=== PATIENT | male | born 1960 | race Caucasian/White ===

== ENCOUNTER 2021-05-10 09:22 | Outpatient (REF) | payer BC, SELFPAY ==
[2021-05-10 09:41] LABS: MANUAL DIFF FLAG NO
[2021-05-10 10:06] LABS: Basophils Percent Auto 0.4 % (0-2); Eosinophils Absolute Auto 0.1 X10*3/uL (0.0-0.4); Hematocrit 44.9 % (42.0-52.0); Hemoglobin 14.9 g/dl (14.0-18.0); Imm Gran Abs Auto 0.01 X10*3/uL (0.00-0.03); Imm Gran Pct Auto 0.2 % (0.0-0.4); Lymphocytes Absolute Auto 2.3 X10*3/uL (1.2-4.9); Lymphocytes Percent Auto 45.9 % (20-40); Mean Corpuscular HGB Conc 33.2 g/dl (31.0-36.0); Mean Corpuscular Hemoglobin 28.5 pg (27.0-33.0); Mean Corpuscular Volume 85.9 fL (80.0-98.0); Mean Platelet Volume 10.4 fL (9.4-12.4); Monocytes Absolute Auto 0.5 X10*3/uL (0.1-1.2); Monocytes Percent Auto 9.1 % (2-11); Neutrophils Absolute Auto 2.16 x10*3/uL (2.0-8.3); Neutrophils Percent Auto 43.4 % (45-73); Platelet Count 250 X10*3/uL (160-400); Red Blood Count 5.23 X10*6/uL (4.60-5.80); Red Cell Distribution Width 13.2 % (11.0-16.0)
[2021-05-10 10:42] LABS: Alanine Aminotransferase 31 U/L (0-40); Albumin Level 4.7 g/dL (3.5-5.0); Alkaline Phosphatase 50 U/L (39-117); Anion Gap 12 (12-20); Aspartate Amino Transferase 18 U/L (5-37); Blood Urea Nitrogen 14 mg/dL (9-16); Calcium 9.2 mg/dL (8.4-10.2); Carbon Dioxide 28 mmol/L (22-29); Chloride 105 mmol/L (96-108); Cholesterol 190 mg/dL; Estimated Glomerular Filt Rate > 60; Glucose Fasting 135 mg/dL (60-99); HDL Cholesterol 40 mg/dL; LDL Cholesterol Calculated 129 mg/dl; Potassium 4.9 mmol/L (3.3-5.1); Sodium 140 mmol/L (135-145); Total Protein 7.2 g/dL (6.5-8.0); Triglycerides 106 mg/dL
[2021-05-10 10:45] LABS: Thyroid Stimulating Hormone 2.31 uIU/mL (0.32-4.0)
== END 2021-05-10 09:23 | disposition home or self-care (01) ==
LOC: HO.LAB 09:22
PROVIDERS: PCP Internal Medicine; Visit Provider Internal Medicine
DX: Z00.00 Encounter for general adult medical examination without abnormal findings (principal); E11.9 Type 2 diabetes mellitus without complications; E03.9 Hypothyroidism, unspecified
CPT/HCPCS: 36415; 80053; 80061; 84443; 85025

== ENCOUNTER → 2021-06-27 12:52 | Outpatient (REF) | payer BC, SELFPAY | LOC: HO.SL 12:52 | PROVIDERS: PCP Internal Medicine; Visit Provider Internal Medicine | DX: R06.81 Apnea, not elsewhere classified (principal) | CPT/HCPCS: 95806 ==

== ENCOUNTER 2021-06-27 13:04 | Outpatient (REF) | payer BC, SELFPAY ==
[2021-06-27 16:11] LABS: COVID-19 Test Negative (Negative); IDNOW Serial# 16C4AD1C
== END 2021-06-27 13:05 | disposition home or self-care (01) ==
LOC: HO.LAB 13:04
PROVIDERS: Visit Provider Internal Medicine
DX: Z20.822 Contact with and (suspected) exposure to COVID-19 (principal)
CPT/HCPCS: 36415; 87635; C9803

== ENCOUNTER 2021-11-23 12:41 | Outpatient (REF) | payer BC, SELFPAY ==
--- NOTE | ~2021-11-23 | CT_ITS ---
CT SINUS WITHOUT CONTRAST CLINICAL INFORMATION: Deviated septum. Snoring. COMPARISON: Sinus CT 04/11/2018. TECHNIQUE: Multidetector CT acquisition of the maxillofacial region is obtained without contrast. Multiplanar reformats are acquired and utilized for image interpretation. This CT examination was performed using dose optimization techniques as appropriate, variously including the following: *Automated exposure control *Adjustment of mA and/or kV according to patient size (this includes techniques or standardized protocols for targeted exams where dose is matched to indication/reason for exam; i.e. extremities or head) *Use of iterative reconstruction technique FINDINGS: Significant polypoid opacification of the right maxillary sinus which also exhibits moderate mucosal thickening. There is mild mucosal thickening within the left maxillary sinus. The sphenoid sinuses are clear. The posterior right ethmoid air cell is opacified and there is mild mucosal thickening within the ethmoid air cells bilaterally. The frontal sinuses are clear. There is rightward deviation of the cartilaginous nasal septum and the bony cartilaginous nasal septal junction and there is leftward deviation of the bony nasal septum with a leftward directed nasal septal spur. Right maxillary ostium and infundibulum are opacified. No polypoid soft tissue within the nasal cavities. Left fovea ethmoidalis is 3 mm deeper than the right side. The bony orbits are intact. Internal carotid arteries remain well covered with bone. Mastoid air cells and middle ear cavities are clear. The TMJs are normal. Significant periapical lucency surrounding the roots of the right first maxillary molar with associated focal dehiscence of the right maxillary sinus floor, predisposing to odontogenic sinusitis. Possible superior semicircular canal dehiscence bilaterally that can be correlated for clinical signs of third window phenomenon. No significant soft tissue findings. CT/CT sinus wo con IMPRESSION: - Significant polypoid opacification of the right maxillary sinus which also exhibits moderate mucosal thickening. Right maxillary ostium and infundibulum are opacified. Additional mild sinus mucosal disease as described. - There is rightward deviation of the cartilaginous nasal septum and the bony cartilaginous nasal septal junction and there is leftward deviation of the bony nasal septum with a leftward directed nasal septal spur. - Significant periapical lucency surrounding the roots of the right first maxillary molar with associated focal dehiscence of the right maxillary sinus floor, predisposing to odontogenic sinusitis. - Possible superior semicircular canal dehiscence bilaterally that can be correlated for clinical signs of third window phenomenon.
== END 2021-11-23 12:42 | disposition home or self-care (01) ==
LOC: HO.CT 12:41
PROVIDERS: PCP Internal Medicine; Visit Provider Otolaryngology
DX: J34.2 Deviated nasal septum (principal); R06.83 Snoring
CPT/HCPCS: 70486

== ENCOUNTER 2022-05-23 09:00 | Outpatient (REF) | payer BC, SELFPAY ==
[2022-05-23 09:15] LABS: MANUAL DIFF FLAG NO
[2022-05-23 10:09] LABS: Basophils Percent Auto 0.5 % (0-2); Eosinophils Absolute Auto 0.1 X10*3/uL (0.0-0.4); Eosinophils Percent Auto 0.8 % (0-4); Hematocrit 43.7 % (42.0-52.0); Hemoglobin 14.9 g/dl (14.0-18.0); Imm Gran Abs Auto 0.02 X10*3/uL (0.00-0.03); Imm Gran Pct Auto 0.3 % (0.0-0.4); Lymphocytes Absolute Auto 2.5 X10*3/uL (1.2-4.9); Lymphocytes Percent Auto 42.2 % (20-40); Mean Corpuscular HGB Conc 34.1 g/dl (31.0-36.0); Mean Corpuscular Hemoglobin 29.3 pg (27.0-33.0); Mean Corpuscular Volume 85.9 fL (80.0-98.0); Mean Platelet Volume 9.9 fL (9.4-12.4); Monocytes Absolute Auto 0.5 X10*3/uL (0.1-1.2); Monocytes Percent Auto 7.5 % (2-11); Neutrophils Absolute Auto 2.9 x10*3/uL (2.0-8.3); Neutrophils Percent Auto 48.7 % (45-73); Platelet Count 240 X10*3/uL (160-400); Red Blood Count 5.09 X10*6/uL (4.60-5.80)
[2022-05-23 10:22] LABS: Alanine Aminotransferase 38 U/L (0-40); Albumin Level 4.5 g/dL (3.5-5.0); Alkaline Phosphatase 56 U/L (39-117); Anion Gap 13 (12-20); Aspartate Amino Transferase 20 U/L (5-37); Bilirubin Total 0.4 mg/dL (0.0-1.0); Blood Urea Nitrogen 10 mg/dL (9-16); Calcium 9.1 mg/dL (8.4-10.2); Carbon Dioxide 27 mmol/L (22-29); Chloride 103 mmol/L (96-108); Cholesterol 209 mg/dL; Estimated Glomerular Filt Rate > 60; Glucose Fasting 164 mg/dL (60-99); HDL Cholesterol 40 mg/dL; LDL Cholesterol Calculated 130 mg/dl; Potassium 4.3 mmol/L (3.3-5.1); Sodium 139 mmol/L (135-145); Total Protein 7.1 g/dL (6.5-8.0); Triglycerides 196 mg/dL
[2022-05-23 10:44] LABS: Thyroid Stimulating Hormone 3.12 uIU/mL (0.32-4.0)
[2022-05-23 10:47] LABS: Estimated Average Glucose 146 mg/dL; Hemoglobin A1c % 6.7 %
== END 2022-05-23 09:01 | disposition home or self-care (01) ==
LOC: HO.LAB 09:00
PROVIDERS: PCP Internal Medicine; Visit Provider Internal Medicine
DX: E78.5 Hyperlipidemia, unspecified (principal); E03.9 Hypothyroidism, unspecified; E11.9 Type 2 diabetes mellitus without complications; I10 Essential (primary) hypertension; Z13.0 Encounter for screening for diseases of the blood and blood-forming organs and certain disorders involving the immune mechanism
CPT/HCPCS: 36415; 80053; 80061; 83036; 84443; 85025

== ENCOUNTER 2023-02-06 13:25 | Outpatient (AMB) | payer BC, SELFPAY ==
--- NOTE | 2023-02-06 13:26 | MHC.PC.OV ---
Vital Signs 02/06/23 13:27 Height 5 ft 11 in Weight 211 lb 6 oz BMI 29.5 BP 140/90 H Blood Pressure Location Lt brachial Position Sitting Pulse 85 Pulse Source Pulse Oximeter Pulse Oximetry (%) 96 Oxygen Delivery Method Room Air Intake Visit Reasons: Med Review Intake Note: Patient is here to follow up on medication review. 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 Sister No problems noted. Daughter No problems noted. Daughter No problems noted. Social History Housing: House Alcohol intake: current Alcohol intake frequency: a few times a week Alcohol type: beer Patient Tobacco Use Status: Never used Tobacco e-Cigarette/Vaping Use: Never Used Second Hand Smoke Exposure: Yes service: No Current occupational status: employed Current occupational exposures/hazards: No Cognitive needs: No Hearing needs: No Vision needs: No Questionnaire PHQ-9 Over the last 2 weeks, how often have you been bothered by any of the following problems? Depression Screening Interpretation: Negative Source: Developed by Drs. Scot Ruiz, Michael Ocampo and colleagues, with an educational tito from [employer]. Thrive Questionnaire Date Thrive assessed: 11/17/22 Currently or been in a relationship where the following occur: no concerns reported SUZANNE-7 AMB Questionnaire SUZANNE-7 Date SUZANNE - 7 assessed: 11/17/22 Source: Developed by Drs. Scot Ruiz, Michael Ocampo and colleagues, with an educational tito from [employer]. Review of Systems Const Denies chills, Denies headache(s) and Denies weight loss ENT Denies headache(s) Card Denies chest pain, Denies syncope, Denies irregular heart rhythm and Denies dyspnea Resp Denies chest congestion, Denies cough and Denies dyspnea GI Denies abdominal pain, Denies change in stool character, Denies nausea and Denies vomiting Musc Denies deformity and Denies joint swelling Neuro Denies syncope and Denies headache(s) Physical exam (Primary Care) Vital Signs: Last Vital Signs Pulse 85 02/06/23 13:27 BP 140/90 H 02/06/23 13:27 Pulse Ox 96 02/06/23 13:27 Oxygen Delivery Method Room Air 02/06/23 13:27 BMI result Body Mass Index 29.5 Tobacco/Smoking Status: Tobacco use Status Tobacco use date assessed 02/06/23 02/06/23 13:31 Patient Tobacco Use Status Never used Tobacco 02/06/23 13:31 e-Cigarette/Vaping Use Never Used 02/06/23 13:31 Depression Screening Interpretation: Negative Thrive Assessment: Date of Thrive Assessment Date Thrive assessed 11/17/22 02/06/23 13:31 Currently or been in a relationship where the following occur: no concerns reported Const General: cooperative, comfortable and no acute distress Resp Effort & Inspection: normal respiratory effort Auscultation: clear to auscultation bilaterally Percussion: percussion normal Cardio Jugular venous distension: no JVD Rate: regular rate Rhythm: regular rhythm GI Inspection: Yes normal to inspection Assessment and Plan Assessment & Plan (1) Back pain: Code(s): M54.9 - Dorsalgia, unspecified Plan: stable; same rx Medications: Refilled oxycodone 5 mg PO Q6H PRN 112 tabs 0RF pain 28 days sildenafil administer 30 minutes to 4 hours before activity 50 mg PO DAILY PRN 60 tabs 8RF sexual activity Coding Level of Care Code Est Pt Level 3 (49970) Diagnoses Back pain M54.9
[2023-02-06 13:27] VITALS: BP 140/90; PULSE 85; O2SAT 96; BMI 29.5
== END 2023-02-06 13:55 | disposition home or self-care (01) ==
PROVIDERS: PCP Internal Medicine; Visit Provider Internal Medicine
DX: M54.9 Dorsalgia, unspecified (principal)
CPT/HCPCS: 99213

== ENCOUNTER 2023-03-06 13:04 | Outpatient (AMB) | payer BC, SELFPAY ==
--- NOTE | 2023-03-06 13:05 | A.OFFPC_ITS ---
Vital Signs 03/06/23 13:06 Height 5 ft 11 in Weight 208 lb 8 oz BMI 29.1 BP 136/82 Blood Pressure Location Lt brachial Position Sitting Pulse 104 H Pulse Source Pulse Oximeter Pulse Oximetry (%) 96 Oxygen Delivery Method Room Air Intake Visit Reasons: Med Review Intake Note: Patient is here to follow up on med review. 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 Sister No problems noted. Daughter No problems noted. Daughter No problems noted. Social History Housing: House Alcohol intake: current Alcohol intake frequency: a few times a week Alcohol type: beer Patient Tobacco Use Status: Never used Tobacco e-Cigarette/Vaping Use: Never Used Second Hand Smoke Exposure: Yes service: No Current occupational status: employed Current occupational exposures/hazards: No Cognitive needs: No Hearing needs: No Vision needs: No Questionnaire PHQ-9 Over the last 2 weeks, how often have you been bothered by any of the following problems? Depression Screening Interpretation: Negative Source: Developed by Drs. Scot Ruiz, Michael Ocampo and colleagues, with an educational tito from [employer] Thrive Questionnaire Date Thrive assessed: 11/17/22 Currently or been in a relationship where the following occur: no concerns reported SUZANNE-7 AMB Questionnaire SUZANNE-7 Date SUZANNE - 7 assessed: 11/17/22 Source: Developed by Drs. Scot Ruiz, Michael Ocampo and colleagues, with an educational tito from [employer] Review of Systems Const Denies chills, Denies headache(s) and Denies weight loss ENT Denies headache(s) Card Denies chest pain, Denies syncope, Denies irregular heart rhythm and Denies dyspnea Resp Denies chest congestion, Denies cough and Denies dyspnea GI Denies abdominal pain, Denies change in stool character, Denies nausea and Denies vomiting Musc Denies deformity and Denies joint swelling Neuro Denies syncope and Denies headache(s) Physical exam (Primary Care) Vital Signs: Last Vital Signs Pulse 104 H 03/06/23 13:06 BP 136/82 03/06/23 13:06 Pulse Ox 96 03/06/23 13:06 Oxygen Delivery Method Room Air 03/06/23 13:06 BMI result Body Mass Index 29.1 Tobacco/Smoking Status: Tobacco use Status Tobacco use date assessed 03/06/23 03/06/23 13:10 Patient Tobacco Use Status Never used Tobacco 03/06/23 13:10 e-Cigarette/Vaping Use Never Used 03/06/23 13:10 Depression Screening Interpretation: Negative Thrive Assessment: Date of Thrive Assessment Date Thrive assessed 11/17/22 03/06/23 13:10 Currently or been in a relationship where the following occur: no concerns repo rted Const General: cooperative, comfortable and no acute distress Resp Effort & Inspection: normal respiratory effort Auscultation: clear to auscultation bilaterally Percussion: percussion normal Cardio Jugular venous distension: no JVD Rate: regular rate Rhythm: regular rhythm GI Inspection: Yes normal to inspection Assessment and Plan Assessment & Plan (1) Back pain: Code(s): M54.9 - Dorsalgia, unspecified Plan: stable; same rx Medications: Refilled oxycodone 5 mg PO Q6H PRN 112 tabs 0RF pain 28 days Coding Level of Care Code Est Pt Level 3 (05411) Diagnoses Back pain M54.9
[2023-03-06 13:06] VITALS: BP 136/82; PULSE 104; O2SAT 96; BMI 29.1
== END 2023-03-06 13:24 | disposition home or self-care (01) ==
PROVIDERS: PCP Internal Medicine; Visit Provider Internal Medicine
DX: M54.9 Dorsalgia, unspecified (principal)
CPT/HCPCS: 99213

== ENCOUNTER 2023-04-03 13:21 | Outpatient (AMB) | payer BC, SELFPAY ==
[2023-04-03 14:00] VITALS: BP 132/62; PULSE 67; O2SAT 98; BMI 29.0
--- NOTE | 2023-04-03 14:00 | A.OFFPC_ITS ---
Vital Signs 04/03/23 14:00 Height 5 ft 11 in Weight 208 lb BMI 29.0 BP 132/62 Blood Pressure Location Lt brachial Position Sitting Pulse 67 Pulse Source Pulse Oximeter Pulse Oximetry (%) 98 Oxygen Delivery Method Room Air Intake Visit Reasons: Med Management Utility Specialist: Not Required per policy Accompanied by: Self / Same As Patient Allergies No Known Allergies Allergy (Verified 04/03/23 14:00) Medication List - Last Reconciled 04/03/23 by Juaquin Martin MD oxycodone 5 mg PO Q6H PRN 28 days sildenafil 50 mg PO DAILY PRN Tobacco use date assessed: 03/06/23 Dental Screening Dental Screen Date: 04/03/23 Did you have a dental visit in the last 12 months?: No Did you have a dental problem in the last 6 months where you did not have access to dental care?: No Was dental information given to patient?: Patient has dentist HPI Med Management HPI Details f/u chronic back pain; doing well; compliant [facility] Medical History Back pain Surgical History History of vasectomy Family History Father Heart disease Mother Diabetes Brother No problems noted. Sister No problems noted. Daughter No problems noted. Daughter No problems noted. Social History Housing: House Alcohol intake: current Alcohol intake frequency: a few times a week Alcohol type: beer Patient Tobacco Use Status: Never used Tobacco e-Cigarette/Vaping Use: Never Used Second Hand Smoke Exposure: Yes service: No Current occupational status: employed Current occupational exposures/hazards: No Cognitive needs: No Hearing needs: No Vision needs: No Questionnaire PHQ-9 Over the last 2 weeks, how often have you been bothered by any of the following problems? 1. Little interest or pleasure in doing things: not at all 2. Feeling down, depressed, or hopeless: not at all 3. Trouble falling or staying asleep, or sleeping too much: not at all 4. Feeling tired or having little energy: not at all 5. Poor appetite or overeating: not at all 6. Feeling bad about yourself - or that you are a failure or have let yourself or your family down: not at all 7. Trouble concentrating on things, such as reading the newspaper or watching television: not at all 8. Moving or speaking so slowly that other people could have noticed. Or the opposite - being so fidgety or restless that you have been moving around a lot more than usual: not at all 9. Thoughts that you would be better off or of hurting yourself in some way: not at all Total score: 0 Depression Screening Interpretation: Negative 22336 - PHQ-9 Billing: Yes Source: Developed by Drs. Scot Ruiz, Jessica Shelton, Michael Martinez and colleagues, with an educational tito from [employer]. Thrive Questionnaire Date Thrive assessed: 11/17/22 AUDIT C Alcohol Use Questionnaire (AUDIT-C) 1. How often do you have a drink containing alcohol?: 4 or more times a week 2. How many drinks containing alcohol do you have on a typical day when you are drinking?: 1 or 2 3. How often do you have six or more drinks on one occasion?: Never Total Score: 4 Score Reviewed/Action Taken: Yes SUZANNE-7 AMB Questionnaire SUZANNE-7 Date SUZANNE - 7 assessed: 11/17/22 Source: Developed by Drs. Scot Ruiz, Jessica Shelton, Michael Martinez and colleagues, with an educational tito from [employer]. SUZANNE-7 Assessment Billing SUZANNE-7 Assessment Tool: SUZANNE-7 Assessment 94110 Review of Systems Const Denies chills, Denies headache(s) and Denies weight loss ENT Denies headache(s) Card Denies chest pain, Denies syncope, Denies irregular heart rhythm and Denies dyspnea Resp Denies chest congestion, Denies cough and Denies dyspnea GI Denies abdominal pain, Denies change in stool character, Denies nausea and Denies vomiting Musc Denies deformity and Denies joint swelling Neuro Denies syncope and Denies headache(s) Physical exam (Primary Care) Vital Signs: Last Vital Signs Pulse 67 04/03/23 14:00 BP 132/62 04/03/23 14:00 Pulse Ox 98 04/03/23 14:00 Oxygen Delivery Method Room Air 04/03/23 14:00 BMI result Body Mass Index 29.0 Tobacco/Smoking Status: Tobacco use Status Tobacco use date assessed 03/06/23 04/03/23 14:01 Patient Tobacco Use Status Never used Tobacco 04/03/23 14:01 e-Cigarette/Vaping Use Never Used 04/03/23 14:01 PHQ-9: PHQ-9 Score PHQ-9: Total score 0 04/03/23 14:47 Depression Screening Interpretation: Negative Thrive Assessment: Date of Thrive Assessment Date Thrive assessed 11/17/22 04/03/23 14:01 Const General: cooperative, comfortable, no acute distress and alert Neck Neck: Yes no lymphadenopathy Thyroid: Thyroid normal Resp Effort & Inspection: normal respiratory effort Auscultation: clear to auscultation bilaterally Percussion: percussion normal Cardio Jugular venous distension: no JVD Palpation: normal PMI Rate: regular rate Rhythm: regular rhythm Heart sounds: S1 normal heart sound present and S2 normal heart sound present GI Inspection: Yes normal to inspection Palpation (GI): No hepatosplenomegaly present Skin General skin exam: no rashes or lesions noted Extrem General: Yes no clubbing, cyanosis or edema Assessment and Plan Assessment & Plan (1) Back pain: Code(s): M54.9 - Dorsalgia, unspecified Plan: stable; same rx Medications: New loratadine (Allergy Relief (loratadine)) 10 mg PO DAILY PRN 60 tabs 3RF allergy symptoms Refilled oxycodone 5 mg PO Q6H PRN 112 tabs 0RF pain 28 days Coding Level of Care Code Est Pt Level 3 (37110) Diagnoses Back pain M54.9 Additional Codes SUZANNE-7 Assessment Billing - SUZANNE-7 Assessment Tool: SUZANNE-7 Assessment [id number] ([id number])
== END 2023-04-03 15:42 | disposition home or self-care (01) ==
PROVIDERS: PCP Internal Medicine; Visit Provider Internal Medicine
DX: M54.9 Dorsalgia, unspecified (principal)
CPT/HCPCS: 99213

== ENCOUNTER 2023-05-01 13:54 | Outpatient (AMB) | payer BC, SELFPAY ==
--- NOTE | 2023-05-01 13:57 | A.OFFPC_ITS ---
Vital Signs 05/01/23 13:58 Height 5 ft 11 in Weight 208 lb BMI 29.0 BP 154/94 H Blood Pressure Location Lt brachial Position Sitting Pulse 68 Pulse Source Pulse Oximeter Pulse Oximetry (%) 98 Oxygen Delivery Method Room Air Intake Visit Reasons: Med Management Allergies No Known Allergies Allergy (Verified 05/01/23 13:58) Medication List - Last Reconciled 05/01/23 by Juaquin Martin MD loratadine (Allergy Relief (loratadine)) 10 mg PO DAILY PRN oxycodone 5 mg PO Q6H PRN 28 days sildenafil 50 mg PO DAILY PRN Tobacco use date assessed: 03/06/23 Dental Screening Dental Screen Date: 05/01/23 Did you have a dental visit in the last 12 months?: No Did you have a dental problem in the last 6 months where you did not have access to dental care?: No Was dental information given to patient?: Patient has dentist HPI Med Management HPI Details chronic back pain; doing well and compliant [facility] Medical History Back pain Surgical History History of vasectomy Family History Father Heart disease Mother Diabetes Brother No problems noted. Sister No problems noted. Daughter No problems noted. Daughter No problems noted. Social History Housing: House Alcohol intake: current Alcohol intake frequency: a few times a week Alcohol type: beer Patient Tobacco Use Status: Never used Tobacco e-Cigarette/Vaping Use: Never Used Second Hand Smoke Exposure: Yes service: No Current occupational status: employed Current occupational exposures/hazards: No Cognitive needs: No Hearing needs: No Vision needs: No Questionnaire PHQ-9 Over the last 2 weeks, how often have you been bothered by any of the following problems? 1. Little interest or pleasure in doing things: not at all 2. Feeling down, depressed, or hopeless: not at all 3. Trouble falling or staying asleep, or sleeping too much: not at all 4. Feeling tired or having little energy: not at all 5. Poor appetite or overeating: not at all 6. Feeling bad about yourself - or that you are a failure or have let yourself or your family down: not at all 7. Trouble concentrating on things, such as reading the newspaper or watching television: not at all 8. Moving or speaking so slowly that other people could have noticed. Or the opposite - being so fidgety or restless that you have been moving around a lot more than usual: not at all 9. Thoughts that you would be better off or of hurting yourself in some way: not at all Total score: 0 Depression Screening Interpretation: Negative Depression Screening Done: Yes [id number] - PHQ-9 Billing: Yes Source: Developed by Drs. Scot Ruiz, Jessica Shelton, Michael Martinez and colleagues, with an educational tito from [employer]. Thrive Questionnaire Date Thrive assessed: 11/17/22 AUDIT C Alcohol Use Questionnaire (AUDIT-C) 1. How often do you have a drink containing alcohol?: 4 or more times a week 2. How many drinks containing alcohol do you have on a typical day when you are drinking?: 1 or 2 3. How often do you have six or more drinks on one occasion?: Never Total Score: 4 Score Reviewed/Action Taken: Yes SUZANNE-7 AMB Questionnaire SUZANNE-7 Date SUZANNE - 7 assessed: 11/17/22 Source: Developed by Drs. Scot Ruiz, Michael Ocampo and colleagues, with an educational tito from [employer]. Review of Systems Const Denies chills, Denies headache(s) and Denies weight loss ENT Denies headache(s) Card Denies chest pain, Denies syncope, Denies irregular heart rhythm and Denies dyspnea Resp Denies chest congestion, Denies cough and Denies dyspnea GI Denies abdominal pain, Denies change in stool character, Denies nausea and Denies vomiting Musc Denies deformity and Denies joint swelling Neuro Denies syncope and Denies headache(s) Physical exam (Primary Care) Vital Signs: Last Vital Signs Pulse 68 05/01/23 13:58 BP 154/94 H 05/01/23 13:58 Pulse Ox 98 05/01/23 13:58 Oxygen Delivery Method Room Air 05/01/23 13:58 BMI result Body Mass Index 29.0 Tobacco/Smoking Status: Tobacco use Status Tobacco use date assessed 03/06/23 05/01/23 13:59 Patient Tobacco Use Status Never used Tobacco 05/01/23 13:59 e-Cigarette/Vaping Use Never Used 05/01/23 13:59 PHQ-9: PHQ-9 Score PHQ-9: Total score 0 05/01/23 14:05 Depression Screening Interpretation: Negative Thrive Assessment: Date of Thrive Assessment Date Thrive assessed 11/17/22 05/01/23 13:59 Const General: cooperative, comfortable, no acute distress and alert Neck Neck: Yes no lymphadenopathy Thyroid: Thyroid normal Resp Effort & Inspection: normal respiratory effort Auscultation: clear to auscultation bilaterally Percussion: percussion normal Cardio Jugular venous distension: no JVD Palpation: normal PMI Rate: regular rate Rhythm: regular rhythm Heart sounds: S1 normal heart sound present and S2 normal heart sound present GI Inspection: Yes normal to inspection Palpation (GI): No hepatosplenomegaly present Skin General skin exam: no rashes or lesions noted Extrem General: Yes no clubbing, cyanosis or edema Assessment and Plan Assessment & Plan (1) Back pain: Code(s): M54.9 - Dorsalgia, unspecified Plan: stable; same rx Medications: New azithromycin take 500 mg today (day 1), then 250 mg for 4 days (days 2-5) PO 6 tabs 0RF Refilled oxycodone 5 mg PO Q6H PRN 112 tabs 0RF pain 28 days Coding Level of Care Code Est Pt Level 3 (51579) Diagnoses Back pain M54.9
[2023-05-01 13:58] VITALS: BP 154/94; PULSE 68; O2SAT 98; BMI 29.0
== END 2023-05-01 14:11 | disposition home or self-care (01) ==
PROVIDERS: PCP Internal Medicine; Visit Provider Internal Medicine
DX: M54.9 Dorsalgia, unspecified (principal)
CPT/HCPCS: 99213

== ENCOUNTER 2023-05-23 10:14 | Outpatient (AMB) | payer OTHER, BC, SELFPAY ==
--- NOTE | 2023-05-23 10:45 | AM.OFFWIN_ITS ---
Intake Vital Signs 05/23/23 10:51 Height 5 ft 11 in Weight 95.254 kg BMI 29.3 BP 160/80 H Blood Pressure Location Rt brachial Position Sitting Pulse 83 Pulse Source Pulse Oximeter Temp 97.8 F Temp Source Temporal Artery Scan Pulse Oximetry (%) 98 Intake Visit Reasons: EP Work Comp injured lft low back lifting Intake Note: pt is here for c/o back pain due to lifting this morning Patient Tobacco Use Status: Never used Tobacco Allergies No Known Allergies Allergy (Verified 05/23/23 10:53) Do you need a note to return to daycare/school/sports/work: Yes HPI HPI Comments History of Present Illness Details [id number] 62-year-old male without significant medical history presents for evaluation of lower back pain that started at around 9 this morning at his workplace, patient reports he was lifting and 90 lb box, after lifting the box he reports he immediately started experiencing left lower back pain without radiation, reports an aching pain, worse with movement and ambulation better at rest. Patient had a remote history of back issues in the past however this feels slightly different. Denies red flag symptoms such as urinary /bowel incontinence /retention, numbness, tingling, weakness of fevers, chills. No midline tenderness, no C-spine tenderness, full range of motion, no CVA tenderness bilaterally + TTP to left lumbar paraspinous muscles throughout + straight leg raise on the left Likely lumbar paraspinous muscle spasms versus herniated disc versus lumbar radiculopathy versus sciatica. Unlikely cord compression, epidural abscess, cauda equina. Plan will discharge with naproxen, Lidoderm patch, prednisone. Will obtain x- ray of lower back. Educated patient on diagnosis and treatment plan, answered all question, patient verbalizes understanding. At this time patient will be discharged home, advised to return with new or worsening symptoms. Educated on worrisome signs and symptoms and when to return. At this time I feel comfortable discharge home. [facility] Medical History Back pain Surgical History History of vasectomy Family History Father Heart disease Mother Diabetes Brother No problems noted. Sister No problems noted. Daughter No problems noted. Daughter No problems noted. Social History Housing: House Alcohol intake: current Alcohol intake frequency: a few times a week Alcohol type: beer Patient Tobacco Use Status: Never used Tobacco e-Cigarette/Vaping Use: Never Used Second Hand Smoke Exposure: Yes service: No Current occupational status: employed Current occupational exposures/hazards: No Cognitive needs: No Hearing needs: No Vision needs: No Review of Systems Const Details: Constitutional : No Weight loss, No Fever, No Chills, ENT/Mouth : No Hearing loss, No Ear Pain, No Nasal Congestion, No Sinus Pain, No Hoarseness, No sore throat, No Rhinorrhea, No Swallowing Difficulty Cardiovascular : No Chest Pain, No SOB Respiratory : No Cough, No Dyspnea Gastrointestinal : No Nausea, No Vomiting, No Diarrhea, No abdominal Pain, No Hematochezia, No Melena Genitourinary : No Dysuria, No Urinary Frequency, No Hematuria, No Urinary Incontinence, Musculoskeletal : positive back pain Skin : No Skin Lesions, No rash Neuro : No Weakness, No Numbness, No Paresthesias, no loss of bowel or bladder incontinence, no saddle anesthesia All systems reviewed & are unremarkable except as noted in HPI and below Physical Exam Vital Signs: Last Vital Signs Temp 97.8 F 05/23/23 10:51 Pulse 83 05/23/23 10:51 BP 160/80 H 05/23/23 10:51 Pulse Ox 98 05/23/23 10:51 BMI result Body Mass Index 29.3 vss Appearance: Alert.? Oriented X3.? No acute distress.? Head: Normocephalic, atraumatic, no step-offs or deformities Eyes: Pupils equal, round and reactive to light.? CVS: Normal heart rate and rhythm.? Pulses normal.? Respiratory: No respiratory distress.? Breath sounds normal.? Abdomen: Soft and nontender.? Skin: Skin warm and dry.? Normal skin color.? Normal skin turgor.? Extremities: No lower extremity edema.? No calf ttp. 5/5 strength to bilateral upper and lower extremities Back: No midline tenderness, no C-spine tenderness, full range of motion, no CVA tenderness bilaterally + TTP to left lumbar paraspinous muscles throughout + straight leg raise on the left Neuro: Oriented X 3.? No motor deficit.? No sensory deficit. CN 2-12 intact . Ambulating with steady gait normal coordination. No saddle paresthesias. Assessment & Plan Assessment & Plan (1) Lower back pain: Code(s): M54.50 - Low back pain, unspecified (2) Work related injury: Code(s): Y99.0 - Civilian activity done for income or pay Plan Take your medications as prescribed. If you were prescribed antibiotics today, it is important that you take your medication to their entirety, do not skip any doses, do not finish them early. Follow-up with your primary care provider this week. Return to the emergency department with new or worsening symptoms. Such as fevers, chills, chest pain, shortness of breath, nausea, vomiting, dizziness, headache, vision changes, lethargy In case of emergency call 911 Follow-up with the work connection Orders: Orders XR lumbar spine 2-3V Today M54.50 - Low back pain, unspecified Medications: New prednisone 40 mg (2 x 20 mg) PO DAILY 10 tabs 0RF 5 days lidocaine 4% (AsperFlex (lidocaine)) 1 patch topical DAILY PRN 15 ea 0RF pain naproxen 500 mg PO BID PRN 14 tabs 0RF pain Coding Level of Care Code Est Pt Level 3 (15961) Diagnoses Lower back pain M54.50 Work related injury Y99.0
[2023-05-23 10:51] VITALS: BP 160/80; PULSE 83; TEMP 36.6; O2SAT 98; BMI 29.3
== END 2023-05-23 11:40 | disposition home or self-care (01) ==
PROVIDERS: PCP Internal Medicine; Visit Provider Physician Assistant
DX: M54.50 Low back pain, unspecified (principal); Y99.0 Civilian activity done for income or pay
CPT/HCPCS: 99213

== ENCOUNTER 2023-05-23 11:16 | Outpatient (REF) | payer OTHER, SELFPAY ==
--- NOTE | ~2023-05-23 | XR_ITS ---
EXAMINATION: XR LUMBOSACRAL SPINE CLINICAL INFORMATION: Low back pain COMPARISON: None available. TECHNIQUE: Three views of the lumbosacral spine. FINDINGS: There is anterior spondylitic change observed L2-L4. No fracture or destructive process. Vertebral body heights preserved. SI joints are symmetric. XR/XR lumbar spine 2-3V IMPRESSION: Degenerative changes noted.
== END 2023-05-23 11:17 | disposition home or self-care (01) ==
LOC: HO.HMGCX 11:16
PROVIDERS: Visit Provider Physician Assistant
DX: M54.50 Low back pain, unspecified (principal)
CPT/HCPCS: 72100

== ENCOUNTER 2023-05-25 07:53 | Outpatient (REF) | payer BC, SELFPAY ==
[2023-05-25 08:10] LABS: MANUAL DIFF FLAG NO
[2023-05-25 08:22] LABS: Basophils Percent Auto 0.3 % (0-2); Eosinophils Percent Auto 0.3 % (0-4); Hematocrit 42.8 % (42.0-52.0); Hemoglobin 14.8 g/dl (14.0-18.0); Imm Gran Abs Auto 0.02 X10*3/uL (0.00-0.03); Imm Gran Pct Auto 0.2 % (0.0-0.4); Lymphocytes Absolute Auto 2.8 X10*3/uL (1.2-4.9); Lymphocytes Percent Auto 30.3 % (20-40); Mean Corpuscular HGB Conc 34.6 g/dl (31.0-36.0); Mean Corpuscular Volume 83.9 fL (80.0-98.0); Mean Platelet Volume 9.7 fL (9.4-12.4); Monocytes Absolute Auto 0.7 X10*3/uL (0.1-1.2); Monocytes Percent Auto 7.2 % (2-11); Neutrophils Absolute Auto 5.7 x10*3/uL (2.0-8.3); Neutrophils Percent Auto 61.7 % (45-73); Platelet Count 251 X10*3/uL (160-400); Red Cell Distribution Width 13.2 % (11.0-16.0); White Blood Count 9.3 X10*3/uL (4.8-10.8)
[2023-05-25 08:42] LABS: Alanine Aminotransferase 20 U/L (0-40); Albumin Level 4.3 g/dL (3.5-5.0); Alkaline Phosphatase 57 U/L (39-117); Anion Gap 11 (12-20); Aspartate Amino Transferase 13 U/L (5-37); Bilirubin Total 0.6 mg/dL (0.0-1.0); Blood Urea Nitrogen 14 mg/dL (9-16); Calcium 8.8 mg/dL (8.4-10.2); Carbon Dioxide 26 mmol/L (22-29); Chloride 105 mmol/L (96-108); Cholesterol 190 mg/dL (<200); Estimated Glomerular Filt Rate > 60; Glucose Fasting 167 mg/dL (60-99); HDL Cholesterol 47 mg/dL (>40); LDL Cholesterol Calculated 124 mg/dL (<100); Sodium 138 mmol/L (135-145); Total Protein 7.3 g/dL (6.5-8.0); Triglycerides 95 mg/dL (<150)
[2023-05-25 08:57] LABS: Prostate Specific Antigen Scr 1.21 ng/mL (<0.05-4.0)
[2023-05-25 08:58] LABS: Thyroid Stimulating Hormone 3.16 uIU/mL (0.32-4.0)
== END 2023-05-25 07:54 | disposition home or self-care (01) ==
LOC: HO.LAB 07:53
PROVIDERS: PCP Internal Medicine; Visit Provider Internal Medicine
DX: Z00.00 Encounter for general adult medical examination without abnormal findings (principal); D64.9 Anemia, unspecified; N28.9 Disorder of kidney and ureter, unspecified; E78.5 Hyperlipidemia, unspecified; E03.9 Hypothyroidism, unspecified; Z12.5 Encounter for screening for malignant neoplasm of prostate
CPT/HCPCS: 36415; 80053; 80061; 84153; 84443; 85025

== ENCOUNTER 2023-05-28 12:34 | Outpatient (AMB) | payer BC, SELFPAY ==
--- NOTE | 2023-05-28 12:36 | MHC.PC.OV ---
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 per policy Accompanied by: Self / Same As Patient Allergies No Known Allergies Allergy (Verified 05/28/23 12:37) Medication List - Last Reconciled 05/28/23 by Juaquin Martin MD lidocaine 4% (AsperFlex (lidocaine)) 1 patch topical DAILY PRN loratadine (Allergy Relief (loratadine)) 10 mg PO DAILY PRN naproxen 500 mg PO BID PRN oxycodone 5 mg PO Q6H PRN 28 days prednisone 40 mg (2 x 20 mg) PO DAILY 5 days sildenafil 50 mg PO DAILY PRN Tobacco use date assessed: 03/06/23 Dental Screening Dental Screen Date: 05/28/23 Did you have a dental visit in the last 12 months?: Yes Did you have a dental problem in the last 6 months where you did not have access to dental care?: No Was dental information given to patient?: Patient has dentist HPI Annual Exam HPI Details chronic lumbar pain due to LDD; injured last week at work lifting with worse left paralumbar and pelvic pain; also has hyperglycemia with last A1C 6.7 PFSH Medical History Back pain Surgical History History of vasectomy Family History Father Heart disease Mother Diabetes Brother No problems noted. Sister No problems noted. Daughter No problems noted. Daughter No problems noted. Social History Housing: House Alcohol intake: current Alcohol intake frequency: a few times a week Alcohol type: beer Patient Tobacco Use Status: Never used Tobacco e-Cigarette/Vaping Use: Never Used Second Hand Smoke Exposure: Yes service: No Current occupational status: employed Current occupational exposures/hazards: No Cognitive needs: No Hearing needs: No Vision needs: No Questionnaire PHQ-9 Over the last 2 weeks, how often have you been bothered by any of the following problems? 1. Little interest or pleasure in doing things: not at all 2. Feeling down, depressed, or hopeless: not at all 3. Trouble falling or staying asleep, or sleeping too much: not at all 4. Feeling tired or having little energy: not at all 5. Poor appetite or overeating: not at all 6. Feeling bad about yourself - or that you are a failure or have let yourself or your family down: not at all 7. Trouble concentrating on things, such as reading the newspaper or watching television: not at all 8. Moving or speaking so slowly that other people could have noticed. Or the opposite - being so fidgety or restless that you have been moving around a lot more than usual: not at all 9. Thoughts that you would be better off or of hurting yourself in some way: not at all Total score: 0 Depression Screening Interpretation: Negative Depression Screening Done: Yes 25340 - PHQ-9 Billing: Yes Source: Developed by Drs. Scot Ruiz, Michael Ocampo and colleagues, with an educational tito from [employer]. Thrive Questionnaire Date Thrive assessed: 11/17/22 AUDIT C Alcohol Use Questionnaire (AUDIT-C) 1. How often do you have a drink containing alcohol?: 4 or more times a week 2. How many drinks containing alcohol do you have on a typical day when you are drinking?: 1 or 2 3. How often do you have six or more drinks on one occasion?: Never Total Score: 4 Score Reviewed/Action Taken: Yes SUZANNE-7 AMB Questionnaire SUZANNE-7 Date SUZANNE - 7 assessed: 11/17/22 Source: Developed by Drs. Scot Ruiz, Michael Ocampo and colleagues, with an educational tito from [employer]. Review of Systems Const Denies chills, Denies fatigue, Denies headache(s) and Denies weight loss Eyes Denies change in vision, Denies diplopia and Denies eye pain ENT Denies vertigo, Denies dizziness, Denies headache(s) and Denies nasal discharge Card Denies chest pain, Denies rapid heart rate and Denies dyspnea on exertion Resp Denies chest congestion, Denies cough, Denies pain with cough and Denies dyspnea on exertion GI Denies abdominal pain, Denies hematochezia and Denies change in bowel habits Musc Denies myalgias, Denies arthralgias and Denies joint swelling Skin/Breast Denies lesions and Denies unusual bruising Neuro Denies vertigo, Denies dizziness, Denies headache(s) and Denies focal weakness Endo Denies fatigue Physical exam (Primary Care) Vital Signs: Last Vital Signs Pulse 95 05/28/23 12:37 BP 152/90 H 05/28/23 12:37 Pulse Ox 98 05/28/23 12:37 Oxygen Delivery Method Room Air 05/28/23 12:37 BMI result Body Mass Index 29.7 Tobacco/Smoking Status: Tobacco use Status Tobacco use date assessed 03/06/23 05/28/23 12:38 Patient Tobacco Use Status Never used Tobacco 05/28/23 12:38 e-Cigarette/Vaping Use Never Used 05/28/23 12:38 PHQ-9: PHQ-9 Score PHQ-9: Total score 0 05/28/23 12:38 Depression Screening Interpretation: Negative Thrive Assessment: Date of Thrive Assessment Date Thrive assessed 11/17/22 05/28/23 12:38 Const General: cooperative, healthy appearing and no acute distress Orientation/consciousness: oriented to person, oriented to place and oriented to time HENPA Head: Yes normal to inspection, Yes normocephalic and Yes atraumatic Mouth: Normal oral and palatal mucosa present and tongue normal Throat: Yes posterior oropharynx normal and Yes uvula midline Eyes General: appearance normal, both eyes and all related structures Neck Neck: Yes normal visual inspection, Yes full ROM and Yes no lymphadenopathy Thyroid: Thyroid normal Carotids: normal carotid upstroke Chest Chest palpation & inspection: normal inspection of the chest Resp Effort & Inspection: normal respiratory effort and able to speak in complete sentences Auscultation: clear to auscultation bilaterally Cardio Jugular venous distension: no JVD Palpation: normal PMI Rate: regular rate Rhythm: regular rhythm Heart sounds: S1 normal heart sound present and S2 normal heart sound present GI Inspection: Yes normal to inspection Palpation (GI): Soft to palpation and No hepatosplenomegaly present Auscultation: normal bowel sounds General: Yes no CVA tenderness Back/Spine/Pelvis Back: no CVA tenderness Skin General skin exam: no rashes or lesions noted Neuro General: oriented to person, oriented to place and oriented to time Extrem General: Yes normal to inspection and Yes full ROM Assessment and Plan Assessment & Plan (1) Physical exam: Code(s): Z00.00 - Encounter for general adult medical examination without abnormal findings Plan: stable (2) Back pain: Code(s): M54.9 - Dorsalgia, unspecified Plan: add muscle relaxer for now; cont other rx (3) Hyperglycemia: Code(s): R73.9 - Hyperglycemia, unspecified Plan: recheck A1C Orders: Orders Glucose Fasting Today R73.9 - Hyperglycemia, unspecified Hemoglobin A1c Today R73.9 - Hyperglycemia, unspecified Medications: New cyclobenzaprine 10 mg PO TID PRN 30 tabs 2RF muscle spasm Refilled oxycodone 5 mg PO Q6H 28 days PRN 112 tabs 0RF pain Coding Level of Care Code Est Pt Prev Care 40-64y(49005) Diagnoses Physical exam Z00.00 Back pain M54.9 Hyperglycemia R73.9
[2023-05-28 12:37] VITALS: BP 152/90; PULSE 95; O2SAT 98; BMI 29.7
== END 2023-05-28 13:08 | disposition home or self-care (01) ==
PROVIDERS: PCP Internal Medicine; Visit Provider Internal Medicine
DX: Z00.00 Encounter for general adult medical examination without abnormal findings (principal); M54.9 Dorsalgia, unspecified; R73.9 Hyperglycemia, unspecified
CPT/HCPCS: 99396

== ENCOUNTER 2023-06-11 11:08 | Outpatient (AMB) | payer OTHER, BC, SELFPAY ==
[2023-06-11 11:18] VITALS: BP 162/90; PULSE 90; O2SAT 98; BMI 30.1
--- NOTE | 2023-06-11 11:18 | A.OFFPC_ITS ---
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 per policy Accompanied by: Self / Same As Patient Allergies No Known Allergies Allergy (Verified 06/11/23 11:19) Medication List - Last Reconciled 06/11/23 by Juaquin Martin MD cyclobenzaprine 10 mg PO TID PRN lidocaine 4% (AsperFlex (lidocaine)) 1 patch topical DAILY PRN loratadine (Allergy Relief (loratadine)) 10 mg PO DAILY PRN naproxen 500 mg PO BID PRN oxycodone 5 mg PO Q6H PRN 28 days prednisone 40 mg (2 x 20 mg) PO DAILY 5 days sildenafil 50 mg PO DAILY PRN Tobacco use date assessed: 03/06/23 Dental Screening Dental Screen Date: 06/11/23 Did you have a dental visit in the last 12 months?: Yes Did you have a dental problem in the last 6 months where you did not have access to dental care?: No Was dental information given to patient?: Patient has dentist HPI Back Pain F/U HPI Details back pain for a week; left lumbar PFSH Medical History Back pain Surgical History History of vasectomy Family History Father Heart disease Mother Diabetes Brother No problems noted. Sister No problems noted. Daughter No problems noted. Daughter No problems noted. Social History Housing: House Alcohol intake: current Alcohol intake frequency: a few times a week Alcohol type: beer Patient Tobacco Use Status: Never used Tobacco e-Cigarette/Vaping Use: Never Used Second Hand Smoke Exposure: Yes service: No Current occupational status: employed Current occupational exposures/hazards: No Cognitive needs: No Hearing needs: No Vision needs: No Questionnaire Thrive Questionnaire Date Thrive assessed: 11/17/22 SUZANNE-7 AMB Questionnaire SUZANNE-7 Date SUZANNE - 7 assessed: 11/17/22 Source: Developed by Drs. Scot Ruiz, Jessica Shelton, Michael Martinez and colleagues, with an educational tito from [employer] Review of Systems Const Denies chills, Denies headache(s) and Denies weight loss ENT Denies headache(s) Card Denies chest pain, Denies syncope, Denies irregular heart rhythm and Denies dyspnea Resp Denies chest congestion, Denies cough and Denies dyspnea GI Denies abdominal pain, Denies change in stool character, Denies nausea and Denies vomiting Musc Denies deformity and Denies joint swelling Neuro Denies syncope and Denies headache(s) Physical exam (Primary Care) Vital Signs: Last Vital Signs Pulse 90 06/11/23 11:18 BP 162/90 H 06/11/23 11:18 Pulse Ox 98 06/11/23 11:18 Oxygen Delivery Method Room Air 06/11/23 11:18 BMI result Body Mass Index 30.1 Tobacco/Smoking Status: Tobacco use Status Tobacco use date assessed 03/06/23 06/11/23 11:22 Patient Tobacco Use Status Never used Tobacco 06/11/23 11:22 e-Cigarette/Vaping Use Never Used 06/11/23 11:22 Thrive Assessment: Date of Thrive Assessment Date Thrive assessed 11/17/22 06/11/23 11:22 Const General: cooperative, comfortable, no acute distress and alert Neck Neck: Yes no lymphadenopathy Thyroid: Thyroid normal Resp Effort & Inspection: normal respiratory effort Auscultation: clear to auscultation bilaterally Percussion: percussion normal Cardio Jugular venous distension: no JVD Palpation: normal PMI Rate: regular rate Rhythm: regular rhythm Heart sounds: S1 normal heart sound present and S2 normal heart sound present GI Inspection: Yes normal to inspection Palpation (GI): No hepatosplenomegaly present Skin General skin exam: no rashes or lesions noted Extrem General: Yes no clubbing, cyanosis or edema Assessment and Plan Assessment & Plan (1) Lower back pain: Code(s): M54.50 - Low back pain, unspecified Plan: pt and pssp ref Orders: Orders PT Evaluation and Treatment Today M54.50 - Low back pain, unspecified Referrals Pain Management Referral M54.50 - Low back pain, unspecified Coding Level of Care Code Est Pt Level 3 (69546) Diagnoses Lower back pain M54.50
== END 2023-06-11 11:32 | disposition home or self-care (01) ==
PROVIDERS: PCP Internal Medicine; Visit Provider Internal Medicine
DX: M54.50 Low back pain, unspecified (principal)
CPT/HCPCS: 99213

== ENCOUNTER 2023-06-25 09:23 | Outpatient (AMB) | payer BC, SELFPAY ==
[2023-06-25 09:25] VITALS: BP 160/90; PULSE 85; O2SAT 98; BMI 29.7
--- NOTE | 2023-06-25 09:25 | A.OFFPC_ITS ---
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: Not Required per policy Accompanied by: Self / Same As Patient Allergies No Known Allergies Allergy (Verified 06/25/23 09:25) Medication List - Last Reconciled 06/25/23 by Juaquin Martin MD cyclobenzaprine 10 mg PO TID PRN lidocaine 4% (AsperFlex (lidocaine)) 1 patch topical DAILY PRN loratadine (Allergy Relief (loratadine)) 10 mg PO DAILY PRN naproxen 500 mg PO BID PRN oxycodone 5 mg PO Q6H PRN 28 days prednisone 40 mg (2 x 20 mg) PO DAILY 5 days sildenafil 50 mg PO DAILY PRN Tobacco use date assessed: 03/06/23 Dental Screening Dental Screen Date: 06/25/23 Did you have a dental visit in the last 12 months?: Yes Did you have a dental problem in the last 6 months where you did not have access to dental care?: No Was dental information given to patient?: Patient has dentist HPI 4 week f/u HPI Details f/u chronic back pain; doing well on rx PFSH Medical History Back pain Surgical History History of vasectomy Family History Father Heart disease Mother Diabetes Brother No problems noted. Sister No problems noted. Daughter No problems noted. Daughter No problems noted. Social History Housing: House Alcohol intake: current Alcohol intake frequency: a few times a week Alcohol type: beer Patient Tobacco Use Status: Never used Tobacco e-Cigarette/Vaping Use: Never Used Second Hand Smoke Exposure: Yes service: No Current occupational status: employed Current occupational exposures/hazards: No Cognitive needs: No Hearing needs: No Vision needs: No Questionnaire Thrive Questionnaire Date Thrive assessed: 11/17/22 SUZANNE-7 AMB Questionnaire SUZANNE-7 Date SUZANNE - 7 assessed: 11/17/22 Source: Developed by Drs. Scot Ruiz, Jessica Shelton, Michael Martinez and colleagues, with an educational tito from [email or web address]. Review of Systems Const Denies chills, Denies headache(s) and Denies weight loss ENT Denies headache(s) Card Denies chest pain, Denies syncope, Denies irregular heart rhythm and Denies dyspnea Resp Denies chest congestion, Denies cough and Denies dyspnea GI Denies abdominal pain, Denies change in stool character, Denies nausea and Denies vomiting Musc Denies deformity and Denies joint swelling Neuro Denies syncope and Denies headache(s) Physical exam (Primary Care) Vital Signs: Last Vital Signs Pulse 85 06/25/23 09:25 BP 160/90 H 06/25/23 09:25 Pulse Ox 98 06/25/23 09:25 Oxygen Delivery Method Room Air 06/25/23 09:25 BMI result Body Mass Index 29.7 Tobacco/Smoking Status: Tobacco use Status Tobacco use date assessed 03/06/23 06/25/23 09:26 Patient Tobacco Use Status Never used Tobacco 06/25/23 09:26 e-Cigarette/Vaping Use Never Used 06/25/23 09:26 Thrive Assessment: Date of Thrive Assessment Date Thrive assessed 11/17/22 06/25/23 09:26 Const General: cooperative, comfortable, no acute distress and alert Neck Neck: Yes no lymphadenopathy Thyroid: Thyroid normal Resp Effort & Inspection: normal respiratory effort Auscultation: clear to auscultation bilaterally Percussion: percussion normal Cardio Jugular venous distension: no JVD Palpation: normal PMI Rate: regular rate Rhythm: regular rhythm Heart sounds: S1 normal heart sound present and S2 normal heart sound present GI Inspection: Yes normal to inspection Palpation (GI): No hepatosplenomegaly present Skin General skin exam: no rashes or lesions noted Extrem General: Yes no clubbing, cyanosis or edema Assessment and Plan Assessment & Plan (1) Low Back Pain: Code(s): M54.50 - Low back pain, unspecified Plan: stable; same rx Medications: Refilled oxycodone 5 mg PO Q6H PRN 112 tabs 0RF pain 28 days Coding Level of Care Code Est Pt Level 3 (83950) Diagnoses Low Back Pain M54.50
== END 2023-06-25 09:40 | disposition home or self-care (01) ==
PROVIDERS: PCP Internal Medicine; Visit Provider Internal Medicine
DX: M54.50 Low back pain, unspecified (principal)
CPT/HCPCS: 99213

== ENCOUNTER 2023-07-23 13:04 | Outpatient (AMB) | payer BC, SELFPAY ==
[2023-07-23 13:07] VITALS: BP 160/90; PULSE 90; O2SAT 100; BMI 30.4
--- NOTE | 2023-07-23 13:07 | A.OFFPC_ITS ---
Vital Signs 07/23/23 13:07 Height 5 ft 11 in Weight 218 lb BMI 30.4 BP 160/90 H Blood Pressure Location Lt brachial Position Sitting Pulse 90 Pulse Source Pulse Oximeter Pulse Oximetry (%) 100 Oxygen Delivery Method Room Air Intake Visit Reasons: Med F/U Neurosurgical Nurse Practitioner Required: No Licensing Manager: Not Required per policy Accompanied by: Self / Same As Patient Allergies No Known Allergies Allergy (Verified 07/23/23 13:07) Medication List - Last Reconciled 07/23/23 by Juaquin Martin MD cyclobenzaprine 10 mg PO TID PRN lidocaine 4% (AsperFlex (lidocaine)) 1 patch topical DAILY PRN loratadine (Allergy Relief (loratadine)) 10 mg PO DAILY PRN naproxen 500 mg PO BID PRN oxycodone 5 mg PO Q6H PRN 28 days prednisone 40 mg (2 x 20 mg) PO DAILY 5 days sildenafil 50 mg PO DAILY PRN Tobacco use date assessed: 07/23/23 Dental Screening Dental Screen Date: 07/23/23 Did you have a dental visit in the last 12 months?: Yes Did you have a dental problem in the last 6 months where you did not have access to dental care?: No Was dental information given to patient?: Patient has dentist HPI Med F/U HPI Details chronic back pain on rx; stable and compliant [facility] Medical History Back pain Surgical History History of vasectomy Family History Father Heart disease Mother Diabetes Brother No problems noted. Sister No problems noted. Daughter No problems noted. Daughter No problems noted. Social History Housing: House Alcohol intake: current Alcohol intake frequency: a few times a week Alcohol type: beer Patient Tobacco Use Status: Never used Tobacco e-Cigarette/Vaping Use: Never Used Second Hand Smoke Exposure: Yes service: No Current occupational status: employed Current occupational exposures/hazards: No Cognitive needs: No Hearing needs: No Vision needs: No Questionnaire PHQ-9 Over the last 2 weeks, how often have you been bothered by any of the following problems? 1. Little interest or pleasure in doing things: not at all 2. Feeling down, depressed, or hopeless: not at all 3. Trouble falling or staying asleep, or sleeping too much: not at all 4. Feeling tired or having little energy: not at all 5. Poor appetite or overeating: not at all 6. Feeling bad about yourself - or that you are a failure or have let yourself or your family down: not at all 7. Trouble concentrating on things, such as reading the newspaper or watching television: not at all 8. Moving or speaking so slowly that other people could have noticed. Or the opposite - being so fidgety or restless that you have been moving around a lot more than usual: not at all 9. Thoughts that you would be better off or of hurting yourself in some way: not at all Total score: 0 Depression Screening Interpretation: Negative Depression Screening Done: Yes 50195 - PHQ-9 Billing: Yes Source: Developed by Drs. Scot Ruiz, Jessica Shelton, Michael Martinez and colleagues, with an educational tito from [employer] Thrive Questionnaire Date Thrive assessed: 07/23/23 I am a: Patient What is your living situation today?: I have a steady place to live Within the past 12 months, did the food you bought not last and you didn't have the money to get more?: Never true Within the past 12 months, did you worry whether your food would run out before you got money to buy more?: Never true Do you have trouble paying for medicines?: No Do you have trouble getting transportation to medical appointments?: No Do you have trouble paying your heating and electricity bill?: No Do you have trouble taking care of your child, family member or friend?: No Do you have trouble with day-to-day activities such as bathing, preparing meals, shopping, managing finances, etc.?: No Are you currently unemployed and looking for a job?: No Are you interested in more education?: No Please select the resources that you would like help with: None AUDIT C Alcohol Use Questionnaire (AUDIT-C) 1. How often do you have a drink containing alcohol?: 4 or more times a week 2. How many drinks containing alcohol do you have on a typical day when you are drinking?: 1 or 2 3. How often do you have six or more drinks on one occasion?: Never Total Score: 4 Score Reviewed/Action Taken: Yes SUZANNE-7 AMB Questionnaire SUZANNE-7 Date SUZANNE - 7 assessed: 07/23/23 Feeling nervous, anxious, or on edge: 0 = Not at all Not being able to stop or control worryin = Not at all Worrying too much about different things: 0 = Not at all Trouble relaxin = Not at all Being so restless that it is hard to sit still: 0 = Not at all Becoming easily annoyed or irritable: 0 = Not at all Feeling afraid as if something awful might happen: 0 = Not at all Total SUZANNE-7 score (0-4 normal; 5-9 mild; 10-14 moderate; 15-21 severe): 0 Source: Developed by Drs. Scot Ruiz, Jessica Shelton, Michael Martinez and colleagues, with an educational tito from [employer] SUZANNE-7 Assessment Billing SUZANNE-7 Assessment Tool: SUZANNE-7 Assessment [id number] Review of Systems Const Denies chills, Denies headache(s) and Denies weight loss ENT Denies headache(s) Card Denies chest pain, Denies syncope, Denies irregular heart rhythm and Denies dyspnea Resp Denies chest congestion, Denies cough and Denies dyspnea GI Denies abdominal pain, Denies change in stool character, Denies nausea and Denies vomiting Musc Denies deformity and Denies joint swelling Neuro Denies syncope and Denies headache(s) Physical exam (Primary Care) Vital Signs: Last Vital Signs Pulse 90 07/23/23 13:07 BP 160/90 H 07/23/23 13:07 Pulse Ox 100 07/23/23 13:07 Oxygen Delivery Method Room Air 07/23/23 13:07 BMI result Body Mass Index 30.4 Tobacco/Smoking Status: Tobacco use Status Tobacco use date assessed 07/23/23 07/23/23 13:08 Patient Tobacco Use Status Never used Tobacco 07/23/23 13:08 e-Cigarette/Vaping Use Never Used 07/23/23 13:08 PHQ-9: PHQ-9 Score PHQ-9: Total score 0 07/23/23 13:08 Depression Screening Interpretation: Negative Thrive Assessment: Date of Thrive Assessment Date Thrive assessed 07/23/23 07/23/23 13:08 Const General: cooperative, comfortable, no acute distress and alert Neck Neck: Yes no lymphadenopathy Thyroid: Thyroid normal Resp Effort & Inspection: normal respiratory effort Auscultation: clear to auscultation bilaterally Percussion: percussion normal Cardio Jugular venous distension: no JVD Palpation: normal PMI Rate: regular rate Rhythm: regular rhythm Heart sounds: S1 normal heart sound present and S2 normal heart sound present GI Inspection: Yes normal to inspection Palpation (GI): No hepatosplenomegaly present Skin General skin exam: no rashes or lesions noted Extrem General: Yes no clubbing, cyanosis or edema Assessment and Plan Assessment & Plan (1) Low Back Pain: Code(s): M54.50 - Low back pain, unspecified Plan: stable; same rx Medications: Refilled oxycodone 5 mg PO Q6H PRN 112 tabs 0RF pain 28 days cyclobenzaprine 10 mg PO TID PRN 30 tabs 2RF muscle spasm Coding Level of Care Code Est Pt Level 3 (28426) Diagnoses Low Back Pain M54.50 Additional Codes SUZANNE-7 Assessment Billing - SUZANNE-7 Assessment Tool: SUZANNE-7 Assessment [id number] ([id number])
== END 2023-07-23 14:37 | disposition home or self-care (01) ==
PROVIDERS: PCP Internal Medicine; Visit Provider Internal Medicine
DX: M54.50 Low back pain, unspecified (principal)
CPT/HCPCS: 99213

== ENCOUNTER 2023-08-20 13:48 | Outpatient (AMB) | payer BC, SELFPAY ==
[2023-08-20 13:59] VITALS: BP 148/88; PULSE 75; O2SAT 98
--- NOTE | 2023-08-20 13:59 | MHC.PC.OV ---
Vital Signs 08/20/23 13:59 Height 5 ft 11 in Weight 215 lb BMI 30.0 BP 148/88 H Blood Pressure Location Lt brachial Position Sitting Pulse 75 Pulse Source Pulse Oximeter Pulse Oximetry (%) 98 Oxygen Delivery Method Room Air Intake Visit Reasons: medication follow up Industrial Machine Assembler Required: No Nailing Machine Feeder: Not Required per policy Accompanied by: Self / Same As Patient Allergies No Known Allergies Allergy (Verified 08/20/23 14:00) Tobacco use date assessed: 07/23/23 Dental Screening Dental Screen Date: 08/20/23 Did you have a dental visit in the last 12 months?: Yes Did you have a dental problem in the last 6 months where you did not have access to dental care?: No Was dental information given to patient?: Patient has dentist HPI medication follow up HPI Details chronic back pain on rx; doing well [facility] Medical History Back pain Surgical History History of vasectomy Family History Father Heart disease Mother Diabetes Brother No problems noted. Sister No problems noted. Daughter No problems noted. Daughter No problems noted. Social History Housing: House Alcohol intake: current Alcohol intake frequency: a few times a week Alcohol type: beer Patient Tobacco Use Status: Never used Tobacco e-Cigarette/Vaping Use: Never Used Second Hand Smoke Exposure: Yes service: No Current occupational status: employed Current occupational exposures/hazards: No Cognitive needs: No Hearing needs: No Vision needs: No Questionnaire Thrive Questionnaire Date Thrive assessed: 07/23/23 SUZANNE-7 AMB Questionnaire SUZANNE-7 Date SUZANNE - 7 assessed: 07/23/23 Source: Developed by Drs. Scot Ruiz, Jessica Shelton, Michale Martinez and colleagues, with an educational tito from [employer]. Review of Systems Const Denies chills, Denies headache(s) and Denies weight loss ENT Denies headache(s) Card Denies chest pain, Denies syncope, Denies irregular heart rhythm and Denies dyspnea Resp Denies chest congestion, Denies cough and Denies dyspnea GI Denies abdominal pain, Denies change in stool character, Denies nausea and Denies vomiting Musc Denies deformity and Denies joint swelling Neuro Denies syncope and Denies headache(s) Physical exam (Primary Care) Vital Signs: Last Vital Signs Pulse 75 08/20/23 13:59 BP 148/88 H 08/20/23 13:59 Pulse Ox 98 08/20/23 13:59 Oxygen Delivery Method Room Air 08/20/23 13:59 BMI result Body Mass Index 30.0 Tobacco/Smoking Status: Tobacco use Status Tobacco use date assessed 07/23/23 08/20/23 14:00 Patient Tobacco Use Status Never used Tobacco 08/20/23 14:00 e-Cigarette/Vaping Use Never Used 08/20/23 14:00 Thrive Assessment: Date of Thrive Assessment Date Thrive assessed 07/23/23 08/20/23 14:00 Const General: cooperative, comfortable, no acute distress and alert Neck Neck: Yes no lymphadenopathy Thyroid: Thyroid normal Resp Effort & Inspection: normal respiratory effort Auscultation: clear to auscultation bilaterally Percussion: percussion normal Cardio Jugular venous distension: no JVD Palpation: normal PMI Rate: regular rate Rhythm: regular rhythm Heart sounds: S1 normal heart sound present and S2 normal heart sound present GI Inspection: Yes normal to inspection Palpation (GI): No hepatosplenomegaly present Skin General skin exam: no rashes or lesions noted Extrem General: Yes no clubbing, cyanosis or edema Assessment and Plan Assessment & Plan (1) Low Back Pain: Code(s): M54.50 - Low back pain, unspecified Plan: stable; same rx Medications: New azithromycin take 500 mg today (day 1), then 250 mg for 4 days (days 2-5) PO 6 tabs 0RF Refilled oxycodone 5 mg PO Q6H PRN 112 tabs 0RF pain 28 days Coding Level of Care Code Est Pt Level 3 (31785) Diagnoses Low Back Pain M54.50
== END 2023-08-20 16:00 | disposition home or self-care (01) ==
PROVIDERS: PCP Internal Medicine; Visit Provider Internal Medicine
DX: M54.50 Low back pain, unspecified (principal)
CPT/HCPCS: 99213

== ENCOUNTER 2023-09-17 10:32 | Outpatient (AMB) | payer BC, SELFPAY ==
[2023-09-17 10:35] VITALS: BP 144/82; PULSE 70; O2SAT 99; BMI 30.1
--- NOTE | 2023-09-17 10:35 | A.OFFPC_ITS ---
Vital Signs 09/17/23 10:35 Height 5 ft 11 in Weight 216 lb BMI 30.1 BP 144/82 H Blood Pressure Location Lt brachial Position Sitting Pulse 70 Pulse Source Pulse Oximeter Pulse Oximetry (%) 99 Oxygen Delivery Method Room Air Intake Visit Reasons: medication follow up Civil Engineering Designer Required: No Coil Former: Not Required per policy Accompanied by: Self / Same As Patient Allergies No Known Allergies Allergy (Verified 09/17/23 10:35) Medication List - Last Reconciled 09/17/23 by Juaquin Martin MD azithromycin take 500 mg today (day 1), then 250 mg for 4 days (days 2-5) PO cyclobenzaprine 10 mg PO TID PRN lidocaine 4% (AsperFlex (lidocaine)) 1 patch topical DAILY PRN lisinopril 20 mg PO DAILY loratadine (Allergy Relief (loratadine)) 10 mg PO DAILY PRN naproxen 500 mg PO BID PRN oxycodone 5 mg PO Q6H PRN 28 days prednisone 40 mg (2 x 20 mg) PO DAILY 5 days sildenafil 50 mg PO DAILY PRN Tobacco use date assessed: 07/23/23 HPI medication follow up HPI Details f/u chronic low back pain; doing well on regimen; compliant [facility] Medical History Back pain Surgical History History of vasectomy Family History Father Heart disease Mother Diabetes Brother No problems noted. Sister No problems noted. Daughter No problems noted. Daughter No problems noted. Social History Housing: House Alcohol intake: current Alcohol intake frequency: a few times a week Alcohol type: beer Patient Tobacco Use Status: Never used Tobacco e-Cigarette/Vaping Use: Never Used Second Hand Smoke Exposure: Yes service: No Current occupational status: employed Current occupational exposures/hazards: No Cognitive needs: No Hearing needs: No Vision needs: No Questionnaire Thrive Questionnaire Date Thrive assessed: 07/23/23 SUZANNE-7 AMB Questionnaire SUZANNE-7 Date SUZANNE - 7 assessed: 07/23/23 Source: Developed by Drs. Scot Ruiz, Jessica Shelton, Michael Martinez and colleagues, with an educational tito from [employer] Review of Systems Const Denies chills, Denies headache(s) and Denies weight loss ENT Denies headache(s) Card Denies chest pain, Denies syncope, Denies irregular heart rhythm and Denies dyspnea Resp Denies chest congestion, Denies cough and Denies dyspnea GI Denies abdominal pain, Denies change in stool character, Denies nausea and Denies vomiting Musc Denies deformity and Denies joint swelling Neuro Denies syncope and Denies headache(s) Physical exam (Primary Care) Vital Signs: Last Vital Signs Pulse 70 09/17/23 10:35 BP 144/82 H 09/17/23 10:35 Pulse Ox 99 09/17/23 10:35 Oxygen Delivery Method Room Air 09/17/23 10:35 BMI result Body Mass Index 30.1 Tobacco/Smoking Status: Tobacco use Status Tobacco use date assessed 07/23/23 09/17/23 10:36 Patient Tobacco Use Status Never used Tobacco 09/17/23 10:36 e-Cigarette/Vaping Use Never Used 09/17/23 10:36 Thrive Assessment: Date of Thrive Assessment Date Thrive assessed 07/23/23 09/17/23 10:36 Const General: cooperative, comfortable, no acute distress and alert Neck Neck: Yes no lymphadenopathy Thyroid: Thyroid normal Resp Effort & Inspection: normal respiratory effort Auscultation: clear to auscultation bilaterally Percussion: percussion normal Cardio Jugular venous distension: no JVD Palpation: normal PMI Rate: regular rate Rhythm: regular rhythm Heart sounds: S1 normal heart sound present and S2 normal heart sound present GI Inspection: Yes normal to inspection Palpation (GI): No hepatosplenomegaly present Skin General skin exam: no rashes or lesions noted Extrem General: Yes no clubbing, cyanosis or edema Assessment and Plan Assessment & Plan (1) Low Back Pain: Code(s): M54.50 - Low back pain, unspecified Plan: stable; same rx Medications: Refilled cyclobenzaprine 10 mg PO TID PRN 30 tabs 2RF muscle spasm oxycodone 5 mg PO Q6H PRN 112 tabs 0RF pain 28 days Coding Level of Care Code Est Pt Level 3 (98898) Diagnoses Low Back Pain M54.50
== END 2023-09-17 10:56 | disposition home or self-care (01) ==
PROVIDERS: PCP Internal Medicine; Visit Provider Internal Medicine
DX: M54.50 Low back pain, unspecified (principal)
CPT/HCPCS: 99213

== ENCOUNTER 2023-10-15 10:13 | Outpatient (AMB) | payer BC, SELFPAY ==
[2023-10-15 10:18] VITALS: BP 158/86; PULSE 73; O2SAT 96; BMI 29.2
--- NOTE | 2023-10-15 10:18 | MHC.PC.OV ---
Vital Signs 10/15/23 10:18 Height 5 ft 11 in Weight 209 lb 0.6 oz BMI 29.2 BP 158/86 H Blood Pressure Location Lt brachial Position Sitting Pulse 73 Pulse Source Pulse Oximeter Pulse Oximetry (%) 96 Oxygen Delivery Method Room Air Intake Visit Reasons: 4 week f/u Intake Note: Patient is here to follow up on 4 weeks Shipping Services Sales Representative Required: No Allergies No Known Allergies Allergy (Verified 10/15/23 10:18) Tobacco use date assessed: 10/15/23 Dental Screening Dental Screen Date: 08/20/23 HPI 4 week f/u HPI Details chronic back pain on rx; doing well on regimen; compliant [facility] Medical History Back pain Surgical History History of vasectomy Family History Father Heart disease Mother Diabetes Brother No problems noted. Sister No problems noted. Daughter No problems noted. Daughter No problems noted. Social History Housing: House Alcohol intake: current Alcohol intake frequency: a few times a week Alcohol type: beer Patient Tobacco Use Status: Never used Tobacco e-Cigarette/Vaping Use: Never Used Second Hand Smoke Exposure: Yes service: No Current occupational status: employed Current occupational exposures/hazards: No Cognitive needs: No Hearing needs: No Vision needs: No Questionnaire Thrive Questionnaire Date Thrive assessed: 07/23/23 AUDIT C Alcohol Use Questionnaire (AUDIT-C) 1. How often do you have a drink containing alcohol?: 4 or more times a week 2. How many drinks containing alcohol do you have on a typical day when you are drinking?: 1 or 2 3. How often do you have six or more drinks on one occasion?: Never Total Score: 4 Score Reviewed/Action Taken: Yes SUZANNE-7 AMB Questionnaire SUZANNE-7 Date SUZANNE - 7 assessed: 07/23/23 Source: Developed by Drs. Scot Ruiz, Jessica Shelton, Michael Martinez and colleagues, with an educational tito from [employer]. Review of Systems Const Denies chills, Denies headache(s) and Denies weight loss ENT Denies headache(s) Card Denies chest pain, Denies syncope, Denies irregular heart rhythm and Denies dyspnea Resp Denies chest congestion, Denies cough and Denies dyspnea GI Denies abdominal pain, Denies change in stool character, Denies nausea and Denies vomiting Musc Denies deformity and Denies joint swelling Neuro Denies syncope and Denies headache(s) Physical exam (Primary Care) Vital Signs: Last Vital Signs Pulse 73 10/15/23 10:18 BP 158/86 H 10/15/23 10:18 Pulse Ox 96 10/15/23 10:18 Oxygen Delivery Method Room Air 10/15/23 10:18 BMI result Body Mass Index 29.2 Tobacco/Smoking Status: Tobacco use Status Tobacco use date assessed 10/15/23 10/15/23 10:18 Patient Tobacco Use Status Never used Tobacco 10/15/23 10:18 e-Cigarette/Vaping Use Never Used 10/15/23 10:18 Thrive Assessment: Date of Thrive Assessment Date Thrive assessed 07/23/23 10/15/23 10:18 Const General: cooperative, comfortable, no acute distress and alert Neck Neck: Yes no lymphadenopathy Thyroid: Thyroid normal Resp Effort & Inspection: normal respiratory effort Auscultation: clear to auscultation bilaterally Percussion: percussion normal Cardio Jugular venous distension: no JVD Palpation: normal PMI Rate: regular rate Rhythm: regular rhythm Heart sounds: S1 normal heart sound present and S2 normal heart sound present GI Inspection: Yes normal to inspection Palpation (GI): No hepatosplenomegaly present Skin General skin exam: no rashes or lesions noted Extrem General: Yes no clubbing, cyanosis or edema Assessment and Plan Assessment & Plan (1) Low Back Pain: Code(s): M54.50 - Low back pain, unspecified Plan: stable; same rx Medications: New amlodipine 10 mg PO DAILY 90 tabs 3RF Refilled oxycodone 5 mg PO Q6H 28 days PRN 112 tabs 0RF pain Discontinued lisinopril Discontinued Reason: None 20 mg PO DAILY 90 tabs 3RF Coding Level of Care Code Est Pt Level 3 (23765) Diagnoses Low Back Pain M54.50
== END 2023-10-15 10:41 | disposition home or self-care (01) ==
PROVIDERS: PCP Internal Medicine; Visit Provider Internal Medicine
DX: M54.50 Low back pain, unspecified (principal)
CPT/HCPCS: 99213

== ENCOUNTER 2023-11-12 10:33 | Outpatient (AMB) | payer BC, SELFPAY ==
[2023-11-12 10:45] VITALS: BP 142/78; RESP 88; O2SAT 98
--- NOTE | 2023-11-12 10:45 | A.OFFPC_ITS ---
Vital Signs 11/12/23 10:45 Height 5 ft 11 in Weight 215 lb BMI 30.0 BP 142/78 H Blood Pressure Location Lt brachial Position Sitting Respiration 88 H Pulse Source Pulse Oximeter Pulse Oximetry (%) 98 Oxygen Delivery Method Room Air Intake Visit Reasons: 4wkf\u Allergies No Known Allergies Allergy (Verified 10/15/23 10:18) Tobacco use date assessed: 10/15/23 Dental Screening Dental Screen Date: 08/20/23 HPI 4wkf\u HPI Details f/u chronic back pain; doing well on current regimen PFSH Medical History Back pain Surgical History History of vasectomy Family History Father Heart disease Mother Diabetes Brother No problems noted. Sister No problems noted. Daughter No problems noted. Daughter No problems noted. Social History Housing: House Alcohol intake: current Alcohol intake frequency: a few times a week Alcohol type: beer Patient Tobacco Use Status: Never used Tobacco e-Cigarette/Vaping Use: Never Used Second Hand Smoke Exposure: Yes service: No Current occupational status: employed Current occupational exposures/hazards: No Cognitive needs: No Hearing needs: No Vision needs: No Questionnaire Thrive Questionnaire Date Thrive assessed: 07/23/23 SUZANNE-7 AMB Questionnaire SUZANNE-7 Date SUZANNE - 7 assessed: 07/23/23 Source: Developed by Drs. Scot Ruiz, Jessica Shelton, Michael Martinez and colleagues, with an educational tito from [employer]. Review of Systems Const Denies chills, Denies headache(s) and Denies weight loss ENT Denies headache(s) Card Denies chest pain, Denies syncope, Denies irregular heart rhythm and Denies dyspnea Resp Denies chest congestion, Denies cough and Denies dyspnea GI Denies abdominal pain, Denies change in stool character, Denies nausea and Denies vomiting Musc Denies deformity and Denies joint swelling Neuro Denies syncope and Denies headache(s) Physical exam (Primary Care) Vital Signs: Last Vital Signs Resp 88 H 11/12/23 10:45 BP 142/78 H 11/12/23 10:45 Pulse Ox 98 11/12/23 10:45 Oxygen Delivery Method Room Air 11/12/23 10:45 BMI result Body Mass Index 30.0 Tobacco/Smoking Status: Tobacco use Status Tobacco use date assessed 10/15/23 11/12/23 10:49 Patient Tobacco Use Status Never used Tobacco 11/12/23 10:49 e-Cigarette/Vaping Use Never Used 11/12/23 10:49 Thrive Assessment: Date of Thrive Assessment Date Thrive assessed 07/23/23 11/12/23 10:49 Const General: cooperative, comfortable, no acute distress and alert Neck Neck: Yes no lymphadenopathy Thyroid: Thyroid normal Resp Effort & Inspection: normal respiratory effort Auscultation: clear to auscultation bilaterally Percussion: percussion normal Cardio Jugular venous distension: no JVD Palpation: normal PMI Rate: regular rate Rhythm: regular rhythm Heart sounds: S1 normal heart sound present and S2 normal heart sound present GI Inspection: Yes normal to inspection Palpation (GI): No hepatosplenomegaly present Skin General skin exam: no rashes or lesions noted Extrem General: Yes no clubbing, cyanosis or edema Assessment and Plan Assessment & Plan (1) Back pain: Code(s): M54.9 - Dorsalgia, unspecified Medications: Refilled oxycodone 5 mg PO Q6H 28 days PRN 112 tabs 0RF pain Coding Level of Care Code Est Pt Level 3 (34094) Diagnoses Back pain M54.9
== END 2023-11-12 11:00 | disposition home or self-care (01) ==
PROVIDERS: PCP Internal Medicine; Visit Provider Internal Medicine
DX: M54.9 Dorsalgia, unspecified (principal)
CPT/HCPCS: 99213

== ENCOUNTER 2024-01-07 10:12 | Outpatient (AMB) | payer BC, SELFPAY ==
[2024-01-07 10:16] VITALS: BP 116/64; PULSE 65; O2SAT 98; BMI 29.4
--- NOTE | 2024-01-07 10:16 | A.OFFPC_ITS ---
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 per policy Accompanied by: Self / Same As Patient Allergies No Known Allergies Allergy (Verified 01/07/24 10:17) Medication List - Last Reconciled 01/07/24 by Juaquin Martin MD amlodipine 10 mg PO DAILY cyclobenzaprine 10 mg PO TID PRN lidocaine 4% (AsperFlex (lidocaine)) 1 patch topical DAILY PRN loratadine (Allergy Relief (loratadine)) 10 mg PO DAILY PRN oxycodone 5 mg PO Q6H PRN 28 days sildenafil 50 mg PO DAILY PRN Tobacco use date assessed: 10/15/23 Dental Screening Dental Screen Date: 08/20/23 HPI Med management HPI Details chronic back pain on rx; compliant with regimen PFSH Medical History Back pain Surgical History History of vasectomy Family History Father Heart disease Mother Diabetes Brother No problems noted. Sister No problems noted. Daughter No problems noted. Daughter No problems noted. Social History Housing: House Alcohol intake: current Alcohol intake frequency: a few times a week Alcohol type: beer Patient Tobacco Use Status: Never used Tobacco e-Cigarette/Vaping Use: Never Used Second Hand Smoke Exposure: Yes service: No Current occupational status: employed Current occupational exposures/hazards: No Cognitive needs: No Hearing needs: No Vision needs: No Questionnaire Thrive Questionnaire Date Thrive assessed: 07/23/23 SUZANNE-7 AMB Questionnaire SUZANNE-7 Date SUZANNE - 7 assessed: 07/23/23 Source: Developed by Drs. Scot Ruiz, Jessica Shelton, Michael Martinez and colleagues, with an educational tito from [employer]. Review of Systems Const Denies chills, Denies headache(s) and Denies weight loss ENT Denies headache(s) Card Denies chest pain, Denies syncope, Denies irregular heart rhythm and Denies dyspnea Resp Denies chest congestion, Denies cough and Denies dyspnea GI Denies abdominal pain, Denies change in stool character, Denies nausea and Denies vomiting Musc Denies deformity and Denies joint swelling Neuro Denies syncope and Denies headache(s) Physical exam (Primary Care) Vital Signs: Last Vital Signs Pulse 65 01/07/24 10:16 BP 116/64 01/07/24 10:16 Pulse Ox 98 01/07/24 10:16 Oxygen Delivery Method Room Air 01/07/24 10:16 BMI result Body Mass Index 29.4 Tobacco/Smoking Status: Tobacco use Status Tobacco use date assessed 10/15/23 01/07/24 10:17 Patient Tobacco Use Status Never used Tobacco 01/07/24 10:17 e-Cigarette/Vaping Use Never Used 01/07/24 10:17 Thrive Assessment: Date of Thrive Assessment Date Thrive assessed 07/23/23 01/07/24 10:17 Const General: cooperative, comfortable, no acute distress and alert Neck Neck: Yes no lymphadenopathy Thyroid: Thyroid normal Resp Effort & Inspection: normal respiratory effort Auscultation: clear to auscultation bilaterally Percussion: percussion normal Cardio Jugular venous distension: no JVD Palpation: normal PMI Rate: regular rate Rhythm: regular rhythm Heart sounds: S1 normal heart sound present and S2 normal heart sound present GI Inspection: Yes normal to inspection Palpation (GI): No hepatosplenomegaly present Skin General skin exam: no rashes or lesions noted Extrem General: Yes no clubbing, cyanosis or edema Assessment and Plan Assessment & Plan (1) Low Back Pain: Code(s): M54.50 - Low back pain, unspecified Plan: stable; same rx Medications: Refilled oxycodone 5 mg PO Q6H 28 days PRN 112 tabs 0RF pain Coding Level of Care Code Est Pt Level 3 (62768) Diagnoses Low Back Pain M54.50
== END 2024-01-07 10:39 | disposition home or self-care (01) ==
PROVIDERS: PCP Internal Medicine; Visit Provider Internal Medicine
DX: M54.50 Low back pain, unspecified (principal)
CPT/HCPCS: 99213

== ENCOUNTER 2024-02-04 13:17 | Outpatient (AMB) | payer BC, SELFPAY ==
--- NOTE | 2024-02-04 13:10 | A.OFFPC_ITS ---
Vital Signs 02/04/24 13:10 Height 5 ft 11 in Blood Pressure Location Lt brachial Position Sitting Pulse Source Pulse Oximeter Intake Visit Reasons: 4 week f/u Allergies No Known Allergies Allergy (Verified 01/07/24 10:17) Tobacco use date assessed: 10/15/23 Dental Screening Dental Screen Date: 08/20/23 HPI 4 week f/u HPI Details chronic back pain on rx; doing well and compliant [facility] Medical History Back pain Surgical History History of vasectomy Family History Father Heart disease Mother Diabetes Brother No problems noted. Sister No problems noted. Daughter No problems noted. Daughter No problems noted. Social History Housing: House Alcohol intake: current Alcohol intake frequency: a few times a week Alcohol type: beer Patient Tobacco Use Status: Never used Tobacco e-Cigarette/Vaping Use: Never Used Second Hand Smoke Exposure: Yes service: No Current occupational status: employed Current occupational exposures/hazards: No Cognitive needs: No Hearing needs: No Vision needs: No Questionnaire Thrive Questionnaire Date Thrive assessed: 07/23/23 SUZANNE-7 AMB Questionnaire SUZANNE-7 Date SUZANNE - 7 assessed: 07/23/23 Source: Developed by Drs. Scot Ruiz, Jessica Shelton, Michael Martinez and colleagues, with an educational tito from [employer]. Review of Systems Const Denies chills, Denies headache(s) and Denies weight loss ENT Denies headache(s) Card Denies chest pain, Denies syncope, Denies irregular heart rhythm and Denies dyspnea Resp Denies chest congestion, Denies cough and Denies dyspnea GI Denies abdominal pain, Denies change in stool character, Denies nausea and Denies vomiting Musc Denies deformity and Denies joint swelling Neuro Denies syncope and Denies headache(s) Physical exam (Primary Care) Tobacco/Smoking Status: Tobacco use Status Tobacco use date assessed 10/15/23 02/04/24 13:14 Patient Tobacco Use Status Never used Tobacco 02/04/24 13:14 e-Cigarette/Vaping Use Never Used 02/04/24 13:14 Thrive Assessment: Date of Thrive Assessment Date Thrive assessed 07/23/23 02/04/24 13:14 Telehealth Telehealth Telehealth Platform: Telephone Location of provider rendering services: practice address Location of patient: address on file Patient Identification confirmed using: Name, : Yes Telehealth method: voice only Patient verbally consented to treatment: Yes Patient verbally consented to billing insurance company: Yes Patient informed of any privacy concerns related to visit: Yes Minutes spent on Phone/Video with Pt.: 15 (telephone) Assessment and Plan Assessment & Plan (1) Low Back Pain: Code(s): M54.50 - Low back pain, unspecified Plan: stable; same rx Medications: Refilled oxycodone 5 mg PO Q6H 28 days PRN 112 tabs 0RF pain cyclobenzaprine 10 mg PO TID PRN 30 tabs 3RF for muscle spasm Coding Level of Care Code Tele Est Pt Level 3 (76732) Diagnoses Low Back Pain M54.50
== END 2024-02-04 15:31 | disposition home or self-care (01) ==
LOC: HO.HMGH 13:17
PROVIDERS: PCP Internal Medicine; Visit Provider Internal Medicine
DX: M54.50 Low back pain, unspecified (principal)
CPT/HCPCS: 99442

== ENCOUNTER 2024-03-03 10:13 | Outpatient (AMB) | payer BC, SELFPAY ==
[2024-03-03 10:22] VITALS: BP 142/80; PULSE 86; O2SAT 98; BMI 28.6
--- NOTE | 2024-03-03 10:22 | A.OFFPC_ITS ---
Vital Signs 03/03/24 10:22 Height 5 ft 11 in Weight 205 lb BMI 28.6 BP 142/80 H Blood Pressure Location Lt brachial Position Sitting Pulse 86 Pulse Source Pulse Oximeter Pulse Oximetry (%) 98 Oxygen Delivery Method Room Air Intake Visit Reasons: 1mth f/u Pattern Setter Required: No Accompanied by: Self / Same As Patient Allergies No Known Allergies Allergy (Verified 03/03/24 10:24) Medication List - Last Reconciled 03/03/24 by Juaquin Martin MD amlodipine 10 mg PO DAILY cyclobenzaprine 10 mg PO TID PRN lidocaine 4% (AsperFlex (lidocaine)) 1 patch topical DAILY PRN loratadine (Allergy Relief (loratadine)) 10 mg PO DAILY PRN oxycodone 5 mg PO Q6H PRN 28 days sildenafil 50 mg PO DAILY PRN Tobacco use date assessed: 10/15/23 Dental Screening Dental Screen Date: 08/20/23 HPI 1mth f/u HPI Details chronic back pain on rx; doing well and compliant [facility] Medical History Back pain Surgical History History of vasectomy Family History Father Heart disease Mother Diabetes Brother No problems noted. Sister No problems noted. Daughter No problems noted. Daughter No problems noted. Social History Housing: House Alcohol intake: current Alcohol intake frequency: a few times a week Alcohol type: beer Patient Tobacco Use Status: Never used Tobacco Tobacco use type: Cigarette e-Cigarette/Vaping Use: Never Used Second Hand Smoke Exposure: Yes service: No Current occupational status: employed Current occupational exposures/hazards: No Cognitive needs: No Hearing needs: No Vision needs: No Questionnaire PHQ-9 Over the last 2 weeks, how often have you been bothered by any of the following problems? 1. Little interest or pleasure in doing things: not at all 2. Feeling down, depressed, or hopeless: not at all 3. Trouble falling or staying asleep, or sleeping too much: not at all 4. Feeling tired or having little energy: not at all 5. Poor appetite or overeating: not at all 6. Feeling bad about yourself - or that you are a failure or have let yourself or your family down: not at all 7. Trouble concentrating on things, such as reading the newspaper or watching television: not at all 8. Moving or speaking so slowly that other people could have noticed. Or the opposite - being so fidgety or restless that you have been moving around a lot more than usual: not at all 9. Thoughts that you would be better off or of hurting yourself in some way: not at all Total score: 0 Depression Screening Interpretation: Negative Depression Screening Done: Yes 51379 - PHQ-9 Billing: Yes Source: Developed by Drs. Scot Ruiz, Jessica Shelton, Michael Martinez and colleagues, with an educational tito from [employer]. Thrive Questionnaire Date Thrive assessed: 07/23/23 AUDIT C Alcohol Use Questionnaire (AUDIT-C) 1. How often do you have a drink containing alcohol?: 4 or more times a week 2. How many drinks containing alcohol do you have on a typical day when you are drinking?: 1 or 2 3. How often do you have six or more drinks on one occasion?: Never Total Score: 4 Score Reviewed/Action Taken: Yes SUZANNE-7 AMB Questionnaire SUZANNE-7 Date SUZANNE - 7 assessed: 07/23/23 Source: Developed by Drs. Scot Ruiz, Jessica Shelton, Michael Martinez and colleagues, with an educational tito from [employer]. Review of Systems Const Denies chills, Denies headache(s) and Denies weight loss ENT Denies headache(s) Card Denies chest pain, Denies syncope, Denies irregular heart rhythm and Denies dyspnea Resp Denies chest congestion, Denies cough and Denies dyspnea GI Denies abdominal pain, Denies change in stool character, Denies nausea and Denies vomiting Musc Denies deformity and Denies joint swelling Neuro Denies syncope and Denies headache(s) Physical exam (Primary Care) Vital Signs: Last Vital Signs Pulse 86 03/03/24 10:22 BP 142/80 H 03/03/24 10:22 Pulse Ox 98 03/03/24 10:22 Oxygen Delivery Method Room Air 03/03/24 10:22 BMI result Body Mass Index 28.6 Tobacco/Smoking Status: Tobacco use Status Tobacco use date assessed 10/15/23 03/03/24 10:24 Patient Tobacco Use Status Never used Tobacco 03/03/24 10:24 Tobacco use type Cigarette 03/03/24 10:26 e-Cigarette/Vaping Use Never Used 03/03/24 10:24 PHQ-9: PHQ-9 Score PHQ-9: Total score 0 03/03/24 10:26 Depression Screening Interpretation: Negative Thrive Assessment: Date of Thrive Assessment Date Thrive assessed 07/23/23 03/03/24 10:24 Const General: cooperative, comfortable, no acute distress and alert Neck Neck: Yes no lymphadenopathy Thyroid: Thyroid normal Resp Effort & Inspection: normal respiratory effort Auscultation: clear to auscultation bilaterally Percussion: percussion normal Cardio Jugular venous distension: no JVD Palpation: normal PMI Rate: regular rate Rhythm: regular rhythm Heart sounds: S1 normal heart sound present and S2 normal heart sound present GI Inspection: Yes normal to inspection Palpation (GI): No hepatosplenomegaly present Skin General skin exam: no rashes or lesions noted Extrem General: Yes no clubbing, cyanosis or edema Assessment and Plan Assessment & Plan (1) Low Back Pain: Code(s): M54.50 - Low back pain, unspecified Plan: stable; same rx Medications: Refilled oxycodone 5 mg PO Q6H 28 days PRN 112 tabs 0RF pain Coding Level of Care Code Est Pt Level 3 (16757) Diagnoses Low Back Pain M54.50
== END 2024-03-03 10:37 | disposition home or self-care (01) ==
PROVIDERS: PCP Internal Medicine; Visit Provider Internal Medicine
DX: M54.50 Low back pain, unspecified (principal)
CPT/HCPCS: 99213

== ENCOUNTER 2024-04-02 12:37 | Outpatient (AMB) | payer BC, SELFPAY ==
[2024-04-02 12:40] VITALS: BP 142/82; PULSE 75; O2SAT 98; BMI 29.4
--- NOTE | 2024-04-02 12:40 | MHC.PC.OV ---
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 Allergies No Known Allergies Allergy (Verified 04/02/24 12:40) Medication List - Last Reconciled 04/02/24 by Juaquin Martin MD amlodipine 10 mg PO DAILY cyclobenzaprine 10 mg PO TID PRN lidocaine 4% (AsperFlex (lidocaine)) 1 patch topical DAILY PRN loratadine (Allergy Relief (loratadine)) 10 mg PO DAILY PRN oxycodone 5 mg PO Q6H PRN 28 days sildenafil 50 mg PO DAILY PRN Tobacco use date assessed: 10/15/23 Dental Screening Dental Screen Date: 08/20/23 HPI Med Visit HPI Details chronic back pain on rx; doing well and compliant [facility] Medical History Back pain Surgical History History of vasectomy Family History Father Heart disease Mother Diabetes Brother No problems noted. Sister No problems noted. Daughter No problems noted. Daughter No problems noted. Social History Housing: House Alcohol intake: current Alcohol intake frequency: a few times a week Alcohol type: beer Patient Tobacco Use Status: Never used Tobacco Tobacco use type: Cigarette e-Cigarette/Vaping Use: Never Used Second Hand Smoke Exposure: Yes service: No Current occupational status: employed Current occupational exposures/hazards: No Cognitive needs: No Hearing needs: No Vision needs: No Questionnaire PHQ-9 Over the last 2 weeks, how often have you been bothered by any of the following problems? 1. Little interest or pleasure in doing things: not at all 2. Feeling down, depressed, or hopeless: not at all 3. Trouble falling or staying asleep, or sleeping too much: not at all 4. Feeling tired or having little energy: not at all 5. Poor appetite or overeating: not at all 6. Feeling bad about yourself - or that you are a failure or have let yourself or your family down: not at all 7. Trouble concentrating on things, such as reading the newspaper or watching television: not at all 8. Moving or speaking so slowly that other people could have noticed. Or the opposite - being so fidgety or restless that you have been moving around a lot more than usual: not at all 9. Thoughts that you would be better off or of hurting yourself in some way: not at all Total score: 0 Depression Screening Interpretation: Negative Depression Screening Done: Yes 35416 - PHQ-9 Billing: Yes Source: Developed by Drs. Scot Ruiz, Jessica Shelton, Michael Martinez and colleagues, with an educational tito from [employer]. Thrive Questionnaire Date Thrive assessed: 07/23/23 Are you currently unemployed and looking for a job?: No AUDIT C Alcohol Use Questionnaire (AUDIT-C) 1. How often do you have a drink containing alcohol?: 4 or more times a week 2. How many drinks containing alcohol do you have on a typical day when you are drinking?: 1 or 2 3. How often do you have six or more drinks on one occasion?: Never Total Score: 4 Score Reviewed/Action Taken: Yes SUZANNE-7 AMB Questionnaire SUZANNE-7 Date SUZANNE - 7 assessed: 07/23/23 Source: Developed by Drs. Scot Ruiz, Jessica Shelton, Michael Martinez and colleagues, with an educational tito from [employer]. Review of Systems Const Denies chills, Denies headache(s) and Denies weight loss ENT Denies headache(s) Card Denies chest pain, Denies syncope, Denies irregular heart rhythm and Denies dyspnea Resp Denies chest congestion, Denies cough and Denies dyspnea GI Denies abdominal pain, Denies change in stool character, Denies nausea and Denies vomiting Musc Denies deformity and Denies joint swelling Neuro Denies syncope and Denies headache(s) Physical exam (Primary Care) Vital Signs: Last Vital Signs Pulse 75 04/02/24 12:40 BP 142/82 H 04/02/24 12:40 Pulse Ox 98 04/02/24 12:40 Oxygen Delivery Method Room Air 04/02/24 12:40 BMI result Body Mass Index 29.4 Tobacco/Smoking Status: Tobacco use Status Tobacco use date assessed 10/15/23 04/02/24 12:44 Patient Tobacco Use Status Never used Tobacco 04/02/24 12:44 Tobacco use type Cigarette 04/02/24 12:44 e-Cigarette/Vaping Use Never Used 04/02/24 12:44 PHQ-9: PHQ-9 Score PHQ-9: Total score 0 04/02/24 12:44 Depression Screening Interpretation: Negative Thrive Assessment: Date of Thrive Assessment Date Thrive assessed 07/23/23 04/02/24 12:44 Const General: cooperative, comfortable, no acute distress and alert Neck Neck: Yes no lymphadenopathy Thyroid: Thyroid normal Resp Effort & Inspection: normal respiratory effort Auscultation: clear to auscultation bilaterally Percussion: percussion normal Cardio Jugular venous distension: no JVD Palpation: normal PMI Rate: regular rate Rhythm: regular rhythm Heart sounds: S1 normal heart sound present and S2 normal heart sound present GI Inspection: Yes normal to inspection Palpation (GI): No hepatosplenomegaly present Skin General skin exam: no rashes or lesions noted Extrem General: Yes no clubbing, cyanosis or edema Assessment and Plan Assessment & Plan (1) Low Back Pain: Code(s): M54.50 - Low back pain, unspecified Plan: stable; same rx Medications: Refilled oxycodone 5 mg PO Q6H 28 days PRN 112 tabs 0RF pain Coding Level of Care Code Est Pt Level 3 (65901) Diagnoses Low Back Pain M54.50
== END 2024-04-02 13:12 | disposition home or self-care (01) ==
PROVIDERS: PCP Internal Medicine; Visit Provider Internal Medicine
DX: M54.50 Low back pain, unspecified (principal)

== ENCOUNTER → 2024-04-02 12:37 | Outpatient (BNVA) | payer BC, SELFPAY | PROVIDERS: PCP Internal Medicine; Visit Provider Internal Medicine | DX: M54.50 Low back pain, unspecified (principal); Z79.891 Long term (current) use of opiate analgesic | CPT/HCPCS: 96127 ==

== ENCOUNTER 2024-04-30 10:22 | Outpatient (AMB) | payer BC, SELFPAY ==
--- NOTE | 2024-04-30 10:32 | MHC.PC.OV ---
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 Allergies No Known Allergies Allergy (Verified 04/30/24 10:33) Medication List - Last Reconciled 04/30/24 by Juaquin Martin MD amlodipine 10 mg PO DAILY cyclobenzaprine 10 mg PO TID PRN lidocaine 4% (AsperFlex (lidocaine)) 1 patch topical DAILY PRN loratadine (Allergy Relief (loratadine)) 10 mg PO DAILY PRN oxycodone 5 mg PO Q6H PRN 28 days sildenafil 50 mg PO DAILY PRN Tobacco use date assessed: 04/30/24 Dental Screening Dental Screen Date: 04/30/24 Did you have a dental visit in the last 12 months?: No Did you have a dental problem in the last 6 months where you did not have access to dental care?: No Was dental information given to patient?: No HPI 4 week F/U HPI Details chronic back pain on rx; doing well and compliant [facility] Medical History Back pain Surgical History History of vasectomy Family History Father Heart disease Mother Diabetes Brother No problems noted. Sister No problems noted. Daughter No problems noted. Daughter No problems noted. Social History Housing: House Alcohol intake: current Alcohol intake frequency: a few times a week Alcohol type: beer Patient Tobacco Use Status: Never used Tobacco Tobacco use type: Cigarette e-Cigarette/Vaping Use: Never Used Second Hand Smoke Exposure: Yes service: No Current occupational status: employed Current occupational exposures/hazards: No Cognitive needs: No Hearing needs: No Vision needs: No Questionnaire PHQ-9 Over the last 2 weeks, how often have you been bothered by any of the following problems? 1. Little interest or pleasure in doing things: not at all 2. Feeling down, depressed, or hopeless: not at all 3. Trouble falling or staying asleep, or sleeping too much: not at all 4. Feeling tired or having little energy: not at all 5. Poor appetite or overeating: not at all 6. Feeling bad about yourself - or that you are a failure or have let yourself or your family down: not at all 7. Trouble concentrating on things, such as reading the newspaper or watching television: not at all 8. Moving or speaking so slowly that other people could have noticed. Or the opposite - being so fidgety or restless that you have been moving around a lot more than usual: not at all 9. Thoughts that you would be better off or of hurting yourself in some way: not at all Total score: 0 Depression Screening Interpretation: Negative Depression Screening Done: Yes 83299 - PHQ-9 Billing: Yes Source: Developed by Drs. Scot Ruiz, Jessica Shelton, Michael Martinez and colleagues, with an educational tito from [employer]. Thrive Questionnaire Date Thrive assessed: 04/30/24 I am a: Patient What is your living situation today?: I have a steady place to live Within the past 12 months, did the food you bought not last and you didn't have the money to get more?: Never true Within the past 12 months, did you worry whether your food would run out before you got money to buy more?: Never true Do you have trouble paying for medicines?: No Do you have trouble getting transportation to medical appointments?: No Do you have trouble paying your heating and electricity bill?: No Do you have trouble taking care of your child, family member or friend?: No Do you have trouble with day-to-day activities such as bathing, preparing meals, shopping, managing finances, etc.?: No Are you currently unemployed and looking for a job?: No Are you interested in more education?: No Please select the resources that you would like help with: None Currently or been in a relationship where the following occur: No concerns reported THRIVE Score: 0 AUDIT C Alcohol Use Questionnaire (AUDIT-C) 1. How often do you have a drink containing alcohol?: 4 or more times a week 2. How many drinks containing alcohol do you have on a typical day when you are drinking?: 1 or 2 3. How often do you have six or more drinks on one occasion?: Never Total Score: 4 Score Reviewed/Action Taken: Yes SUZANNE-7 AMB Questionnaire SUZANNE-7 Date SUZANNE - 7 assessed: 04/30/24 Feeling nervous, anxious, or on edge: 0 = Not at all Not being able to stop or control worryin = Not at all Worrying too much about different things: 0 = Not at all Trouble relaxin = Not at all Being so restless that it is hard to sit still: 0 = Not at all Becoming easily annoyed or irritable: 0 = Not at all Feeling afraid as if something awful might happen: 0 = Not at all Total SUZANNE-7 score (0-4 normal; 5-9 mild; 10-14 moderate; 15-21 severe): 0 Source: Developed by Drs. Scot Ruiz, Jessica Shelton, Michael Martinez and colleagues, with an educational tito from [employer]. Review of Systems Const Denies chills, Denies headache(s) and Denies weight loss ENT Denies headache(s) Card Denies chest pain, Denies syncope, Denies irregular heart rhythm and Denies dyspnea Resp Denies chest congestion, Denies cough and Denies dyspnea GI Denies abdominal pain, Denies change in stool character, Denies nausea and Denies vomiting Musc Denies deformity and Denies joint swelling Neuro Denies syncope and Denies headache(s) Physical exam (Primary Care) Vital Signs: Last Vital Signs Pulse 68 04/30/24 10:33 BP 130/78 04/30/24 10:33 Pulse Ox 96 04/30/24 10:33 Oxygen Delivery Method Room Air 04/30/24 10:33 BMI result Body Mass Index 29.4 Tobacco/Smoking Status: Tobacco use Status Tobacco use date assessed 04/30/24 04/30/24 10:34 Patient Tobacco Use Status Never used Tobacco 04/30/24 10:34 Tobacco use type Cigarette 04/30/24 10:34 e-Cigarette/Vaping Use Never Used 04/30/24 10:34 PHQ-9: PHQ-9 Score PHQ-9: Total score 0 04/30/24 10:38 Depression Screening Interpretation: Negative Thrive Assessment: Date of Thrive Assessment Date Thrive assessed 04/30/24 04/30/24 10:34 Currently or been in a relationship where the following occur: No concerns reported Const General: cooperative, comfortable, no acute distress and alert Neck Neck: Yes no lymphadenopathy Thyroid: Thyroid normal Resp Effort & Inspection: normal respiratory effort Auscultation: clear to auscultation bilaterally Percussion: percussion normal Cardio Jugular venous distension: no JVD Palpation: normal PMI Rate: regular rate Rhythm: regular rhythm Heart sounds: S1 normal heart sound present and S2 normal heart sound present GI Inspection: Yes normal to inspection Palpation (GI): No hepatosplenomegaly present Skin General skin exam: no rashes or lesions noted Extrem General: Yes no clubbing, cyanosis or edema Office Procedures Flu Questionnaire Does the patient have a severe egg allergy?: No Immunizations Fluarix Triv [id number] (PF) 45 mcg (15 mcg x 3)/0.5 mL IM syringe Performing Provider: Juaquin Martin MD Performing [facility] [facility] [place] [facility] Documented (not given) by: RALPH Segura on 04/30/24 10:38 Reason Not Given: Patient Refused Coding Level of Care Code Est Pt Level 3 (31540) Diagnoses Low Back Pain M54.50 Assessment & Plan Assessment & Plan (1) Low Back Pain: Code(s): M54.50 - Low back pain, unspecified Category: Medical Plan: stable; same rx Orders: Orders Influenza [id number] Immunization Today Z23 - Encounter for immunization Medications: Refilled oxycodone 5 mg PO Q6H 28 days PRN 112 tabs 0RF pain
[2024-04-30 10:33] VITALS: BP 130/78; PULSE 68; O2SAT 96; BMI 29.4
== END 2024-04-30 10:44 | disposition home or self-care (01) ==
PROVIDERS: PCP Internal Medicine; Visit Provider Internal Medicine
DX: M54.50 Low back pain, unspecified (principal); Z23 Encounter for immunization

== ENCOUNTER → 2024-04-30 10:22 | Outpatient (BNVA) | payer BC, SELFPAY | PROVIDERS: PCP Internal Medicine; Visit Provider Internal Medicine | DX: M54.50 Low back pain, unspecified (principal); Z28.21 Immunization not carried out because of patient refusal | CPT/HCPCS: 90471; 96127 ==

== ENCOUNTER 2024-05-28 10:18 | Outpatient (AMB) | payer BC, SELFPAY ==
[2024-05-28 10:26] VITALS: BP 132/68; PULSE 68; O2SAT 98; BMI 29.7
--- NOTE | 2024-05-28 10:26 | MHC.PC.OV ---
Vital Signs 05/28/24 10:26 Height 5 ft 11 in Weight 213 lb BMI 29.7 BP 132/68 Blood Pressure Location Lt brachial Position Sitting Pulse 68 Pulse Source Pulse Oximeter Pulse Oximetry (%) 98 Oxygen Delivery Method Room Air Intake Visit Reasons: 4 week F/U Allergies No Known Allergies Allergy (Verified 05/28/24 10:26) Medication List - Last Reconciled 05/28/24 by Juaquin Martin MD amlodipine 10 mg PO DAILY cyclobenzaprine 10 mg PO TID PRN lidocaine 4% (AsperFlex (lidocaine)) 1 patch topical DAILY PRN loratadine (Allergy Relief (loratadine)) 10 mg PO DAILY PRN oxycodone 5 mg PO Q6H PRN 28 days sildenafil 50 mg PO DAILY PRN Tobacco use date assessed: 04/30/24 Fall risk assessment: No Falls in past year Last assessed Fall Risk: 05/28/24 Dental Screening Dental Screen Date: 04/30/24 HPI 4 week F/U HPI Details chronic back pain on rx; doing well and compliant with regimen [facility] Medical History Back pain Surgical History History of vasectomy Family History Father Heart disease Mother Diabetes Brother No problems noted. Sister No problems noted. Daughter No problems noted. Daughter No problems noted. Social History Housing: House Alcohol intake: current Alcohol intake frequency: a few times a week Alcohol type: beer Patient Tobacco Use Status: Never used Tobacco Tobacco use type: Cigarette e-Cigarette/Vaping Use: Never Used Second Hand Smoke Exposure: Yes service: No Current occupational status: employed Current occupational exposures/hazards: No Cognitive needs: No Hearing needs: No Vision needs: No Questionnaire PHQ-9 Over the last 2 weeks, how often have you been bothered by any of the following problems? 1. Little interest or pleasure in doing things: not at all 2. Feeling down, depressed, or hopeless: not at all 3. Trouble falling or staying asleep, or sleeping too much: not at all 4. Feeling tired or having little energy: not at all 5. Poor appetite or overeating: not at all 6. Feeling bad about yourself - or that you are a failure or have let yourself or your family down: not at all 7. Trouble concentrating on things, such as reading the newspaper or watching television: not at all 8. Moving or speaking so slowly that other people could have noticed. Or the opposite - being so fidgety or restless that you have been moving around a lot more than usual: not at all 9. Thoughts that you would be better off or of hurting yourself in some way: not at all Total score: 0 Depression Screening Interpretation: Negative Depression Screening Done: Yes 99676 - PHQ-9 Billing: Yes Source: Developed by Drs. Scot Ruiz, Jessica Shelton, Michael Martinez and colleagues, with an educational tito from [employer]. Thrive Questionnaire Date Thrive assessed: 04/30/24 Are you currently unemployed and looking for a job?: No AUDIT C Alcohol Use Questionnaire (AUDIT-C) 1. How often do you have a drink containing alcohol?: 4 or more times a week 2. How many drinks containing alcohol do you have on a typical day when you are drinking?: 1 or 2 3. How often do you have six or more drinks on one occasion?: Never Total Score: 4 Score Reviewed/Action Taken: Yes SUZANNE-7 AMB Questionnaire SUZANNE-7 Date SUZANNE - 7 assessed: 04/30/24 Source: Developed by Drs. Scot Ruiz, Jessica Shelton, Michael Martinez and colleagues, with an educational tito from [employer]. Review of Systems Const Denies chills, Denies headache(s) and Denies weight loss ENT Denies headache(s) Card Denies chest pain, Denies syncope, Denies irregular heart rhythm and Denies dyspnea Resp Denies chest congestion, Denies cough and Denies dyspnea GI Denies abdominal pain, Denies change in stool character, Denies nausea and Denies vomiting Musc Denies deformity and Denies joint swelling Neuro Denies syncope and Denies headache(s) Physical exam (Primary Care) Vital Signs: Last Vital Signs Pulse 68 05/28/24 10:26 BP 132/68 05/28/24 10:26 Pulse Ox 98 05/28/24 10:26 Oxygen Delivery Method Room Air 05/28/24 10:26 BMI result Body Mass Index 29.7 Tobacco/Smoking Status: Tobacco use Status Tobacco use date assessed 04/30/24 05/28/24 10:29 Patient Tobacco Use Status Never used Tobacco 05/28/24 10:29 Tobacco use type Cigarette 05/28/24 10:29 e-Cigarette/Vaping Use Never Used 05/28/24 10:29 PHQ-9: PHQ-9 Score PHQ-9: Total score 0 05/28/24 10:29 Depression Screening Interpretation: Negative Thrive Assessment: Date of Thrive Assessment Date Thrive assessed 04/30/24 05/28/24 10:29 Const General: cooperative, comfortable, no acute distress and alert Neck Neck: Yes no lymphadenopathy Thyroid: Thyroid normal Resp Effort & Inspection: normal respiratory effort Auscultation: clear to auscultation bilaterally Percussion: percussion normal Cardio Jugular venous distension: no JVD Palpation: normal PMI Rate: regular rate Rhythm: regular rhythm Heart sounds: S1 normal heart sound present and S2 normal heart sound present GI Inspection: Yes normal to inspection Palpation (GI): No hepatosplenomegaly present Skin General skin exam: no rashes or lesions noted Extrem General: Yes no clubbing, cyanosis or edema Coding Level of Care Code Est Pt Level 3 (10843) Diagnoses Low Back Pain M54.50 Additional Codes PHQ-9 - 43039 - PHQ-9 Billing: Yes ([id number]) Assessment & Plan Assessment & Plan (1) Low Back Pain: Code(s): M54.50 - Low back pain, unspecified Category: Medical Plan: stable; same rx Medications: Refilled oxycodone 5 mg PO Q6H 28 days PRN 112 tabs 0RF pain
== END 2024-05-28 12:25 | disposition home or self-care (01) ==
PROVIDERS: PCP Internal Medicine; Visit Provider Internal Medicine
DX: M54.50 Low back pain, unspecified (principal)

== ENCOUNTER → 2024-05-28 10:18 | Outpatient (BNVA) | payer BC, SELFPAY | PROVIDERS: PCP Internal Medicine; Visit Provider Internal Medicine | DX: M54.50 Low back pain, unspecified (principal); Z79.891 Long term (current) use of opiate analgesic | CPT/HCPCS: 96127 ==

== ENCOUNTER 2024-06-25 10:03 | Outpatient (AMB) | payer BC, SELFPAY ==
[2024-06-25 10:37] VITALS: BP 138/80; PULSE 78; O2SAT 98; BMI 29.7
--- NOTE | 2024-06-25 10:37 | A.OFFPC_ITS ---
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 Accompanied by: Self / Same As Patient Allergies No Known Allergies Allergy (Verified 06/25/24 10:39) Medication List - Last Reconciled 06/25/24 by Juaquin Martin MD amlodipine 10 mg PO DAILY cyclobenzaprine 10 mg PO TID PRN loratadine (Allergy Relief (loratadine)) 10 mg PO DAILY PRN oxycodone 5 mg PO Q6H PRN 28 days sildenafil 50 mg PO DAILY PRN Tobacco use date assessed: 04/30/24 Fall risk assessment: No Falls in past year Last assessed Fall Risk: 06/25/24 Dental Screening Dental Screen Date: 06/25/24 Did you have a dental visit in the last 12 months?: No Did you have a dental problem in the last 6 months where you did not have access to dental care?: No Was dental information given to patient?: Patient has dentist HPI 4 weeks f/u HPI Details chronic back pain on rx; doing well and compliant [facility] Medical History Back pain Surgical History History of vasectomy Family History Father Heart disease Mother Diabetes Brother No problems noted. Sister No problems noted. Daughter No problems noted. Daughter No problems noted. Social History Housing: House Alcohol intake: current Alcohol intake frequency: a few times a week Alcohol type: beer Patient Tobacco Use Status: Never used Tobacco Tobacco use type: Cigarette e-Cigarette/Vaping Use: Never Used Second Hand Smoke Exposure: Yes service: No Current occupational status: employed Current occupational exposures/hazards: No Cognitive needs: No Hearing needs: No Vision needs: No Questionnaire Thrive Questionnaire Date Thrive assessed: 04/30/24 Are you currently unemployed and looking for a job?: No SUZANNE-7 AMB Questionnaire SUZANNE-7 Date SUZANNE - 7 assessed: 04/30/24 Source: Developed by DrsMary Ruiz, Jessica Shelton, Michael Martinez and colleagues, with an educational tito from [employer]. Review of Systems Const Denies chills, Denies headache(s) and Denies weight loss ENT Denies headache(s) Card Denies chest pain, Denies syncope, Denies irregular heart rhythm and Denies dyspnea Resp Denies chest congestion, Denies cough and Denies dyspnea GI Denies abdominal pain, Denies change in stool character, Denies nausea and Denies vomiting Musc Denies deformity and Denies joint swelling Neuro Denies syncope and Denies headache(s) Physical exam (Primary Care) Vital Signs: Last Vital Signs Pulse 78 06/25/24 10:37 BP 138/80 06/25/24 10:37 Pulse Ox 98 06/25/24 10:37 Oxygen Delivery Method Room Air 06/25/24 10:37 BMI result Body Mass Index 29.7 Tobacco/Smoking Status: Tobacco use Status Tobacco use date assessed 04/30/24 06/25/24 10:40 Patient Tobacco Use Status Never used Tobacco 06/25/24 10:40 Tobacco use type Cigarette 06/25/24 10:40 e-Cigarette/Vaping Use Never Used 06/25/24 10:40 Thrive Assessment: Date of Thrive Assessment Date Thrive assessed 04/30/24 06/25/24 10:40 Const General: cooperative, comfortable, no acute distress and alert Neck Neck: Yes no lymphadenopathy Thyroid: Thyroid normal Resp Effort & Inspection: normal respiratory effort Auscultation: clear to auscultation bilaterally Percussion: percussion normal Cardio Jugular venous distension: no JVD Palpation: normal PMI Rate: regular rate Rhythm: regular rhythm Heart sounds: S1 normal heart sound present and S2 normal heart sound present GI Inspection: Yes normal to inspection Palpation (GI): No hepatosplenomegaly present Skin General skin exam: no rashes or lesions noted Extrem General: Yes no clubbing, cyanosis or edema Office Procedures Flu Questionnaire Does the patient have a severe egg allergy?: No Immunizations Fluarix Triv [id number] (PF) 45 mcg (15 mcg x 3)/0.5 mL IM syringe Performing Provider: Juaquin Martin MD Performing Location: [facility] [place] [facility] Documented (not given) by: RALPH Carr on 06/25/24 10:41 Reason Not Given: Patient Refused Coding Level of Care Code Est Pt Level 3 (24068) Diagnoses Low Back Pain M54.50 Assessment & Plan Assessment & Plan (1) Low Back Pain: Code(s): M54.50 - Low back pain, unspecified Category: Medical Plan: stable; same rx Orders: Orders Complete Blood Count Auto Diff Today Z13.0 - Encounter for screening for diseases of the blood and blood-forming organs and certain disorders involving the immune mechanism Prostate Specific Antigen Scr Today Z00.00 - Encounter for general adult medical examination without abnormal findings Influenza [id number] Immunization Today Z23 - Encounter for immunization Comprehensive [place]. Panel Fast Today Z13.9 - Encounter for screening, unspecified Lipid Panel Today Z13.220 - Encounter for screening for lipoid disorders Testosterone, Free/Total Today R79.89 - Other specified abnormal findings of blood chemistry Medications: Refilled oxycodone 5 mg PO Q6H 28 days PRN 112 tabs 0RF pain
== END 2024-06-25 11:37 | disposition home or self-care (01) ==
PROVIDERS: PCP Internal Medicine; Visit Provider Internal Medicine
DX: M54.50 Low back pain, unspecified (principal); Z23 Encounter for immunization

== ENCOUNTER → 2024-06-25 10:03 | Outpatient (BNVA) | payer BC, SELFPAY | PROVIDERS: PCP Internal Medicine; Visit Provider Internal Medicine | DX: M54.50 Low back pain, unspecified (principal); Z79.891 Long term (current) use of opiate analgesic; Z28.21 Immunization not carried out because of patient refusal | CPT/HCPCS: 90471 ==

== ENCOUNTER 2024-07-11 09:19 | Outpatient (REF) | payer BC, SELFPAY ==
[2024-07-11 09:36] LABS: MANUAL DIFF FLAG NO
[2024-07-11 09:50] LABS: Basophils Percent Auto 0.5 % (0-2); Eosinophils Absolute Auto 0.1 X10*3/uL (0.0-0.4); Eosinophils Percent Auto 1.4 % (0-4); Hematocrit 43.7 % (42.0-52.0); Imm Gran Abs Auto 0.02 X10*3/uL (0.00-0.03); Imm Gran Pct Auto 0.4 % (0.0-0.4); Lymphocytes Absolute Auto 2.2 X10*3/uL (1.2-4.9); Lymphocytes Percent Auto 39.4 % (20-40); Mean Corpuscular HGB Conc 34.3 g/dl (31.0-36.0); Mean Corpuscular Hemoglobin 28.6 pg (27.0-33.0); Mean Corpuscular Volume 83.2 fL (80.0-98.0); Mean Platelet Volume 9.7 fL (9.4-12.4); Monocytes Absolute Auto 0.5 X10*3/uL (0.1-1.2); Neutrophils Absolute Auto 2.8 x10*3/uL (2.0-8.3); Neutrophils Percent Auto 49.3 % (45-73); Platelet Count 242 X10*3/uL (160-400); Red Blood Count 5.25 X10*6/uL (4.60-5.80); Red Cell Distribution Width 13.3 % (11.0-16.0); White Blood Count 5.7 X10*3/uL (4.8-10.8)
[2024-07-11 10:55] LABS: Alanine Aminotransferase 44 U/L (0-40); Albumin Level 4.5 g/dL (3.5-5.0); Alkaline Phosphatase 65 U/L (39-117); Anion Gap 10 (12-20); Aspartate Amino Transferase 20 U/L (5-37); Bilirubin Total 0.7 mg/dL (0.0-1.0); Blood Urea Nitrogen 10 mg/dL (9-16); Calcium 9.1 mg/dL (8.4-10.2); Carbon Dioxide 28 mmol/L (22-29); Chloride 103 mmol/L (96-108); Cholesterol 208 mg/dL (<200); Estimated Glomerular Filt Rate > 60; Glucose Fasting 181 mg/dL (60-99); HDL Cholesterol 42 mg/dL (>40); LDL Cholesterol Calculated 138 mg/dL (<100); Potassium 4.4 mmol/L (3.3-5.1); Sodium 137 mmol/L (135-145); Total Protein 7.4 g/dL (6.5-8.0); Triglycerides 141 mg/dL (<150)
[2024-07-11 11:26] LABS: Prostate Specific Antigen Scr 1.21 ng/mL (<0.05-4.0)
[2024-07-19 16:18] LABS: Testosterone, Free 71.7 pg/mL (35.0-155.0); Testosterone, Total 583 ng/dL (250-1100)
== END 2024-07-11 09:20 | disposition home or self-care (01) ==
LOC: HO.LAB 09:19
PROVIDERS: PCP Internal Medicine; Visit Provider Internal Medicine
DX: Z00.00 Encounter for general adult medical examination without abnormal findings (principal); Z13.0 Encounter for screening for diseases of the blood and blood-forming organs and certain disorders involving the immune mechanism; Z13.9 Encounter for screening, unspecified; Z13.220 Encounter for screening for lipoid disorders; R79.89 Other specified abnormal findings of blood chemistry; Z12.5 Encounter for screening for malignant neoplasm of prostate
CPT/HCPCS: 36415; 80053; 80061; 84153; 84402; 84403; 85025

== ENCOUNTER 2024-07-16 10:27 | Outpatient (AMB) | payer BC, SELFPAY ==
[2024-07-16 10:33] VITALS: BP 120/78; PULSE 68; O2SAT 99
--- NOTE | 2024-07-16 10:33 | A.OFFPC_ITS ---
Vital Signs 07/16/24 10:33 Height 5 ft 11 in Weight 215 lb 6 oz BMI 30.0 BP 120/78 Blood Pressure Location Lt brachial Position Sitting Pulse 68 Pulse Source Pulse Oximeter Pulse Oximetry (%) 99 Oxygen Delivery Method Room Air Intake Visit Reasons: 4 week follow up Marketing Assistant Manager Required: No Accompanied by: Self / Same As Patient Allergies No Known Allergies Allergy (Verified 07/16/24 10:33) Medication List - Last Reconciled 07/16/24 by Juaquin Martin MD amlodipine 10 mg PO DAILY cyclobenzaprine 10 mg PO TID PRN loratadine (Allergy Relief (loratadine)) 10 mg PO DAILY PRN oxycodone 5 mg PO Q6H PRN 28 days sildenafil 50 mg PO DAILY PRN Tobacco use date assessed: 07/16/24 Fall risk assessment: No Falls in past year Last assessed Fall Risk: 07/16/24 Dental Screening Dental Screen Date: 07/16/24 Did you have a dental visit in the last 12 months?: Yes Did you have a dental problem in the last 6 months where you did not have access to dental care?: No Was dental information given to patient?: Patient has dentist HPI 4 week follow up HPI Details chronic back pain on rx; doing well and compliant [facility] Medical History Back pain Surgical History History of vasectomy Family History Father Heart disease Mother Diabetes Brother No problems noted. Sister No problems noted. Daughter No problems noted. Daughter No problems noted. Social History Housing: House Alcohol intake: current Alcohol intake frequency: a few times a week Alcohol type: beer Patient Tobacco Use Status: Never used Tobacco Tobacco use type: Cigarette e-Cigarette/Vaping Use: Never Used Second Hand Smoke Exposure: Yes service: No Current occupational status: employed Current occupational exposures/hazards: No Cognitive needs: No Hearing needs: No Vision needs: No Questionnaire PHQ-9 Over the last 2 weeks, how often have you been bothered by any of the following problems? 1. Little interest or pleasure in doing things: not at all 2. Feeling down, depressed, or hopeless: not at all 3. Trouble falling or staying asleep, or sleeping too much: not at all 4. Feeling tired or having little energy: not at all 5. Poor appetite or overeating: not at all 6. Feeling bad about yourself - or that you are a failure or have let yourself or your family down: not at all 7. Trouble concentrating on things, such as reading the newspaper or watching television: not at all 8. Moving or speaking so slowly that other people could have noticed. Or the opposite - being so fidgety or restless that you have been moving around a lot more than usual: not at all 9. Thoughts that you would be better off or of hurting yourself in some way: not at all Total score: 0 Depression Screening Interpretation: Negative Depression Screening Done: Yes 17384 - PHQ-9 Billing: Yes Source: Developed by Drs. Scot Ruiz, Jessica Shelton, Michael Martinez and colleagues, with an educational tito from [employer]. Thrive Questionnaire Date Thrive assessed: 07/16/24 I am a: Patient What is your living situation today?: I have a steady place to live Within the past 12 months, did the food you bought not last and you didn't have the money to get more?: Never true Within the past 12 months, did you worry whether your food would run out before you got money to buy more?: Never true Do you have trouble paying for medicines?: No Do you have trouble getting transportation to medical appointments?: No Do you have trouble paying your heating and electricity bill?: No Do you have trouble taking care of your child, family member or friend?: No Do you have trouble with day-to-day activities such as bathing, preparing meals, shopping, managing finances, etc.?: No Are you currently unemployed and looking for a job?: No Are you interested in more education?: No Please select the resources that you would like help with: None Currently or been in a relationship where the following occur: No concerns reported THRIVE Score: 0 AUDIT C Alcohol Use Questionnaire (AUDIT-C) 1. How often do you have a drink containing alcohol?: 4 or more times a week 2. How many drinks containing alcohol do you have on a typical day when you are drinking?: 1 or 2 3. How often do you have six or more drinks on one occasion?: Never Total Score: 4 Score Reviewed/Action Taken: Yes SUZANNE-7 AMB Questionnaire SUZANNE-7 Date SUZANNE - 7 assessed: 07/16/24 Feeling nervous, anxious, or on edge: 0 = Not at all Not being able to stop or control worryin = Not at all Worrying too much about different things: 0 = Not at all Trouble relaxin = Not at all Being so restless that it is hard to sit still: 0 = Not at all Becoming easily annoyed or irritable: 0 = Not at all Feeling afraid as if something awful might happen: 0 = Not at all Total SUZANNE-7 score (0-4 normal; 5-9 mild; 10-14 moderate; 15-21 severe): 0 Source: Developed by Drs. Scot Ruiz, Jessica Shelton, Michael Martinez and colleagues, with an educational tito from [employer]. Review of Systems Const Denies chills, Denies headache(s) and Denies weight loss ENT Denies headache(s) Card Denies chest pain, Denies syncope, Denies irregular heart rhythm and Denies dyspnea Resp Denies chest congestion, Denies cough and Denies dyspnea GI Denies abdominal pain, Denies change in stool character, Denies nausea and Denies vomiting Musc Denies deformity and Denies joint swelling Neuro Denies syncope and Denies headache(s) Physical exam (Primary Care) Vital Signs: Last Vital Signs Pulse 68 07/16/24 10:33 BP 120/78 07/16/24 10:33 Pulse Ox 99 07/16/24 10:33 Oxygen Delivery Method Room Air 07/16/24 10:33 BMI result Body Mass Index 30.0 Tobacco/Smoking Status: Tobacco use Status Tobacco use date assessed 07/16/24 07/16/24 10:38 Patient Tobacco Use Status Never used Tobacco 07/16/24 10:38 Tobacco use type Cigarette 07/16/24 10:38 e-Cigarette/Vaping Use Never Used 07/16/24 10:38 PHQ-9: PHQ-9 Score PHQ-9: Total score 0 07/16/24 10:38 Depression Screening Interpretation: Negative Thrive Assessment: Date of Thrive Assessment Date Thrive assessed 07/16/24 07/16/24 10:38 Currently or been in a relationship where the following occur: No concerns reported Const General: cooperative, comfortable, no acute distress and alert Neck Neck: Yes no lymphadenopathy Thyroid: Thyroid normal Resp Effort & Inspection: normal respiratory effort Auscultation: clear to auscultation bilaterally Percussion: percussion normal Cardio Jugular venous distension: no JVD Palpation: normal PMI Rate: regular rate Rhythm: regular rhythm Heart sounds: S1 normal heart sound present and S2 normal heart sound present GI Inspection: Yes normal to inspection Palpation (GI): No hepatosplenomegaly present Skin General skin exam: no rashes or lesions noted Extrem General: Yes no clubbing, cyanosis or edema Coding Level of Care Code Est Pt Level 3 (38246) Diagnoses Low Back Pain M54.50 Additional Codes PHQ-9 - 63601 - PHQ-9 Billing: Yes ([id number]) Assessment & Plan Assessment & Plan (1) Low Back Pain: Code(s): M54.50 - Low back pain, unspecified Category: Medical Plan: stable; same rx Orders: Orders Hemoglobin A1c Today R73.9 - Hyperglycemia, unspecified Glucose Fasting Today R73.9 - Hyperglycemia, unspecified Medications: Refilled cyclobenzaprine 10 mg PO TID PRN 30 tabs 2RF for muscle spasm oxycodone 5 mg PO Q6H 28 days PRN 112 tabs 0RF pain
== END 2024-07-16 11:56 | disposition home or self-care (01) ==
PROVIDERS: PCP Internal Medicine; Visit Provider Internal Medicine
DX: M54.50 Low back pain, unspecified (principal)

== ENCOUNTER → 2024-07-16 10:27 | Outpatient (BNVA) | payer BC, SELFPAY | PROVIDERS: PCP Internal Medicine; Visit Provider Internal Medicine | DX: M54.50 Low back pain, unspecified (principal); G89.29 Other chronic pain; Z79.891 Long term (current) use of opiate analgesic; Z79.899 Other long term (current) drug therapy | CPT/HCPCS: 96127 ==

== ENCOUNTER 2024-08-14 08:41 | Outpatient (REF) | payer BC, SELFPAY ==
[2024-08-14 09:46] LABS: Glucose Fasting 176 mg/dL (60-99)
[2024-08-14 11:17] LABS: Estimated Average Glucose 163 mg/dL; Hemoglobin A1C 231.4782 umol/L; Hemoglobin A1c % 7.3 % (<6.0); Total Hemoglobin (HGBA1C) 4081.9524 umol/L
== END 2024-08-14 08:42 | disposition home or self-care (01) ==
LOC: HO.LAB 08:41
PROVIDERS: PCP Internal Medicine; Visit Provider Internal Medicine
DX: G89.29 Other chronic pain (principal); M54.50 Low back pain, unspecified; M51.369 Other intervertebral disc degeneration, lumbar region without mention of lumbar back pain or lower extremity pain; R73.9 Hyperglycemia, unspecified; Z79.891 Long term (current) use of opiate analgesic
CPT/HCPCS: 36415; 82947; 83036; 96127

== ENCOUNTER 2024-09-11 12:30 | Outpatient (AMB) | payer BC, SELFPAY ==
--- NOTE | 2024-09-11 12:41 | A.OFFPC_ITS ---
Vital Signs 09/11/24 12:42 Height 5 ft 11 in Weight 214 lb 8 oz BMI 29.9 BP 120/78 Blood Pressure Location Lt brachial Position Sitting Pulse 82 Pulse Source Pulse Oximeter Temp 96.9 F Temp Source Temporal Artery Scan Pulse Oximetry (%) 97 Oxygen Delivery Method Room Air Intake Visit Reasons: 4 week f/u Intake Note: Patient is here to follow up on Back pain. Siebel Solution Architect Required: No Family Court Registrar: Not Required per policy Accompanied by: Self / Same As Patient Allergies No Known Allergies Allergy (Verified 09/11/24 12:42) Medication List - Last Reconciled 09/11/24 by Juaquin Martin MD amlodipine 10 mg PO DAILY cyclobenzaprine 10 mg PO TID PRN loratadine (Allergy Relief (loratadine)) 10 mg PO DAILY PRN oxycodone 5 mg PO Q6H PRN 28 days sildenafil 50 mg PO DAILY PRN Tobacco use date assessed: 09/11/24 Fall risk assessment: No Falls in past year Last assessed Fall Risk: 09/11/24 Dental Screening Dental Screen Date: 07/16/24 HPI 4 week f/u HPI Details chronic low back pain on rx; doing well and compliant [facility] Medical History Back pain Surgical History History of vasectomy Family History Father Heart disease Mother Diabetes Brother No problems noted. Sister No problems noted. Daughter No problems noted. Daughter No problems noted. Social History Housing: House Alcohol intake: current Alcohol intake frequency: a few times a week Alcohol type: beer Patient Tobacco Use Status: Never used Tobacco Tobacco use type: Cigarette e-Cigarette/Vaping Use: Never Used Second Hand Smoke Exposure: Yes service: No Current occupational status: employed Current occupational exposures/hazards: No Cognitive needs: No Hearing needs: No Vision needs: No Questionnaire Thrive Questionnaire Date Thrive assessed: 07/16/24 SUZANNE-7 AMB Questionnaire SUZANNE-7 Date SUZANNE - 7 assessed: 07/16/24 Source: Developed by Drs. Scot Ruiz, Jessica Shelton, Michael Martinez and colleagues, with an educational tito from [employer]. Review of Systems Const Denies chills, Denies headache(s) and Denies weight loss ENT Denies headache(s) Card Denies chest pain, Denies syncope, Denies irregular heart rhythm and Denies dyspnea Resp Denies chest congestion, Denies cough and Denies dyspnea GI Denies abdominal pain, Denies change in stool character, Denies nausea and Denies vomiting Musc Denies deformity and Denies joint swelling Neuro Denies syncope and Denies headache(s) Physical exam (Primary Care) Vital Signs: Last Vital Signs Temp 96.9 F 09/11/24 12:42 Pulse 82 09/11/24 12:42 BP 120/78 09/11/24 12:42 Pulse Ox 97 09/11/24 12:42 Oxygen Delivery Method Room Air 09/11/24 12:42 BMI result Body Mass Index 29.9 Tobacco/Smoking Status: Tobacco use Status Tobacco use date assessed 09/11/24 09/11/24 12:45 Patient Tobacco Use Status Never used Tobacco 09/11/24 12:45 Tobacco use type Cigarette 09/11/24 12:45 e-Cigarette/Vaping Use Never Used 09/11/24 12:45 Thrive Assessment: Date of Thrive Assessment Date Thrive assessed 07/16/24 09/11/24 12:45 Const General: cooperative, comfortable, no acute distress and alert Neck Neck: Yes no lymphadenopathy Thyroid: Thyroid normal Resp Effort & Inspection: normal respiratory effort Auscultation: clear to auscultation bilaterally Percussion: percussion normal Cardio Jugular venous distension: no JVD Palpation: normal PMI Rate: regular rate Rhythm: regular rhythm Heart sounds: S1 normal heart sound present and S2 normal heart sound present GI Inspection: Yes normal to inspection Palpation (GI): No hepatosplenomegaly present Skin General skin exam: no rashes or lesions noted Extrem General: Yes no clubbing, cyanosis or edema Coding Level of Care Code Est Pt Level 3 (57004) Diagnoses Low Back Pain M54.50 Assessment & Plan Assessment & Plan (1) Low Back Pain: Code(s): M54.50 - Low back pain, unspecified Category: Medical Plan: stable; same rx Medications: Refilled oxycodone 5 mg PO Q6H 28 days PRN 112 tabs 0RF pain sildenafil administer 30 minutes to 4 hours before activity 50 mg PO DAILY PRN 60 tabs 0RF sexual activity
[2024-09-11 12:42] VITALS: BP 120/78; PULSE 82; TEMP 36.1; O2SAT 97; BMI 29.9
== END 2024-09-11 13:06 | disposition home or self-care (01) ==
PROVIDERS: PCP Internal Medicine; Visit Provider Internal Medicine
DX: M54.50 Low back pain, unspecified (principal)

== ENCOUNTER → 2024-09-11 12:30 | Outpatient (BNVA) | payer BC, SELFPAY | PROVIDERS: PCP Internal Medicine; Visit Provider Internal Medicine ==

== ENCOUNTER 2024-10-08 13:32 | Outpatient (AMB) | payer BC, SELFPAY ==
[2024-10-08 13:49] VITALS: BP 138/72; PULSE 83; O2SAT 96; BMI 30.3
--- NOTE | 2024-10-08 13:49 | A.OFFPC_ITS ---
Vital Signs 10/08/24 13:49 Height 5 ft 11 in Weight 217 lb BMI 30.3 BP 138/72 Blood Pressure Location Lt brachial Position Sitting Pulse 83 Pulse Source Pulse Oximeter Pulse Oximetry (%) 96 Oxygen Delivery Method Room Air Intake Visit Reasons: DALE Dr. Martin Allergies No Known Allergies Allergy (Verified 10/08/24 13:49) Medication List - Last Reconciled 10/08/24 by Yelena Braun MD amlodipine 10 mg PO DAILY cyclobenzaprine 10 mg PO TID PRN oxycodone 5 mg PO Q6H PRN 28 days sildenafil 50 mg PO DAILY PRN Tobacco use date assessed: 09/11/24 Fall risk assessment: No Falls in past year Last assessed Fall Risk: 10/08/24 Dental Screening Dental Screen Date: 07/16/24 [facility] Medical History (Updated 10/08/24 @ 14:41 by Yelena Braun MD) Apnea Surgical History History of vasectomy Family History Father Heart disease Mother Diabetes Brother No problems noted. Sister No problems noted. Daughter No problems noted. Daughter No problems noted. Social History (Updated 10/08/24 @ 14:35 by Yelena Braun MD) Housing: House Alcohol intake: current Alcohol intake frequency: a few times a week Alcohol type: beer Comment: 2-3x a week 2-3 drinks Patient Tobacco Use Status: Never used Tobacco Tobacco use type: Cigarette e-Cigarette/Vaping Use: Never Used Second Hand Smoke Exposure: Yes service: No Current occupational status: employed Current occupational exposures/hazards: No Cognitive needs: No Hearing needs: No Vision needs: No Questionnaire PHQ-9 Over the last 2 weeks, how often have you been bothered by any of the following problems? 1. Little interest or pleasure in doing things: not at all 2. Feeling down, depressed, or hopeless: not at all 3. Trouble falling or staying asleep, or sleeping too much: not at all 4. Feeling tired or having little energy: not at all 5. Poor appetite or overeating: not at all 6. Feeling bad about yourself - or that you are a failure or have let yourself or your family down: not at all 7. Trouble concentrating on things, such as reading the newspaper or watching television: not at all 8. Moving or speaking so slowly that other people could have noticed. Or the opposite - being so fidgety or restless that you have been moving around a lot more than usual: not at all 9. Thoughts that you would be better off or of hurting yourself in some way: not at all Total score: 0 Depression Screening Interpretation: Negative Depression Screening Done: Yes 11320 - PHQ-9 Billing: Yes Source: Developed by Drs. Scot Ruiz, Jessica Shelton, Michael Martinez and colleagues, with an educational tito from [employer]. Thrive Questionnaire Date Thrive assessed: 07/16/24 AUDIT C Alcohol Use Questionnaire (AUDIT-C) 2. How many drinks containing alcohol do you have on a typical day when you are drinking?: 1 or 2 3. How often do you have six or more drinks on one occasion?: Less than monthly Total Score: 1 SUZANNE-7 AMB Questionnaire SUZANNE-7 Date SUZANNE - 7 assessed: 07/16/24 Source: Developed by Drs. Scot Ruiz, Jessica Shelton, Michael Martinez and colleagues, with an educational tito from [employer]. Physical exam (Primary Care) Vital Signs: Last Vital Signs Pulse 83 10/08/24 13:49 BP 138/72 10/08/24 13:49 Pulse Ox 96 10/08/24 13:49 Oxygen Delivery Method Room Air 10/08/24 13:49 BMI result Body Mass Index 30.3 Tobacco/Smoking Status: Tobacco use Status Tobacco use date assessed 09/11/24 10/08/24 13:53 Patient Tobacco Use Status Never used Tobacco 10/08/24 13:53 Tobacco use type Cigarette 10/08/24 13:53 e-Cigarette/Vaping Use Never Used 10/08/24 13:53 PHQ-9: PHQ-9 Score PHQ-9: Total score 0 10/08/24 13:53 Depression Screening Interpretation: Negative Thrive Assessment: Date of Thrive Assessment Date Thrive assessed 07/16/24 10/08/24 13:53 Const General: alert; No acute distress Eyes Conjunctivae: conjunctivae normal Resp Auscultation: clear to auscultation bilaterally Cardio Rate: regular rate Rhythm: regular rhythm GI Inspection: Yes normal to inspection Extrem Other: 1+ edema lower extremity both General: Yes edema Coding Level of Care Code Est Pt Level 4 (52744) Complex EM visit Add On G2211 Diagnoses Type 2 diabetes mellitus with hyperglycemia E11.65 Hypertension I10 Hypercholesterolemia E78.00 Obesity (BMI 30-39.9) E66.9 Low Back Pain M54.50 Hypersomnia G47.10 LFT elevation R79.89 Additional Codes PHQ-9 - 56376 - PHQ-9 Billing: Yes ([id number]) Assessment & Plan Assessment & Plan (1) Type 2 diabetes mellitus with hyperglycemia: Code(s): E11.65 - Type 2 diabetes mellitus with hyperglycemia Category: Medical Plan: Decrease the amount of carbohydrate intake, pasta, bread, rice and potatoes are all sugar and that is aside from all the sweet stuff, remember that fruits are good but they are Sweet also. Hemoglobin A1c goal of less than 6.5. Patient is diet controlled (2) Hypertension: Code(s): I10 - Essential (primary) hypertension Category: Medical Plan: Continue with blood pressure medication. Decrease salt intake and exercise on amlodipine (3) Hypercholesterolemia: Code(s): E78.00 - Pure hypercholesterolemia, unspecified Category: Medical Plan: Avoid fried foods, chicken skin, eggs, butter margarine, pastries and meat. Be it pork or beef they have a lot of cholesterol LDL goal of less than 100 and triglyceride of less than 150. (4) Obesity (BMI 30-39.9): Code(s): E66.9 - Obesity, unspecified Category: Medical Plan: Diet and exercise (5) Low Back Pain: Comment: X-ray showing spondylosis May 2023 Code(s): M54.50 - Low back pain, unspecified Category: Medical Plan: Narcotic pain meds: Is being prescribed with the understanding that these medications are potentially addictive and should be used only when absolutely necessary and must always be secured. Any remaining pills should be safely disposed off appropriately. Patient is advised that narcotics can impaired judgment and one should not drive or operate heavy machinery while taking these medications. Never share these medications with anybody and do not leave them unattended. They will not be replaced under any circumstances.. Patient's x- ray did show degenerative change. (6) Hypersomnia: Code(s): G47.10 - Hypersomnia, unspecified Category: Medical (7) LFT elevation: Code(s): R79.89 - Other specified abnormal findings of blood chemistry Category: Medical Plan History of Present Illness Health Maintenance - Hemoglobin A1c target: <6.5% - Hypertension managed with amlodipine; blood pressure well-controlled - LDL cholesterol goal: <100 mg/dL - Recommended regular eye examinations due to diabetes - Advises regular diabetes check-ups, including blood glucose monitoring - Recommended continuation and adherence to prescribed medication regimes - Discussed a heart-healthy diet and regular exercise Social History - Diet predominantly devoid of junk food; recently reduced rice intake - Scant use of alcohol: 2-3 drinks per session, 2-3 times weekly - Engages in limited physical activity recently due to cold weather conditions - Denies recreational drug use and smoking, though spouse smokes Review of Systems - Constitutional: Reports occasional fatigue - Cardiovascular: Denies chest pain, reports some pedal edema - Respiratory: No reports of respiratory issues - Gastrointestinal: No reports of nausea, vomiting, bowel irregularities; denies blood in stool - Genitourinary: Denies urination problems, needs to urinate once at night - Neurological: Denies seizures; reports occasional daytime sleepiness - Endocrine: Reports consistent diabetes management challenges - Musculoskeletal: Reports lumbar spine pain - Dermatological: No dermatological concerns reported Physical Exam - Cardiovascular- No cardiopulmonary abnormalities noted on auscultation - Musculoskeletal- Observed lower extremity swelling Results - Labs: Hemoglobin A1c 7.3%; LDL cholesterol 138 mg/dL; normal blood count; elevated liver function tests at 44 - Imaging: Lumbar spine x-ray reveals degenerative changes Plan 1. 5% with dietary modifications and exercise. His blood pressure appears well- managed with amlodipine. LDL cholesterol is advised to be controlled with a dietary approach initially, with possibilities of pharmacotherapy evaluated in follow-ups. Degenerative disc pain will be managed by limiting narcotic use and considering alternative analgesics. A sleep study is planned to assess for obstructive sleep apnea due to reported drowsiness. Repeat liver function tests, including hepatitis profiling, are ordered due to mild elevation noted, followed by an ultrasound if elevated indices persist. Regular follow-up discussions are necessary to monitor these conditions and adjust treatment plans accordingly.: Patient was informed and verbally consented to the use of an ambient scribe for clinic note documentation during this visit. Discussion Notes During the consultation, I discussed with the patient the importance of maintaining an HbA1c under 6.5% to mitigate future diabetic complications such as retinopathy and nephropathy. We reviewed the need for improved diet control and exercise to manage chronic conditions effectively. For hypercholesterolemia, dietary changes were recommended to reduce the LDL cholesterol level to under 100 mg/dL, emphasizing the risk of cardiovascular events. The need to minimize narcotic use for back pain was reviewed with advice on safer analgesic alternatives. I encouraged a sleep study given the potential obstructive sleep apnea. Liver enzyme elevation needs subsequent investigation through repeat testing and imaging. The patient was made aware of the follow-up necessity to reassess these ongoing health conditions, monitoring improvements or exacerbations. Patient Instructions - Monitor your blood sugar levels regularly and adhere strictly to dietary r ecommendations. - Continue taking amlodipine for blood pressure. - Aim to reduce the LDL cholesterol levels through diet modifications and regular physical activity. - Use oxycodone sparingly, focusing on non-narcotic pain relief where possible. - Undergo the recommended sleep study for potential sleep apnea evaluation. - Schedule follow-up blood tests, including liver function tests, and plan sub sequent checks based on results. - Avoid excess alcohol and focus on drinking water, eating healthy, and staying active. - Schedule regular eye exams and notify your playground aide of your diabetic c ondition. Orders: Orders RT home sleep study Today G47.10 - Hypersomnia, unspecified Hemoglobin A1c Today R79.89 - Other specified abnormal findings of blood chemistry Microalbumin, Random (w Creat) Today E11.65 - Type 2 diabetes mellitus with hyperglycemia, R79.89 - Other specified abnormal findings of blood chemistry Creatinine Urine Today E11.65 - Type 2 diabetes mellitus with hyperglycemia, R79.89 - Other specified abnormal findings of blood chemistry Thyroid Stimulating Hormone Today R79.89 - Other specified abnormal findings of blood chemistry Free T4 (Free Thyroxine) Today R79.89 - Other specified abnormal findings of blood chemistry Lipid Panel Today E78.00 - Pure hypercholesterolemia, unspecified, R79.89 - O ther specified abnormal findings of blood chemistry Hepatitis B,C Profile Today R79.89 - Other specified abnormal findings of blood chemistry
== END 2024-10-08 15:24 | disposition home or self-care (01) ==
LOC: HO.HMCH 13:32
PROVIDERS: PCP Internal Medicine; Visit Provider Internal Medicine
DX: E11.65 Type 2 diabetes mellitus with hyperglycemia (principal); E66.9 Obesity, unspecified; Z68.30 Body mass index [BMI] 30.0-30.9, adult; I10 Essential (primary) hypertension; E78.00 Pure hypercholesterolemia, unspecified; M54.50 Low back pain, unspecified; G47.10 Hypersomnia, unspecified; R79.89 Other specified abnormal findings of blood chemistry

== ENCOUNTER → 2024-10-08 13:32 | Outpatient (BNVA) | payer BC, SELFPAY | PROVIDERS: PCP Internal Medicine; Visit Provider Internal Medicine | DX: E11.65 Type 2 diabetes mellitus with hyperglycemia (principal); I10 Essential (primary) hypertension; E78.00 Pure hypercholesterolemia, unspecified; E66.9 Obesity, unspecified; M54.50 Low back pain, unspecified; G47.10 Hypersomnia, unspecified; R79.89 Other specified abnormal findings of blood chemistry | CPT/HCPCS: 96127 ==

== ENCOUNTER 2024-11-10 09:34 | Outpatient (REF) | payer BC, SELFPAY ==
[2024-11-10 10:32] LABS: Estimated Average Glucose 160 mg/dL; Hemoglobin A1C 213.3811 umol/L; Hemoglobin A1c % 7.2 % (<6.0); Total Hemoglobin (HGBA1C) 3877.0568 umol/L
[2024-11-10 11:24] LABS: HBc Num1 0.07 S/CO (0.00-0.79); HBsAGNum1 0.31 S/CO (0.00-0.99); Hepatitis B Core Antibody Nonreactive (Nonreactive); Hepatitis B Surface Antigen Negative (Negative); ~Hepatitis B Surface Antibody NONREACTIVE (Nonreactive); ~Hepatitis C Antibody Nonreactive (Nonreactive)
[2024-11-10 11:28] LABS: Creatinine Urine 52.06 mg/dL; Microalbumin Urine < 5.0 mg/L
[2024-11-10 11:30] LABS: Cholesterol 190 mg/dL (<200); Free T4 (Free Thyroxine) 0.89 ng/dL (0.71-1.85); Thyroid Stimulating Hormone 3.13 uIU/mL (0.32-4.0); Triglycerides 105 mg/dL (<150)
[2024-11-10 11:48] LABS: HDL Cholesterol 41 mg/dL (>40); LDL Cholesterol Calculated 128 mg/dL (<100)
== END 2024-11-10 09:35 | disposition home or self-care (01) ==
LOC: HO.LAB 09:34
PROVIDERS: PCP Internal Medicine; Visit Provider Internal Medicine
DX: R79.89 Other specified abnormal findings of blood chemistry (principal); E11.65 Type 2 diabetes mellitus with hyperglycemia; E78.00 Pure hypercholesterolemia, unspecified
CPT/HCPCS: 36415; 80061; 82043; 82570; 83036; 84439; 84443; 86704; 86706; 86803; 87340

== ENCOUNTER 2024-11-12 13:26 | Outpatient (AMB) | payer BC, SELFPAY ==
--- NOTE | 2024-11-12 13:31 | MHC.PC.OV ---
Vital Signs 11/12/24 13:32 Height 5 ft 11 in Weight 208 lb BMI 29.0 BP 130/68 Blood Pressure Location Lt brachial Position Sitting Pulse 81 Pulse Source Pulse Oximeter Pulse Oximetry (%) 98 Oxygen Delivery Method Room Air Intake Visit Reasons: med management Allergies No Known Allergies Allergy (Verified 11/12/24 13:32) Tobacco use date assessed: 09/11/24 Fall risk assessment: No Falls in past year Last assessed Fall Risk: 11/12/24 Dental Screening Dental Screen Date: 07/16/24 [facility] Medical History (Updated 11/12/24 @ 14:03 by Yelena Braun MD) Apnea Surgical History History of vasectomy Family History Father Heart disease Mother Diabetes Brother No problems noted. Sister No problems noted. Daughter No problems noted. Daughter No problems noted. Social History (Updated 10/08/24 @ 14:35 by Yelena Braun MD) Housing: House Alcohol intake: current Alcohol intake frequency: a few times a week Alcohol type: beer Comment: 2-3x a week 2-3 drinks Patient Tobacco Use Status: Never used Tobacco Tobacco use type: Cigarette e-Cigarette/Vaping Use: Never Used Second Hand Smoke Exposure: Yes service: No Current occupational status: employed Current occupational exposures/hazards: No Cognitive needs: No Hearing needs: No Vision needs: No Questionnaire PHQ-9 Over the last 2 weeks, how often have you been bothered by any of the following problems? 1. Little interest or pleasure in doing things: not at all 2. Feeling down, depressed, or hopeless: not at all 3. Trouble falling or staying asleep, or sleeping too much: not at all 4. Feeling tired or having little energy: not at all 5. Poor appetite or overeating: not at all 6. Feeling bad about yourself - or that you are a failure or have let yourself or your family down: not at all 7. Trouble concentrating on things, such as reading the newspaper or watching television: not at all 8. Moving or speaking so slowly that other people could have noticed. Or the opposite - being so fidgety or restless that you have been moving around a lot more than usual: not at all 9. Thoughts that you would be better off or of hurting yourself in some way: not at all Total score: 0 Depression Screening Interpretation: Negative Depression Screening Done: Yes 82228 - PHQ-9 Billing: Yes Source: Developed by Drs. Scot Ruiz, Jessica Shelton, Michael Martinez and colleagues, with an educational tito from [employer] Thrive Questionnaire Date Thrive assessed: 07/16/24 SUZANNE-7 AMB Questionnaire SUZANNE-7 Date SUZANNE - 7 assessed: 07/16/24 Source: Developed by Drs. Scot Ruiz, Jessica Shelton, Michael Martinez and colleagues, with an educational tito from [employer] Physical exam (Primary Care) Vital Signs: Last Vital Signs Pulse 81 11/12/24 13:32 BP 130/68 11/12/24 13:32 Pulse Ox 98 11/12/24 13:32 Oxygen Delivery Method Room Air 11/12/24 13:32 BMI result Body Mass Index 29.0 Tobacco/Smoking Status: Tobacco use Status Tobacco use date assessed 09/11/24 11/12/24 13:32 Patient Tobacco Use Status Never used Tobacco 11/12/24 13:32 Tobacco use type Cigarette 11/12/24 13:32 e-Cigarette/Vaping Use Never Used 11/12/24 13:32 PHQ-9: PHQ-9 Score PHQ-9: Total score 0 11/12/24 13:56 Depression Screening Interpretation: Negative Thrive Assessment: Date of Thrive Assessment Date Thrive assessed 07/16/24 11/12/24 13:32 Const General: alert; No acute distress Eyes Conjunctivae: conjunctivae normal Resp Auscultation: clear to auscultation bilaterally Cardio Rate: regular rate Rhythm: regular rhythm GI Inspection: Yes normal to inspection Extrem General: Yes normal to inspection and No edema Coding Level of Care Code Est Pt Level 4 (11492) Complex EM visit Add On G2211 Diagnoses Type 2 diabetes mellitus with hyperglycemia E11.65 Hypertension I10 Hypercholesterolemia E78.00 LFT elevation R79.89 Low Back Pain M54.50 Overweight (BMI 25.0-29.9) E66.3 Colon cancer screening Z12.11 Additional Codes PHQ-9 - 00505 - PHQ-9 Billing: Yes ([id number]) Assessment & Plan Assessment & Plan (1) Type 2 diabetes mellitus with hyperglycemia: Code(s): E11.65 - Type 2 diabetes mellitus with hyperglycemia Category: Medical Plan: Decrease the amount of carbohydrate intake, pasta, bread, rice and potatoes are all sugar and that is aside from all the sweet stuff, remember that fruits are good but they are Sweet also. Hemoglobin A1c goal of less than 6.5. Patient on diet control and not really on in controlled (2) Hypertension: Code(s): I10 - Essential (primary) hypertension Category: Medical Plan: Continue with blood pressure medication. Decrease salt intake and exercise on amlodipine 10 mg once a day blood pressure is controlled (3) Hypercholesterolemia: Code(s): E78.00 - Pure hypercholesterolemia, unspecified Category: Medical Plan: Avoid fried foods, chicken skin, eggs, butter margarine, pastries and meat. Be it pork or beef they have a lot of cholesterol LDL goal of less than 100 and triglyceride of less than 150 (4) LFT elevation: Code(s): R79.89 - Other specified abnormal findings of blood chemistry Category: Medical Plan: Low-fat diet and exercise (5) Low Back Pain: Comment: X-ray showing spondylosis May 2023 Code(s): M54.50 - Low back pain, unspecified Category: Medical Plan: Narcotic pain meds: Is being prescribed with the understanding that these medications are potentially addictive and should be used only when absolutely necessary and must always be secured. Any remaining pills should be safely disposed off appropriately. Patient is advised that narcotics can impaired judgment and one should not drive or operate heavy machinery while taking these medications. Never share these medications with anybody and do not leave them unattended. They will not be replaced under any circumstances. (6) Overweight (BMI 25.0-29.9): Code(s): E66.3 - Overweight Category: Medical Plan: Diet and exercise (7) Colon cancer screening: Code(s): Z12.11 - Encounter for screening for malignant neoplasm of colon Category: Medical Plan: History of Present Illness The patient is a 64-year-old male presenting with a follow-up for management of chronic conditions including hypertension, diabetes mellitus, and hypercholesterolemia. He reports a 9-pound weight loss since his last check-up. Notably, he has a history of chronic low back pain due to lumbar spondylosis. His hypertension remains controlled with a regimen of amlodipine 10 mg daily. During a recent laboratory evaluation in July, it was noted that his hemoglobin A1c was 7.2%, with a goal to achieve below 6.5%. This suggests that his blood glucose levels need further management, although he is currently managing the condition with diet control alone. His LDL cholesterol level was also elevated at 128 mg/dL, necessitating stricter lipid control, with a target level of less than 100 mg/dL for optimal clinical outcomes. The patient is keen on managing these levels with continued lifestyle adjustments. Health Maintenance - Discussion on dietary changes: advised low-fat diet, control of carbohydrate intake, and reducing consumption of high-sugar foods. - Encouraged ongoing weight loss efforts and regular exercise as part of managing diabetes and cholesterol levels. - Reviewed the importance of screening for colorectal cancer using a home-based stool test for blood DNA; encouraged to undergo testing. - Discussed liver health monitoring; recommended an ultrasound for liver evaluation due to previous elevated liver function tests. - Emphasized the importance of regular monitoring of blood glucose and cholesterol levels, with a follow-up test scheduled in three months. - Discussed potential shingles vaccination and its availability; provided information on benefits despite not being hereditary. Social History - Overweight and actively attempting weight loss. - Reports a dietary preference for high-sugar and carbohydrate-rich foods like bread and figs but working to reduce intake. - Engages in dietary control as part of managing diabetes. - Denies history of smoking or alcohol consumption. - Mentions a preference for not using medications for diabetes control currently, prefers to manage with lifestyle changes. Review of Systems - Cardiovascular: Denies chest pain, palpitations, or dyspnea. Reports controlled high blood pressure. - Endocrine: Reports diabetes management through diet control. Denies any recent episodes of hypoglycemia. - Gastrointestinal: Denies abdominal pain, changes in bowel habits, or gastrointestinal bleeding. - Musculoskeletal: Reports chronic low back pain due to lumbar spondylosis. - General: Reports weight loss and current overweight status. Physical Exam Results - Labs: Hemoglobin A1c at 7.2%, LDL cholesterol at 128 mg/dL. - Screening tests: Urine analysis was normal; hepatitis profile negative; prostate-specific antigen was performed in July 2024. Plan 1. 5%. He will manage lipid levels through dietary adjustments and exercise, aiming for LDL under 100 mg/dL. Follow-up in three months will evaluate lipid and glucose control. A liver ultrasound was recommended to assess liver health. Preventive health actions include considering colorectal cancer screening with a stool test and discussing the potential benefits of a shingles vaccine.: Patient was informed and verbally consented to the use of an ambient scribe for clinic note documentation during this visit. Discussion Notes I discussed the current status of the patient's hypertension, diabetes, and cholesterol, emphasizing the need for lifestyle changes including diet and exercise to achieve glycemic and lipid control. We reviewed his hemoglobin A1c of 7.2% and LDL cholesterol of 128 mg/dL, setting firm goals below 6.5% and 100 mg/dL, respectively. I advised that medication for diabetes and hypercholesterolemia might become necessary if lifestyle changes do not suffice. We agreed to re-evaluate these metrics in three months. I also discussed preventive measures such as colorectal cancer screening with a stool test and the safety and potential benefits of the shingles vaccine. Consent for a liver ultrasound was provided to monitor liver health. The patient expressed understanding and willingness to make adjustments to his diet to improve his health. Patient Instructions - Continue current blood pressure medication as prescribed. - Follow a low-fat diet and reduce sugar and carbohydrate intake. - Engage in regular physical exercise to aid in weight loss. - Schedule a colon cancer screening using the at-home test kit. - Await a call to schedule an abdominal ultrasound. - Monitor blood glucose levels regularly; aim to lower A1c below 6.5%. - Reassess cholesterol and glucose levels in three months. - Consider getting the shingles vaccine, available at pharmacies. - Contact the office if symptoms change or for any questions about your health plan. Orders: Orders Comprehensive Met. Panel 3 Months E11.65 - Type 2 diabetes mellitus with hyperglycemia Lipid Panel 3 Months E11.65 - Type 2 diabetes mellitus with hyperglycemia, E78.00 - Pure hypercholesterolemia, unspecified Complete Blood Count Auto Diff 3 Months E11.65 - Type 2 diabetes mellitus with hyperglycemia Hemoglobin A1c 3 Months E11.65 - Type 2 diabetes mellitus with hyperglycemia US abdomen complete Today R79.89 - Other specified abnormal findings of blood chemistry Referrals Cologuard Test Z12.11 - Encounter for screening for malignant neoplasm of colon
[2024-11-12 13:32] VITALS: BP 130/68; PULSE 81; O2SAT 98; BMI 29.0
== END 2024-11-12 15:00 | disposition home or self-care (01) ==
LOC: HO.HMCH 13:27
PROVIDERS: PCP Internal Medicine; Visit Provider Internal Medicine
DX: E11.65 Type 2 diabetes mellitus with hyperglycemia (principal); I10 Essential (primary) hypertension; E78.00 Pure hypercholesterolemia, unspecified; R79.89 Other specified abnormal findings of blood chemistry; M54.50 Low back pain, unspecified; E66.3 Overweight; Z12.11 Encounter for screening for malignant neoplasm of colon

== ENCOUNTER → 2024-11-12 13:26 | Outpatient (BNVA) | payer BC, SELFPAY | PROVIDERS: PCP Internal Medicine; Visit Provider Internal Medicine | DX: E11.65 Type 2 diabetes mellitus with hyperglycemia (principal); I10 Essential (primary) hypertension; E78.00 Pure hypercholesterolemia, unspecified; R79.89 Other specified abnormal findings of blood chemistry; M54.50 Low back pain, unspecified; E66.3 Overweight; Z68.29 Body mass index [BMI] 29.0-29.9, adult | CPT/HCPCS: 96127 ==

== ENCOUNTER 2024-12-03 14:54 | Outpatient (AMB) | payer BC, SELFPAY ==
--- NOTE | 2024-12-03 14:59 | MHC.PC.OV ---
Vital Signs 12/03/24 15:02 Height 5 ft 11 in Weight 209 lb 4 oz BMI 29.2 BP 110/62 Blood Pressure Location Lt brachial Position Sitting Pulse 73 Pulse Source Pulse Oximeter Temp 97.1 F Temp Source Temporal Artery Scan Pulse Oximetry (%) 96 Oxygen Delivery Method Room Air Intake Visit Reasons: 8 week f/u Intake Note: Patient is here to follow up on HTN, Hypercholesterolemia, DM. Shopper Marketing Manager Required: No Assistant Commissioner: Not Required per policy Accompanied by: Self / Same As Patient Allergies No Known Allergies Allergy (Verified 12/03/24 15:24) Medication List - Last Reconciled 12/03/24 by Liz Talavera PA-C amlodipine 10 mg PO DAILY cyclobenzaprine 10 mg PO TID PRN oxycodone 5 mg PO Q6H PRN 28 days sildenafil 50 mg PO DAILY PRN Tobacco use date assessed: 12/03/24 Fall risk assessment: No Falls in past year Last assessed Fall Risk: 12/03/24 Dental Screening Dental Screen Date: 07/16/24 HPI 8 week f/u HPI Details The patient is a 64-year-old male presenting with a follow-up for medication refills and management of chronic conditions. He has a history of hypertension, currently managed with medication, and reports significant improvement in blood pressure levels. The patient has elevated Hemoglobin A1c, indicating diabetes management concerns, and has been actively working on dietary modifications and increased exercise. Despite lifestyle changes, the patient has experienced weight gain, which may be due to increased muscle mass from physical activities such as walking daily for an hour. The patient experiences chronic back pain, exacerbated by recent lifting activities. No symptoms of chest pain, shortness of breath, or gastrointestinal issues were reported. [facility] Medical History (Updated 11/12/24 @ 14:03 by Yelena Braun MD) Apnea Surgical History History of vasectomy Family History Father Heart disease Mother Diabetes Brother No problems noted. Sister No problems noted. Daughter No problems noted. Daughter No problems noted. Social History Housing: House Alcohol intake: current Alcohol intake frequency: a few times a week Alcohol type: beer Comment: 2-3x a week 2-3 drinks Patient Tobacco Use Status: Never used Tobacco Tobacco use type: Cigarette e-Cigarette/Vaping Use: Never Used Second Hand Smoke Exposure: Yes service: No Current occupational status: employed Current occupational exposures/hazards: No Cognitive needs: No Hearing needs: No Vision needs: No Questionnaire PHQ-9 Over the last 2 weeks, how often have you been bothered by any of the following problems? 1. Little interest or pleasure in doing things: not at all 2. Feeling down, depressed, or hopeless: not at all 3. Trouble falling or staying asleep, or sleeping too much: not at all 4. Feeling tired or having little energy: not at all 5. Poor appetite or overeating: not at all 6. Feeling bad about yourself - or that you are a failure or have let yourself or your family down: not at all 7. Trouble concentrating on things, such as reading the newspaper or watching television: not at all 8. Moving or speaking so slowly that other people could have noticed. Or the opposite - being so fidgety or restless that you have been moving around a lot more than usual: not at all 9. Thoughts that you would be better off or of hurting yourself in some way: not at all Total score: 0 Depression Screening Interpretation: Negative Depression Screening Done: Yes Source: Developed by Drs. Scot Ruiz, Jessica Shelton, Michael Martinez and colleagues, with an educational tito from [employer] Thrive Questionnaire Date Thrive assessed: 07/16/24 I am a: Patient What is your living situation today?: I have a steady place to live Within the past 12 months, did the food you bought not last and you didn't have the money to get more?: Never true Within the past 12 months, did you worry whether your food would run out before you got money to buy more?: Never true Do you have trouble paying for medicines?: I choose not to answer this question Do you have trouble getting transportation to medical appointments?: No Do you have trouble paying your heating and electricity bill?: No Do you have trouble taking care of your child, family member or friend?: No Do you have trouble with day-to-day activities such as bathing, preparing meals, shopping, managing finances, etc.?: No Are you currently unemployed and looking for a job?: No Are you interested in more education?: No Please select the resources that you would like help with: None Currently or been in a relationship where the following occur: No concerns reported THRIVE Score: 0 AUDIT C Alcohol Use Questionnaire (AUDIT-C) 1. How often do you have a drink containing alcohol?: 2-4 times a month Total Score: 2 SUZANNE-7 AMB Questionnaire SUZANNE-7 Date SUZANNE - 7 assessed: 07/16/24 Feeling nervous, anxious, or on edge: 0 = Not at all Not being able to stop or control worryin = Not at all Worrying too much about different things: 0 = Not at all Trouble relaxin = Not at all Being so restless that it is hard to sit still: 0 = Not at all Becoming easily annoyed or irritable: 0 = Not at all Feeling afraid as if something awful might happen: 0 = Not at all Total SUZANNE-7 score (0-4 normal; 5-9 mild; 10-14 moderate; 15-21 severe): 0 Source: Developed by Drs. Scot Ruiz, Jessica Shelton, Mcihael Martinez and colleagues, with an educational tito from [employer] Review of Systems Const Denies body aches, Denies chills, Denies fever(s), Denies headache(s) and Denies poor appetite Eyes Reports no additional complaints ENT Denies dizziness and Denies headache(s) Card Denies chest pain, Denies lightheadedness and Denies dyspnea Resp Denies cough and Denies dyspnea GI Denies abdominal pain, Denies nausea and Denies vomiting Reports no additional complaints Musc Denies abnormal gait and Reports back pain Skin/Breast Reports system reviewed and no additional complaints, except as documented Neuro Denies abnormal gait, Denies dizziness and Denies headache(s) Psych Reports no additional complaints Physical exam (Primary Care) Vital Signs: Last Vital Signs Temp 97.1 F 12/03/24 15:02 Pulse 73 12/03/24 15:02 BP 110/62 12/03/24 15:02 Pulse Ox 96 12/03/24 15:02 Oxygen Delivery Method Room Air 12/03/24 15:02 BMI result Body Mass Index 29.2 Tobacco/Smoking Status: Tobacco use Status Tobacco use date assessed 12/03/24 12/03/24 15:05 Patient Tobacco Use Status Never used Tobacco 12/03/24 15:00 Tobacco use type Cigarette 12/03/24 15:00 e-Cigarette/Vaping Use Never Used 12/03/24 15:00 PHQ-9: PHQ-9 Score PHQ-9: Total score 0 12/03/24 15:00 Depression Screening Interpretation: Negative Thrive Assessment: Date of Thrive Assessment Date Thrive assessed 07/16/24 12/03/24 15:00 Currently or been in a relationship where the following occur: No concerns reported Const General: cooperative, healthy appearing, comfortable and no acute distress Orientation/consciousness: patient oriented x3 HENMT Head: Yes normocephalic Ears: hearing grossly normal bilaterally General nose exam: Normal external nose present Eyes General: appearance normal, both eyes and all related structures Conjunctivae: conjunctivae normal Neck Neck: Yes full ROM and Yes no lymphadenopathy Resp Effort & Inspection: normal respiratory effort Auscultation: clear to auscultation bilaterally, no crackles, no rales, no rhonchi and no wheezes Cardio Rate: regular rate Rhythm: regular rhythm Skin General skin exam: no rashes or lesions noted Neuro General: patient oriented x3 Gait exam (Neuro): Normal gait present Extrem General: Yes normal to inspection, Yes full ROM and No edema Psych Affect: normal affect Attitude: cooperative Insight: Good insight present (Psych) Judgement: Good judgement present (Psych) Coding Level of Care Code Est Pt Level 3 (83155) Diagnoses Type 2 diabetes mellitus with hyperglycemia E11.65 Hypertension I10 Hypercholesterolemia E78.00 LFT elevation R79.89 Overweight (BMI 25.0-29.9) E66.3 Low Back Pain M54.50 Assessment & Plan Assessment & Plan (1) Type 2 diabetes mellitus with hyperglycemia: Code(s): E11.65 - Type 2 diabetes mellitus with hyperglycemia Category: Medical Plan: Decrease the amount of carbohydrate intake, pasta, bread, rice and potatoes are all sugar and that is aside from all the sweet stuff, remember that fruits are good but they are Sweet also. Hemoglobin A1c goal of less than 7%. Patient on diet control not currently on medication. (2) Hypertension: Code(s): I10 - Essential (primary) hypertension Category: Medical Plan: Continue with blood pressure medication. Decrease salt intake and exercise on amlodipine 10 mg once a day blood pressure is controlled (3) Hypercholesterolemia: Code(s): E78.00 - Pure hypercholesterolemia, unspecified Category: Medical Plan: Avoid foods that are high in cholesterol such as red meat, fried foods, eggs and baked goods. Triglyceride goal of less than 150 and LDL goal of less than 100. (4) LFT elevation: Code(s): R79.89 - Other specified abnormal findings of blood chemistry Category: Medical Plan: Low-fat diet and exercise (5) Overweight (BMI 25.0-29.9): Code(s): E66.3 - Overweight Category: Medical Plan: Healthy diet and regular exercise is encouraged. (6) Low Back Pain: Comment: X-ray showing spondylosis May 2023 Code(s): M54.50 - Low back pain, unspecified Category: Medical Plan: Patient is on oxycodone 5 mg as needed for low back pain. Prescription was refilled today and advised patient he needs to continue to follow up monthly to maintain this prescription and he understands. Plan This note was constructed using voice recognition software. While every effort has been made to ensure accuracy and steward/stewardess club car, still areas may have been included sometimes these areas may affect the content or meeting of the given symptoms. Total time spent caring for the patient today was 20 minutes. This includes time spent before the visit reviewing the chart, time spent during the visit, and time spent after the visit and documentation. Patient was informed and verbally consented to the use of an ambient scribe for clinic note documentation during this visit. Medications: Refilled cyclobenzaprine 10 mg PO TID PRN 30 tabs 0RF for muscle spasm R79.89 - Other specified abnormal findings of blood chemistry oxycodone 5 mg PO Q6H 28 days PRN 112 tabs 0RF pain R79.89 - Other specified abnormal findings of blood chemistry
[2024-12-03 15:02] VITALS: BP 110/62; PULSE 73; TEMP 36.2; O2SAT 96; BMI 29.2
== END 2024-12-03 15:36 | disposition home or self-care (01) ==
LOC: HO.HMCH 14:55
PROVIDERS: PCP Internal Medicine
DX: E11.65 Type 2 diabetes mellitus with hyperglycemia (principal); I10 Essential (primary) hypertension; E78.00 Pure hypercholesterolemia, unspecified; R79.89 Other specified abnormal findings of blood chemistry; E66.3 Overweight; M54.50 Low back pain, unspecified

== ENCOUNTER → 2024-12-03 14:54 | Outpatient (BNVA) | payer BC, SELFPAY | PROVIDERS: PCP Internal Medicine ==

== ENCOUNTER → 2024-12-09 09:45 | Outpatient (REF) | payer BC, SELFPAY | LOC: HO.SL 09:45 | PROVIDERS: PCP Internal Medicine; Visit Provider Internal Medicine | DX: G47.33 Obstructive sleep apnea (adult) (pediatric) (principal); G47.10 Hypersomnia, unspecified; R06.83 Snoring | CPT/HCPCS: 95806 ==

== ENCOUNTER → 2024-12-09 09:54 | Outpatient (BNV) | payer BC, SELFPAY | PROVIDERS: PCP Internal Medicine; Visit Provider Internal Medicine | DX: G47.33 Obstructive sleep apnea (adult) (pediatric) (principal) | CPT/HCPCS: 95806 ==

== ENCOUNTER 2024-12-31 10:45 | Outpatient (AMB) | payer BC, SELFPAY ==
[2024-12-31 10:54] VITALS: BP 120/84; PULSE 69; O2SAT 98; BMI 28.5
--- NOTE | 2024-12-31 10:54 | MHC.PC.OV ---
Vital Signs 12/31/24 10:54 Height 5 ft 11 in Weight 204 lb 2 oz BMI 28.5 BP 120/84 Blood Pressure Location Lt brachial Position Sitting Pulse 69 Pulse Source Pulse Oximeter Pulse Oximetry (%) 98 Oxygen Delivery Method Room Air Intake Visit Reasons: med management [employer] Required: No Accompanied by: Self / Same As Patient Allergies No Known Allergies Allergy (Verified 12/31/24 10:55) Medication List - Last Reconciled 12/31/24 by Yelena Braun MD amlodipine 10 mg PO DAILY cyclobenzaprine 10 mg PO TID PRN oxycodone 5 mg PO Q6H PRN 28 days sildenafil 50 mg PO DAILY PRN Tobacco use date assessed: 12/31/24 Fall risk assessment: No Falls in past year Last assessed Fall Risk: 12/31/24 Dental Screening Dental Screen Date: 12/31/24 Did you have a dental visit in the last 12 months?: Yes Did you have a dental problem in the last 6 months where you did not have access to dental care?: No Was dental information given to patient?: Patient has dentist [facility] Medical History (Updated 11/12/24 @ 14:03 by Yelena Braun MD) Apnea Surgical History History of vasectomy Family History Father Heart disease Mother Diabetes Brother No problems noted. Sister No problems noted. Daughter No problems noted. Daughter No problems noted. Social History Housing: House Alcohol intake: current Alcohol intake frequency: a few times a week Alcohol type: beer Comment: 2-3x a week 2-3 drinks Patient Tobacco Use Status: Never used Tobacco Tobacco use type: Cigarette e-Cigarette/Vaping Use: Never Used Second Hand Smoke Exposure: Yes service: No Current occupational status: employed Current occupational exposures/hazards: No Cognitive needs: No Hearing needs: No Vision needs: No Questionnaire PHQ-9 Over the last 2 weeks, how often have you been bothered by any of the following problems? 1. Little interest or pleasure in doing things: not at all 2. Feeling down, depressed, or hopeless: not at all 3. Trouble falling or staying asleep, or sleeping too much: not at all 4. Feeling tired or having little energy: not at all 5. Poor appetite or overeating: not at all 6. Feeling bad about yourself - or that you are a failure or have let yourself or your family down: not at all 7. Trouble concentrating on things, such as reading the newspaper or watching television: not at all 8. Moving or speaking so slowly that other people could have noticed. Or the opposite - being so fidgety or restless that you have been moving around a lot more than usual: not at all 9. Thoughts that you would be better off or of hurting yourself in some way: not at all Total score: 0 Depression Screening Interpretation: Negative Depression Screening Done: Yes Source: Developed by Drs. Scot Ruiz, Jessica Shelton, Michael Martinez and colleagues, with an educational tito from [employer]. Thrive Questionnaire Date Thrive assessed: 12/31/24 I am a: Patient What is your living situation today?: I have a steady place to live Within the past 12 months, did the food you bought not last and you didn't have the money to get more?: Never true Within the past 12 months, did you worry whether your food would run out before you got money to buy more?: Never true Do you have trouble paying for medicines?: I choose not to answer this question Do you have trouble getting transportation to medical appointments?: No Do you have trouble paying your heating and electricity bill?: No Do you have trouble taking care of your child, family member or friend?: No Do you have trouble with day-to-day activities such as bathing, preparing meals, shopping, managing finances, etc.?: No Are you currently unemployed and looking for a job?: No Are you interested in more education?: No Please select the resources that you would like help with: None Currently or been in a relationship where the following occur: No concerns reported THRIVE Score: 0 AUDIT C Alcohol Use Questionnaire (AUDIT-C) 1. How often do you have a drink containing alcohol?: 2-4 times a month 3. How often do you have six or more drinks on one occasion?: Never Total Score: 2 SUZANNE-7 AMB Questionnaire SUZANNE-7 Date SUZANNE - 7 assessed: 12/31/24 Feeling nervous, anxious, or on edge: 0 = Not at all Not being able to stop or control worryin = Not at all Worrying too much about different things: 0 = Not at all Trouble relaxin = Not at all Being so restless that it is hard to sit still: 0 = Not at all Becoming easily annoyed or irritable: 0 = Not at all Feeling afraid as if something awful might happen: 0 = Not at all Total SUZANNE-7 score (0-4 normal; 5-9 mild; 10-14 moderate; 15-21 severe): 0 Source: Developed by Drs. Scot Ruiz, Jessica Shelton, Michael Martinez and colleagues, with an educational tito from [employer]. Physical exam (Primary Care) Vital Signs: Last Vital Signs Pulse 69 12/31/24 10:54 BP 120/84 12/31/24 10:54 Pulse Ox 98 12/31/24 10:54 Oxygen Delivery Method Room Air 12/31/24 10:54 BMI result Body Mass Index 28.5 Tobacco/Smoking Status: Tobacco use Status Tobacco use date assessed 12/31/24 12/31/24 10:59 Patient Tobacco Use Status Never used Tobacco 12/31/24 10:59 Tobacco use type Cigarette 12/31/24 10:59 e-Cigarette/Vaping Use Never Used 12/31/24 10:59 PHQ-9: PHQ-9 Score PHQ-9: Total score 0 12/31/24 11:35 Depression Screening Interpretation: Negative Thrive Assessment: Date of Thrive Assessment Date Thrive assessed 12/31/24 12/31/24 10:59 Currently or been in a relationship where the following occur: No concerns reported Const General: alert; No acute distress Eyes Conjunctivae: conjunctivae normal Resp Auscultation: clear to auscultation bilaterally Cardio Rate: regular rate Rhythm: regular rhythm GI Inspection: Yes normal to inspection Extrem General: Yes normal to inspection and No edema Coding Level of Care Code Est Pt Level 4 (06861) Complex EM visit Add On G2211 Diagnoses Type 2 diabetes mellitus with hyperglycemia E11.65 Hypercholesterolemia E78.00 Hypertension I10 Overweight (BMI 25.0-29.9) E66.3 Low Back Pain M54.50 Assessment & Plan Assessment & Plan (1) Type 2 diabetes mellitus with hyperglycemia: Code(s): E11.65 - Type 2 diabetes mellitus with hyperglycemia Category: Medical Plan: Decrease the amount of carbohydrate intake, pasta, bread, rice and potatoes are all sugar and that is aside from all the sweet stuff, remember that fruits are good but they are Sweet also. Hemoglobin A1c goal of less than 6.5 patient is on diet only (2) Hypercholesterolemia: Code(s): E78.00 - Pure hypercholesterolemia, unspecified Category: Medical Plan: Avoid fried foods, chicken skin, eggs, butter margarine, pastries and meat. Be it pork or beef they have a lot of cholesterol LDL goal of less than 100 and triglyceride of less than 150 patient on diet only (3) Hypertension: Code(s): I10 - Essential (primary) hypertension Category: Medical Plan: Continue with blood pressure medication. Decrease salt intake and exercise on amlodipine (4) Overweight (BMI 25.0-29.9): Code(s): E66.3 - Overweight Category: Medical Plan: Diet and exercise (5) Low Back Pain: Comment: X-ray showing spondylosis May 2023 Code(s): M54.50 - Low back pain, unspecified Category: Medical Plan: Narcotic pain meds: Is being prescribed with the understanding that these medications are potentially addictive and should be used only when absolutely necessary and must always be secured. Any remaining pills should be safely disposed off appropriately. Patient is advised that narcotics can impaired judgment and one should not drive or operate heavy machinery while taking these medications. Never share these medications with anybody and do not leave them unattended. They will not be replaced under any circumstances. Plan History of Present Illness The patient is a 64-year-old male presenting for follow-up of multiple chronic conditions including diabetes mellitus, hypertension, hypercholesterolemia, and obstructive sleep apnea. The patient has a history of diabetes mellitus with a recent hemoglobin A1c of 7.2% in November, indicating suboptimal control. He is currently managing his diabetes with dietary modifications only, aiming for an A1c goal of less than 6.5%. Hypertension is being managed with amlodipine, and the patient reports good blood pressure control. The patient also has hypercholesterolemia, with the last LDL measurement in July showing a level of 128 mg/dL. He is targeting an LDL goal of less than 100 mg/dL through dietary changes. The patient reports a history of erectile dysfunction and low back pain, for which he uses muscle relaxants and oxycodone as needed. He underwent a sleep study in December, which confirmed mild obstructive sleep apnea with an AHI of 6.9, primarily positional in nature. Conservative management was recommended, including positional therapy to avoid lying flat. Preventative care includes a recent negative Cologuard test for colon cancer screening, which is valid for three years. Health Maintenance - Colon cancer screening: Negative Cologuard test, valid for three years - Weight management: Patient aims to reduce weight below 200 pounds - Shingles vaccination: Discussed and recommended Social History - Exercise: Patient reports walking regularly, though less during recent vacation - Weight management: Patient is actively working on weight reduction Review of Systems - Cardiovascular: Denies chest pain, reports good blood pressure control - Respiratory: Reports excessive snoring, denies dyspnea - Gastrointestinal: Denies constipation, reports normal bowel movements - Genitourinary: Denies urinary issues, reports normal urination Physical Exam - Cardiovascular: Heart sounds auscultated, no abnormalities noted - Respiratory: Lung sounds auscultated, no abnormalities noted Results - Labs: Hemoglobin A1c in November was 7.2% - Labs: LDL cholesterol in July was 128 mg/dL - Tests: Sleep study in December showed mild obstructive sleep apnea with AHI of 6.9 - Screening: Cologuard test in December was negative Plan The management plan for diabetes mellitus includes maintaining dietary modifications with the goal of reducing hemoglobin A1c to below 6.5%. For hypertension, the patient will continue on amlodipine, with regular monitoring of blood pressure to ensure it remains controlled. Hypercholesterolemia management involves dietary changes aimed at reducing LDL cholesterol to below 100 mg/dL. The patient is encouraged to continue weight loss efforts, targeting a weight below 200 pounds. For obstructive sleep apnea, conservative management with positional therapy is advised, particularly avoiding lying flat to reduce apnea episodes. The patient is also advised to consider an ENT evaluation if snoring persists as a significant issue. Preventative care includes a negative Cologuard test, with the next screening due in three years. Shingles vaccination is recommended to prevent future complications. Patient was informed and verbally consented to the use of an ambient scribe for clinic note documentation during this visit. Discussion Notes During the visit, we discussed the management of diabetes mellitus with a focus on dietary modifications to achieve an A1c goal of less than 6.5%. We also reviewed the importance of maintaining blood pressure control with amlodipine and dietary changes to manage hypercholesterolemia. For obstructive sleep apnea, I recommended conservative management with positional therapy and suggested an ENT evaluation if snoring remains problematic. Preventative care measures were discussed, including the negative Cologuard test and the recommendation for shingles vaccination to prevent future complications. Patient Instructions - Continue dietary modifications to manage diabetes and aim for an A1c below 6.5%. - Take amlodipine as prescribed and monitor blood pressure regularly. - Follow dietary changes to reduce LDL cholesterol below 100 mg/dL. - Continue weight loss efforts to achieve a weight below 200 pounds. - Practice positional therapy for sleep apnea, avoiding lying flat. - Consider an ENT evaluation if snoring persists. - Schedule next colon cancer screening in three years. - Consider getting the shingles vaccination. Medications: Refilled cyclobenzaprine 10 mg PO TID PRN 30 tabs 0RF for muscle spasm R79.89 - Other specified abnormal findings of blood chemistry oxycodone 5 mg PO Q6H PRN 112 tabs 0RF pain 28 days R79.89 - Other specified abnormal findings of blood chemistry
== END 2024-12-31 11:50 | disposition home or self-care (01) ==
LOC: HO.HMCH 10:46
PROVIDERS: PCP Internal Medicine; Visit Provider Internal Medicine
DX: E11.65 Type 2 diabetes mellitus with hyperglycemia (principal); E78.00 Pure hypercholesterolemia, unspecified; I10 Essential (primary) hypertension; E66.3 Overweight; M54.50 Low back pain, unspecified

== ENCOUNTER → 2024-12-31 10:45 | Outpatient (BNVA) | payer BC, SELFPAY | PROVIDERS: PCP Internal Medicine; Visit Provider Internal Medicine | DX: Z13.89 Encounter for screening for other disorder (principal) ==

== ENCOUNTER 2025-01-30 11:12 | Outpatient (REF) | payer BC, SELFPAY ==
--- NOTE | ~2025-01-30 | US_ITS ---
EXAMINATION: US ABDOMEN COMPLETE CLINICAL INFORMATION: Abnormal blood chemistries. COMPARISON: None available. TECHNIQUE: Real-time imaging of the abdominal viscera. FINDINGS: PANCREAS: Largely obscured by bowel gas. Imaged aspects are normal. ABDOMINAL AORTA: The proximal, mid, and distal segments are normal in caliber. INFERIOR VENA CAVA: Visualized portions are normal. LIVER: The liver is normal in size. Right hepatic lobe measures 14.5 cm in length. The liver contour is normal. Parenchymal echogenicity is normal. No focal hepatic lesion. There is no intrahepatic biliary duct dilatation seen. GALLBLADDER: The gallbladder is physiologically distended without evidence of stones, sludge, polyps, wall thickening or pericholecystic fluid. COMMON BILE DUCT: Normal in caliber measuring 0.4 cm in diameter. RIGHT KIDNEY: No hydronephrosis. No renal calculi or suspicious focal parenchymal lesions. The kidney measures 11.1 cm in maximum dimension. There is an upper pole simple cyst measuring 1.7 x 1.0 x 1.9 cm. LEFT KIDNEY: No hydronephrosis. No renal calculi or suspicious focal parenchymal lesions. The kidney measures 11.5 cm in maximum dimension. SPLEEN: The spleen measures 10.4 cm in maximum dimension. FREE FLUID: None. US/US abdomen complete IMPRESSION: 1. Right kidney upper pole cyst measuring 1.9 cm maximally. 2. Remainder of the examination is normal. Electronically signed by: Jacky Narvaez MD 01/30/2025 12:14 PM EDT
== END 2025-01-30 11:13 | disposition home or self-care (01) ==
LOC: HO.US 11:12
PROVIDERS: PCP Internal Medicine; Visit Provider Internal Medicine
DX: R79.89 Other specified abnormal findings of blood chemistry (principal)
CPT/HCPCS: 76700

== ENCOUNTER → 2025-01-30 11:13 | Outpatient (BNV) | payer BC, SELFPAY | PROVIDERS: PCP Internal Medicine; Visit Provider Radiology Diagnostic Radiology | DX: N28.1 Cyst of kidney, acquired (principal) | CPT/HCPCS: 76700 ==

== ENCOUNTER 2025-02-23 09:10 | Outpatient (REF) | payer BC, SELFPAY ==
[2025-02-23 09:19] LABS: MANUAL DIFF FLAG NO
[2025-02-23 10:13] LABS: Hematocrit 43.8 % (42.0-52.0); Hemoglobin 14.9 g/dl (14.0-18.0); Imm Gran Abs Auto 0.04 X10*3/uL (0.00-0.03); Imm Gran Pct Auto 0.7 % (0.0-0.4); Lymphocytes Absolute Auto 2.3 X10*3/uL (1.2-4.9); Mean Corpuscular HGB Conc 34.0 g/dl (31.0-36.0); Mean Corpuscular Hemoglobin 28.4 pg (27.0-33.0); Mean Corpuscular Volume 83.4 fL (80.0-98.0); NRBC Abs Auto 0.000 X10*3/uL (0.0-0.012); NRBC Pct Auto 0.0 /100WBC (0.0-0.2); Platelet Count 266 X10*3/uL (160-400); Red Blood Count 5.25 X10*6/uL (4.60-5.80); White Blood Count 5.4 X10*3/uL (4.8-10.8)
[2025-02-23 10:28] LABS: Hemoglobin A1C 158.5442 umol/L; Total Hemoglobin (HGBA1C) 3953.0046 umol/L
[2025-02-23 11:15] LABS: Alanine Aminotransferase 31 U/L (0-40); Albumin Level 4.7 g/dL (3.5-5.0); Alkaline Phosphatase 68 U/L (39-117); Anion Gap 12 (12-20); Aspartate Amino Transferase 24 U/L (5-37); Blood Urea Nitrogen 14 mg/dL (9-16); Calcium 9.0 mg/dL (8.4-10.2); Carbon Dioxide 27 mmol/L (22-29); Chloride 104 mmol/L (96-108); Cholesterol 178 mg/dL (<200); Estimated Glomerular Filt Rate > 60; HDL Cholesterol 44 mg/dL (>40); Potassium 3.9 mmol/L (3.3-5.1); Sodium 139 mmol/L (135-145); Total Protein 7.1 g/dL (6.5-8.0); Triglycerides 74 mg/dL (<150)
== END 2025-02-23 09:11 | disposition home or self-care (01) ==
LOC: HO.LAB 09:10
PROVIDERS: PCP Internal Medicine; Visit Provider Internal Medicine
DX: E11.65 Type 2 diabetes mellitus with hyperglycemia (principal); E78.00 Pure hypercholesterolemia, unspecified
CPT/HCPCS: 36415; 80053; 80061; 83036; 85025

== ENCOUNTER 2025-02-26 09:13 | Outpatient (AMB) | payer BC, SELFPAY ==
--- NOTE | 2025-02-26 09:17 | A.OFFPC_ITS ---
Vital Signs 02/26/25 09:19 Height 5 ft 11 in Weight 201 lb 2 oz BMI 28.0 BP 130/70 Blood Pressure Location Lt brachial Position Sitting Pulse 77 Pulse Source Pulse Oximeter Pulse Oximetry (%) 96 Oxygen Delivery Method Room Air Intake Visit Reasons: DM, LBP Production Gear Cutter Required: No Accompanied by: Self / Same As Patient Allergies No Known Allergies Allergy (Verified 02/26/25 09:48) Medication List - Last Reconciled 02/26/25 by Liz Talavera PA-C amlodipine 10 mg PO DAILY cyclobenzaprine 10 mg PO TID PRN oxycodone 5 mg PO Q6H PRN 28 days sildenafil 50 mg PO DAILY PRN Tobacco use date assessed: 02/26/25 Fall risk assessment: No Falls in past year Last assessed Fall Risk: 02/26/25 Dental Screening Dental Screen Date: 02/26/25 Did you have a dental visit in the last 12 months?: No Did you have a dental problem in the last 6 months where you did not have access to dental care?: No Was dental information given to patient?: No HPI DM, LBP HPI Details 64-year-old male with past medical histo ry of erectile dysfunction, diabetes mellitus, hypertension, hypercholesterolemia last seen 12/[address] Braun coming in for follow up. Presenting with hypertension, diabetes mellitus, and hyperlipidemia. The patient is on amlodipine 10 mg for blood pressure control. The patient's A1c has improved to 5.8% without medication, previously at 7.2%. Cholesterol levels have decreased to 120 mg/dL from 138 mg/dL earlier this year. The patient walks 2.5 to 5 miles daily and has lost 15 pounds since the start of the year. [facility] Medical History Obesity (BMI 30-39.9) Apnea Surgical History History of vasectomy Family History Father Heart disease Mother Diabetes Brother No problems noted. Sister No problems noted. Daughter No problems noted. Daughter No problems noted. Social History (Reviewed 02/26/25 @ 09:59 by MARIAN Lowe Housing: House Alcohol intake: current Alcohol intake frequency: a few times a week Alcohol type: beer Comment: 2-3x a week 2-3 drinks Patient Tobacco Use Status: Never used Tobacco Tobacco use type: Cigarette e-Cigarette/Vaping Use: Never Used Second Hand Smoke Exposure: Yes service: No Current occupational status: employed Current occupational exposures/hazards: No Cognitive needs: No Hearing needs: No Vision needs: No Questionnaire PHQ-9 Over the last 2 weeks, how often have you been bothered by any of the following problems? 1. Little interest or pleasure in doing things: not at all 2. Feeling down, depressed, or hopeless: not at all 3. Trouble falling or staying asleep, or sleeping too much: not at all 4. Feeling tired or having little energy: not at all 5. Poor appetite or overeating: not at all 6. Feeling bad about yourself - or that you are a failure or have let yourself or your family down: not at all 7. Trouble concentrating on things, such as reading the newspaper or watching television: not at all 8. Moving or speaking so slowly that other people could have noticed. Or the opposite - being so fidgety or restless that you have been moving around a lot more than usual: not at all 9. Thoughts that you would be better off or of hurting yourself in some way: not at all Total score: 0 Depression Screening Interpretation: Negative Depression Screening Done: Yes Source: Developed by Drs. Scot Ruiz, Jessica Shelton, Michael Martinez and colleagues, with an educational tito from [employer]. Thrive Questionnaire Date Thrive assessed: 02/26/25 I am a: Patient What is your living situation today?: I have a steady place to live Within the past 12 months, did the food you bought not last and you didn't have the money to get more?: Never true Within the past 12 months, did you worry whether your food would run out before you got money to buy more?: Never true Do you have trouble paying for medicines?: I choose not to answer this question Do you have trouble getting transportation to medical appointments?: No Do you have trouble paying your heating and electricity bill?: No Do you have trouble taking care of your child, family member or friend?: No Do you have trouble with day-to-day activities such as bathing, preparing meals, shopping, managing finances, etc.?: No Are you currently unemployed and looking for a job?: No Are you interested in more education?: No Please select the resources that you would like help with: None Currently or been in a relationship where the following occur: No concerns reported THRIVE Score: 0 SUZANNE-7 AMB Questionnaire SUZANNE-7 Date SUZANNE - 7 assessed: 02/26/25 Feeling nervous, anxious, or on edge: 0 = Not at all Not being able to stop or control worryin = Not at all Worrying too much about different things: 0 = Not at all Trouble relaxin = Not at all Being so restless that it is hard to sit still: 0 = Not at all Becoming easily annoyed or irritable: 0 = Not at all Feeling afraid as if something awful might happen: 0 = Not at all Total SUZANNE-7 score (0-4 normal; 5-9 mild; 10-14 moderate; 15-21 severe): 0 Source: Developed by Drs. Scot Ruiz, Jessica Shelton, Michael Martinez and colleagues, with an educational tito from [employer]. Review of Systems Const Denies body aches, Denies chills, Denies fever(s), Denies headache(s) and Denies poor appetite Eyes Reports no additional complaints ENT Denies dizziness and Denies headache(s) Card Denies chest pain, Denies syncope, Denies edema, Denies irregular heart rhythm, Denies lightheadedness and Denies dyspnea Resp Denies dyspnea GI Denies abdominal pain, Denies nausea and Denies vomiting Reports no additional complaints Musc Reports no additional complaints and Denies abnormal gait Skin/Breast Reports system reviewed and no additional complaints, except as documented Neuro Denies abnormal gait, Denies dizziness, Denies syncope and Denies headache(s) Psych Reports no additional complaints Physical exam (Primary Care) Vital Signs: Last Vital Signs Pulse 77 02/26/25 09:19 BP 130/70 02/26/25 09:19 Pulse Ox 96 02/26/25 09:19 Oxygen Delivery Method Room Air 02/26/25 09:19 BMI result Body Mass Index 28.0 Tobacco/Smoking Status: Tobacco use Status Tobacco use date assessed 02/26/25 02/26/25 09:26 Patient Tobacco Use Status Never used Tobacco 02/26/25 09:26 Tobacco use type Cigarette 02/26/25 09:26 e-Cigarette/Vaping Use Never Used 02/26/25 09:26 PHQ-9: PHQ-9 Score PHQ-9: Total score 0 02/26/25 09:48 Depression Screening Interpretation: Negative Thrive Assessment: Date of Thrive Assessment Date Thrive assessed 02/26/25 02/26/25 09:26 Currently or been in a relationship where the following occur: No concerns reported Const General: cooperative, healthy appearing, comfortable and no acute distress Orientation/consciousness: patient oriented x3 HENMT Head: Yes normocephalic Ears: hearing grossly normal bilaterally General nose exam: Normal external nose present Eyes General: appearance normal, both eyes and all related structures Conjunctivae: conjunctivae normal Neck Neck: Yes full ROM and Yes no lymphadenopathy Resp Effort & Inspection: normal respiratory effort Auscultation: clear to auscultation bilaterally, no crackles, no rales, no r honchi and no wheezes Cardio Rate: regular rate Rhythm: regular rhythm Skin General skin exam: no rashes or lesions noted Neuro General: patient oriented x3 Gait exam (Neuro): Normal gait present Extrem General: Yes normal to inspection, Yes full ROM and No edema Psych Affect: normal affect Attitude: cooperative Insight: Good insight present (Psych) Judgement: Good judgement present (Psych) Coding Level of Care Code Est Pt Level 3 (42125) Diagnoses Hypertension I10 Hypercholesterolemia E78.00 Type 2 diabetes mellitus with hyperglycemia E11.65 LFT elevation R79.89 Overweight (BMI 25.0-29.9) E66.3 Assessment & Plan Assessment & Plan (1) Hypertension: Code(s): I10 - Essential (primary) hypertension Category: Medical Plan: Continue on current blood pressure medication. Avoid salt intake and encourage healthy diet and regular exercise. Continue on amlodipine 10 mg (2) Hypercholesterolemia: Code(s): E78.00 - Pure hypercholesterolemia, unspecified Category: Medical Plan: Avoid foods that are high in cholesterol such as red meat, fried foods, eggs and baked goods. Triglyceride goal of less than 150 and LDL goal of less than 100. Not currently on medical management. He is declining medical management at this time and would like to continue with conservative measures ASCVD risk calculator 12.0% for 10 year risk recommending low to moderate intensity statin at this time. I did discuss this with the patient and he would like to continue with conservative measures at this time understanding the risk. (3) Type 2 diabetes mellitus with hyperglycemia: Code(s): E11.65 - Type 2 diabetes mellitus with hyperglycemia Category: Medical Plan: Decrease the amount of carbohydrates such as pasta, bread, rice, and potatoes and limit the amount of sweets. Although fruits are generally healthy they should be eaten in moderation as they are still high in sugar. Hemoglobin A1c goal of less than 7%. A1c on last blood work 5.8% without medical management. (4) LFT elevation: Code(s): R79.89 - Other specified abnormal findings of blood chemistry Category: Medical Plan: Liver tests normalized on last labs. (5) Overweight (BMI 25.0-29.9): Code(s): E66.3 - Overweight Category: Medical Plan: Healthy diet and regular exercise is encouraged. Plan The patient will continue on amlodipine 10 mg for hypertension management, as blood pressure is well controlled. For diabetes management, the patient will maintain current lifestyle modifications, as A1c levels have improved significantly without medication. Regarding hyperlipidemia, although cholesterol levels have improved, a low to moderate intensity statin is recommended due to a 12% 10-year cardiovascular risk. The patient is encouraged to continue dietary changes and regular exercise to further manage weight and cholesterol levels. This note was constructed using voice recognition software. While every effort has been made to ensure accuracy and dye and chemical coordinator, still areas may have been included sometimes these areas may affect the content or meeting of the given symptoms. Total time spent caring for the patient today was 20 minutes. This includes time spent before the visit reviewing the chart, time spent during the visit, and time spent after the visit and documentation. Patient was informed and verbally consented to the use of an ambient scribe for clinic note documentation during this visit. Orders: Orders Lipid Panel 3 Months E78.00 - Pure hypercholesterolemia, unspecified Hemoglobin A1c 3 Months E11.65 - Type 2 diabetes mellitus with hyperglycemia
[2025-02-26 09:19] VITALS: BP 130/70; PULSE 77; O2SAT 96; BMI 28.0
== END 2025-02-26 10:33 | disposition home or self-care (01) ==
LOC: HO.HMCH 09:14
PROVIDERS: PCP Internal Medicine
DX: I10 Essential (primary) hypertension (principal); E78.00 Pure hypercholesterolemia, unspecified; E11.65 Type 2 diabetes mellitus with hyperglycemia; R79.89 Other specified abnormal findings of blood chemistry; E66.3 Overweight

== ENCOUNTER 2025-06-13 09:16 | Outpatient (REF) | payer BC, SELFPAY ==
[2025-06-13 10:48] LABS: Cholesterol 153 mg/dL (<200); HDL Cholesterol 43 mg/dL (>40); Triglycerides 74 mg/dL (<150)
== END 2025-06-13 09:17 | disposition home or self-care (01) ==
LOC: HO.LAB 09:16
PROVIDERS: PCP Internal Medicine
DX: E11.65 Type 2 diabetes mellitus with hyperglycemia (principal); R79.89 Other specified abnormal findings of blood chemistry; E78.00 Pure hypercholesterolemia, unspecified
CPT/HCPCS: 36415; 80061; 82570; 83036